=== PATIENT | female | born 1940 | race Caucasian/White ===

== ENCOUNTER 2019-03-29 16:51 | Inpatient (IN) | payer MEDICARE, OTHER ==
[~2019-03-29] VITALS: Ht 157.5 cm; Wt 61.2 kg
[2019-03-29] MEDS ORDERED: Z GUARD REMEDY PASTE 57 GM TUBE TOP PRN (17:45)
[2019-03-29] MEDS ORDERED: MAGNESIUM HYDROXIDE 30 ML LIQUID UDC PO PRN (17:45)
--- NOTE | 2019-03-29 17:45 | NUR ---
PATIENT ADMITTED FROM [facility] STATUS POST CERVICAL LAMINECTOMY, ALERT, ORIENTED X3, NO SOB,RESP EVEN NONLABORED, SKIN WARM AND DRY TO TOUCH, INCISION INTACT, ROB INTACT, TO THE BACK OF THE NECK, DRY AND CLEAN, WITH LEFT SIDED WEAKNESS, MD AWARE TO RECONCILE THE MEDS, NO DISTRESS NOTED, ENDORSED NEXT SHIFT ACCORDINGLY
[2019-03-29] MEDS ORDERED: DEXTROSE 50% 50 ML DISP.SYRIN IV PRN (18:30)
[2019-03-29 19:40] VITALS: BP 130/78
[2019-03-29 20:00] VITALS: BP 118/66
[2019-03-29] MEDS: BLOOD SUGAR DIAGNOSTIC 1 EACH STRIP VI SCH (20:42)
[2019-03-29] MEDS: INSULIN REGULAR, HUMAN 300 UNIT/3 ML VIAL SQ PRN (20:45)
[2019-03-29] MEDS ORDERED: DOCUSATE SODIUM 100 MG CAPSULE PO SCH (21:00)
[2019-03-29] MEDS: OXYCODONE HCL 5 MG TABLET PO PRN (21:15)
[2019-03-30] MEDS: OXYCODONE HCL 5 MG TABLET PO PRN ×3 (00:56→11:48)
--- NOTE | 2019-03-30 01:19 | NUR ---
Received patient in bed upon initial rounds. AAOx3-4. Patient been screaming on & off @beginning of the shift. Repositioned for comfort. HOB up @ 45degrees at all times. VSS. Needs attended. Medicated for pain as ordered. Kristin intact DANIA posterior neck. Bedrest maintained. Left side hemiparesis noted. LUE/LLE weak. Fall precautions maintained. Bed alarm on. Tolerated po meds well. Sykes catheter intact draining yellow urine.Patient has hx of urinary retention. Turned to sides. Accucheck @ 2100 175 with coverage given. Will monitor patient.
[2019-03-30 05:00] VITALS: BP 132/90
[2019-03-30] MEDS: BLOOD SUGAR DIAGNOSTIC 1 EACH STRIP VI SCH ×4 (06:30→20:48)
--- NOTE | 2019-03-30 06:54 | NUR ---
End of shift noted: Patient been up all night. Repositioned for comfort. Turned to sides. HOB up @ all times, 45 degrees. Patient medicated with Oxy 10mg po for pain. patient still keep on calling for pain and wants to be turned [id number]. Posterior neck with augusto [employer]. Fall precautions maintained. Siderails up for safety. Sykes catheter intact draining yellow urine. I & O monitor. Incontinent of BM x1 kept clean and dry. Needs attended. Will monitor patient. Left side weakness noted, with contractures to left lower extremity. LLE with brace intact.VSS.
[2019-03-30] MEDS ORDERED: PANTOPRAZOLE SODIUM 40 MG TABLET.DR PO SCH (07:00)
[2019-03-30 07:16] LABS: BASOPHILS # (AUTO) 0.1 K/uL (0.0-8.0); BASOPHILS % (AUTO) 0.7 % (0.0-2.0); EOSINOPHILS # (AUTO) 0.2 K/uL (0.0-0.7); EOSINOPHILS % (AUTO) 2.5 % (0.0-7.0); HEMATOCRIT 31.3 % (31.2-41.9); HEMOGLOBIN 10.7 g/dL (10.9-14.3); LYMPHOCYTES # (AUTO) 1.4 K/uL (20.0-40.0); LYMPHOCYTES % (AUTO) 16.3 % (20.5-51.5); MEAN CORPUSCULAR HEMOGLOBIN 32.8 uug (24.7-32.8); MEAN CORPUSCULAR HGB CONC 34 g/dL (32.3-35.6); MEAN CORPUSCULAR VOLUME 95.7 fL (75.5-95.3); MONOCYTES # (AUTO) 0.6 K/uL (2.0-10.0); MONOCYTES % (AUTO) 6.9 % (0.0-11.0); NEUTROPHILS # (AUTO) 6.5 K/uL (1.8-8.9); NEUTROPHILS % (AUTO) 73.6 % (38.5-71.5); PLATELET COUNT (AUTO) 319 K/uL (179-408); RED BLOOD CELL COUNT(AUTO) 3.27 MIL/uL (3.63-4.92); WHITE BLOOD COUNT (AUTO) 8.9 K/uL (3.8-11.8)
[2019-03-30 07:24] LABS: MAGNESIUM 1.5 mg/dL (1.8-2.4); POTASSIUM 4.2 mmol/L (3.5-5.1)
[2019-03-30 08:00] VITALS: BP 148/71
--- NOTE | 2019-03-30 10:42 | NUR ---
Received patient in room, awake. Pt. is AAO x 2-3. IN NO acute distress or SOB noted. Patient S/P Cervical Laminectomy. Surgical site on lower neck with augusto, dry and open to air. Vital signs taken and stable. Patient noted with severe upper and lower left sided weakness. F/C in place for retention; intact and patent. Pt. noted with nausea/vomiting, paged absence management consultant MD to reconcile meds and regarding pt.'s condition, waiting absence management consultant back. Needs attended, safety measures in place and will continue with care.
[2019-03-30] MEDS ORDERED: OXYCODONE HCL 5 MG TABLET PO PRN ×2 (11:45→12:00)
[2019-03-30] MEDS: ONDANSETRON ODT 4 MG TAB.RAPDIS SL PRN (11:50)
[2019-03-30] MEDS ORDERED: MAGNESIUM OXIDE 400 MG TABLET PO ONE (12:00)
--- NOTE | 2019-03-30 12:12 | NUR ---
Patient refused OXYIR 10mg pain pill after asking for pain medication and moaning while being repositioned. Returned medication after verifying with another RN.
[2019-03-30] MEDS: INSULIN REGULAR, HUMAN 300 UNIT/3 ML VIAL SQ PRN ×3 (12:22→20:53)
[2019-03-30] MEDS: HYDROCHLOROTHIAZIDE 12.5 MG CAPSULE PO SCH (13:26)
[2019-03-30] MEDS: LINAGLIPTIN 5 MG TABLET PO SCH (13:26)
[2019-03-30] MEDS: LOSARTAN POTASSIUM 50 MG TABLET PO SCH (14:06)
[2019-03-30] MEDS: HEPARIN SODIUM,PORCINE 5,000 UNITS/ML VIAL SQ SCH ×2 (14:07→20:54)
[2019-03-30 16:43] VITALS: BP 120/72
[2019-03-30] MEDS: DOCUSATE SODIUM 100 MG CAPSULE PO SCH (16:43)
[2019-03-30] MEDS ORDERED: Medication Not On Formulary EA (Lubiprostone (Amitiza) 24 MCG) PO SCH (17:00)
--- NOTE | 2019-03-30 17:56 | NUR ---
Patient sitting up in bed at this time, Vital signs stable. IN NO acute distress. Patient noted screaming when in need of care. Repositioned for comfort as needed, explained to patient to use call light when in need of help. Patient assisted with feeding. 2 person assist with care. Tolerated due medications well. Monitored closely, safety measures in place, call light left at bed side and will continue with care.
--- NOTE | 2019-03-30 18:28 | NUR ---
Patient seen by Dr. Cash and with an order for Psych eval. Paged Dr. Acosta and informed regarding patient's condition.
[2019-03-30 20:03] VITALS: BP 127/63
[2019-03-30] MEDS: GABAPENTIN 100 MG CAPSULE PO SCH (20:42)
[2019-03-30] MEDS: MONTELUKAST SODIUM 10 MG TABLET PO SCH (20:43)
[2019-03-30] MEDS: SIMVASTATIN 40 MG TABLET PO SCH (20:43)
[2019-03-30] MEDS ORDERED: Medication Not On Formulary EA (Heparin Sodium,Porcine (Heparin Sodium) 5,000 UNIT) SUBCUT SCH (21:00)
--- NOTE | 2019-03-31 00:08 | NUR ---
awake upon rounds. aaox2-3 no acute distress noted. VSS. kept comfortable. repositioned for comfort. turned q2hr. needs attended. Will monitor patient. Denies any pain nor any discomfort. Sykes catheter intact draining yellow urine. I & O monitor.
[2019-03-31 04:00] VITALS: BP 127/66
[2019-03-31] MEDS: PANTOPRAZOLE SODIUM 40 MG TABLET.DR PO SCH (06:33)
[2019-03-31] MEDS: BLOOD SUGAR DIAGNOSTIC 1 EACH STRIP VI SCH ×4 (06:37→20:48)
[2019-03-31 07:42] VITALS: BP 120/70
[2019-03-31] MEDS: LINAGLIPTIN 5 MG TABLET PO SCH (08:24)
[2019-03-31] MEDS: EZETIMIBE 10 MG TABLET PO SCH (08:25)
[2019-03-31] MEDS: DOCUSATE SODIUM 100 MG CAPSULE PO SCH ×2 (08:25→16:35)
[2019-03-31] MEDS: LOSARTAN POTASSIUM 50 MG TABLET PO SCH (08:25)
[2019-03-31] MEDS: HYDROCHLOROTHIAZIDE 12.5 MG CAPSULE PO SCH (08:25)
[2019-03-31] MEDS: HEPARIN SODIUM,PORCINE 5,000 UNITS/ML VIAL SQ SCH ×2 (08:37→20:52)
[2019-03-31] MEDS ORDERED: Medication Not On Formulary EA (Sitagliptin Phosphate (Januvia) 25 MG) PO SCH (09:00)
[2019-03-31] MEDS ORDERED: Medication Not On Formulary EA (Esomeprazole Mag Trihydrate (Nexium) 40 MG) PO SCH (09:00)
[2019-03-31] MEDS ORDERED: Medication Not On Formulary EA (Losartan/Hydrochlorothiazide (Losartan-Hctz 100-12.5 Mg PO SCH (09:00)
--- NOTE | 2019-03-31 10:31 | NUR ---
PATIENT ON AND OFF SCREAMING IF SHE NEEDS SOMETHING. PATIENT REORIENT TO CALL LIGHT IF NEED SOMETHING. PATIENT FOR PSYCH CONSULT FOR SUICIDAL THOUGHTS WITHOUT PLAN. ASSISTED WITH BREAKFAST. CONSUMED ABOUT 80% OF MEAL. NOT IN DISTRESS. WILL CONTINUE MONITOR
[2019-03-31] MEDS: INSULIN REGULAR, HUMAN 300 UNIT/3 ML VIAL SQ PRN ×2 (11:43→20:54)
[2019-03-31] MEDS: FLUTICASONE/VILANTEROL 1 EACH BLST.W.DEV INH SCH (12:36)
--- NOTE | 2019-03-31 13:51 | NUR ---
PATIENT SEEN AND EXAMINED BY MD TRONCOSO FOR PSYCH CONSULT FOR VERBALIZING WANTS TO YESTERDAY. MD ORDERED LEXAPRO 5MG FOR ANTI-DEPRESSION. PATIENT NO VERBALIZATION OF ANYTHING DURING ROUNDS. WILL CONTINUE MONITOR
[2019-03-31 15:36] VITALS: BP 102/59
--- NOTE | 2019-03-31 17:12 | NUR ---
PATIENT SEEN AND EXAMINED BY LINCOLN EDWARD WITH ORDER RESUME ASPIRIN ON APR 07. WILL CONTINUE MONITOR
[2019-03-31] MEDS: GABAPENTIN 100 MG CAPSULE PO SCH (20:42)
[2019-03-31] MEDS: MONTELUKAST SODIUM 10 MG TABLET PO SCH (20:42)
[2019-03-31] MEDS: SIMVASTATIN 40 MG TABLET PO SCH (20:42)
[2019-03-31 20:43] VITALS: BP 104/64
[2019-03-31] MEDS: INSULIN GLARGINE,HUM 300 UNITS/3 ML CARTRIDGE SQ SCH (20:53)
[2019-04-01] MEDS: OXYCODONE HCL 5 MG TABLET PO PRN ×2 (00:18→17:19)
--- NOTE | 2019-04-01 04:29 | NUR ---
pt extremely restless during night with constant screaming that she wants to . comfort measures put in place, patient medicated for pain in the neck and reposition every hour. pt unable to sleep at all during shift.
[2019-04-01 05:49] VITALS: BP 103/58
[2019-04-01] MEDS: PANTOPRAZOLE SODIUM 40 MG TABLET.DR PO SCH (06:11)
[2019-04-01] MEDS: BLOOD SUGAR DIAGNOSTIC 1 EACH STRIP VI SCH ×4 (06:54→20:10)
[2019-04-01] MEDS: LINAGLIPTIN 5 MG TABLET PO SCH (08:15)
[2019-04-01] MEDS: HYDROCHLOROTHIAZIDE 12.5 MG CAPSULE PO SCH (08:15)
[2019-04-01] MEDS: EZETIMIBE 10 MG TABLET PO SCH (08:15)
[2019-04-01] MEDS: DOCUSATE SODIUM 100 MG CAPSULE PO SCH ×2 (08:16→17:19)
[2019-04-01] MEDS: ESCITALOPRAM OXALATE 10 MG TABLET PO SCH (08:17)
[2019-04-01] MEDS: FLUTICASONE/VILANTEROL 1 EACH BLST.W.DEV INH SCH (08:18)
[2019-04-01] MEDS: HEPARIN SODIUM,PORCINE 5,000 UNITS/ML VIAL SQ SCH ×2 (08:18→20:04)
[2019-04-01] MEDS: INSULIN REGULAR, HUMAN 300 UNIT/3 ML VIAL SQ PRN ×4 (08:22→20:15)
[2019-04-01] MEDS: LOSARTAN POTASSIUM 50 MG TABLET PO SCH (08:29)
--- NOTE | 2019-04-01 14:05 | NUR ---
INTERDISCIPLINARY TEAM CONFERENCE
--- NOTE | 2019-04-01 14:58 | NUR ---
INDIVIDUALIZED PLAN OF CARE
[2019-04-01] MEDS: BISACODYL 5 MG TABLET.DR PO PRN (17:18)
[2019-04-01 18:10] VITALS: BP 138/63
--- NOTE | 2019-04-01 18:24 | NUR ---
RECEIVED PATIENT AWAKE IN BED. CONTINUE MONITORING BEHAVIORAL PROBLEM. ON PAIN MANAGEMENT IF NEEDED WITH GOOD EFFECT. PATIENT CONTINUE TURN POSITIONING. SKIN CARE PROVIDED. NOT IN DISTRESS. WILL CONTINUE MONITOR
--- NOTE | 2019-04-01 19:33 | NUR ---
PATIENT IS IN BED, ASLEEP, BUT EASILY AROUSED WITH CALLING OF NAME. ALERT AND VERBALLY RESPONSIVE. DENIES PAIN AT THIS TIME. NO RESPIRATORY OR ACUTE DISTRESS AT THIS TIME. PATIENT CONTINUES TO DRAIN CLEAR YELLOW URINE. FALL AND SAFETY PRECAUTIONS OBSERVED, WILL CONTINUE TO MONITOR PATIENT. ALL NEEDS ATTENDED.
[2019-04-01] MEDS: SIMVASTATIN 40 MG TABLET PO SCH (20:03)
[2019-04-01] MEDS: GABAPENTIN 100 MG CAPSULE PO SCH (20:03)
[2019-04-01] MEDS: MONTELUKAST SODIUM 10 MG TABLET PO SCH (20:03)
[2019-04-01] MEDS: INSULIN GLARGINE,HUM 300 UNITS/3 ML CARTRIDGE SQ SCH (20:12)
[2019-04-01 20:40] VITALS: BP 130/62
[2019-04-01 20:45] VITALS: BP 104/43
[2019-04-02] MEDS: OXYCODONE HCL 5 MG TABLET PO PRN (03:59)
[2019-04-02 04:48] VITALS: BP 124/63
--- NOTE | 2019-04-02 06:19 | NUR ---
PATIENT IS IN BED WITH HEAD OF BED ELEVATED, TURNED TO HER RIGHT SIDE. ALERT AND VERBALLY RESPONSIVE. CAN MAKE NEEDS KNOWN. DENIES PAIN AT THIS TIME. DENIES DIFFICULTY BREATHING. RESPIRATIONS EVEN AND UNLABORED. FALL AND SAFETY PRECAUTIONS OBSERVED. RECEIVED 1-PERSON ASSIST WITH ADLS. KEPT PATIENT WARM, DRY, AND COMFORTABLE. LEFT PATIENT IN BED WITH BED WHEELS LOCKED, CALL LIGHT AND PERSONAL BELONGINGS WITHIN REACH. BED AT LOW POSITION AND BED ALARM ON.
[2019-04-02] MEDS: PANTOPRAZOLE SODIUM 40 MG TABLET.DR PO SCH (06:21)
[2019-04-02] MEDS: BLOOD SUGAR DIAGNOSTIC 1 EACH STRIP VI SCH ×4 (06:38→20:37)
[2019-04-02 07:21] LABS: BASOPHILS % (AUTO) 0.5 % (0.0-2.0); EOSINOPHILS # (AUTO) 0.2 K/uL (0.0-0.7); EOSINOPHILS % (AUTO) 3.1 % (0.0-7.0); HEMATOCRIT 30.4 % (31.2-41.9); HEMOGLOBIN 10.4 g/dL (10.9-14.3); LYMPHOCYTES # (AUTO) 1.7 K/uL (20.0-40.0); LYMPHOCYTES % (AUTO) 22.9 % (20.5-51.5); MEAN CORPUSCULAR HEMOGLOBIN 32.6 uug (24.7-32.8); MEAN CORPUSCULAR HGB CONC 34 g/dL (32.3-35.6); MEAN CORPUSCULAR VOLUME 95.4 fL (75.5-95.3); MONOCYTES # (AUTO) 0.7 K/uL (2.0-10.0); MONOCYTES % (AUTO) 9.5 % (0.0-11.0); NEUTROPHILS # (AUTO) 4.8 K/uL (1.8-8.9); PLATELET COUNT (AUTO) 400 K/uL (179-408); RED BLOOD CELL COUNT(AUTO) 3.19 MIL/uL (3.63-4.92); WHITE BLOOD COUNT (AUTO) 7.5 K/uL (3.8-11.8)
[2019-04-02 07:33] LABS: MAGNESIUM 1.7 mg/dL (1.8-2.4); PHOSPHOROUS 4.5 mg/dL (2.5-4.9); POTASSIUM 4.1 mmol/L (3.5-5.1)
[2019-04-02 07:34] VITALS: BP 113/59
[2019-04-02] MEDS: ESCITALOPRAM OXALATE 10 MG TABLET PO SCH (08:53)
[2019-04-02] MEDS: DOCUSATE SODIUM 100 MG CAPSULE PO SCH ×2 (08:53→16:39)
[2019-04-02] MEDS: FLUTICASONE/VILANTEROL 1 EACH BLST.W.DEV INH SCH (08:53)
[2019-04-02] MEDS: LOSARTAN POTASSIUM 50 MG TABLET PO SCH (08:55)
[2019-04-02] MEDS: LINAGLIPTIN 5 MG TABLET PO SCH (08:55)
[2019-04-02] MEDS: EZETIMIBE 10 MG TABLET PO SCH (08:55)
[2019-04-02] MEDS: HEPARIN SODIUM,PORCINE 5,000 UNITS/ML VIAL SQ SCH ×2 (09:07→20:40)
[2019-04-02] MEDS: HYDROCHLOROTHIAZIDE 12.5 MG CAPSULE PO SCH (09:09)
[2019-04-02] MEDS: INSULIN REGULAR, HUMAN 300 UNIT/3 ML VIAL SQ PRN ×3 (12:15→20:40)
[2019-04-02 15:12] VITALS: BP 108/52
[2019-04-02] MEDS ORDERED: MAGNESIUM OXIDE 400 MG TABLET PO ONE (15:30)
--- NOTE | 2019-04-02 19:29 | NUR ---
Patient in stable condition, vital signs stable. IN NO acute distress or SOB noted. Pt. able to express needs. Due medications administered. Pt. denies pain at this time. Stated she does not want any pain pills. Repositioned for comfort as needed. Patient assisted with feeding. Monitored closely, safety measures in place, call light left at bed side, endorsed to next shift and will continue with care.
--- NOTE | 2019-04-02 19:40 | NUR ---
RECEIVED PATIENT IN BED, ASLEEP, BUT EASILY AROUSED. ALERT AND VERBALLY RESPONSIVE. DENIES PAIN AT THIS TIME. NO RESPIRATORY OR ACUTE DISTRESS AT THIS TIME. HAS BACA CATHETER, DRAINING CLEAR YELLOW URINE. FALL AND SAFETY PRECAUTIONS OBSERVED, WILL CONTINUE TO MONITOR PATIENT. ALL NEEDS ATTENDED.
[2019-04-02 20:14] VITALS: BP 112/66
[2019-04-02] MEDS: MONTELUKAST SODIUM 10 MG TABLET PO SCH (20:36)
[2019-04-02] MEDS: GABAPENTIN 100 MG CAPSULE PO SCH (20:36)
[2019-04-02] MEDS: SIMVASTATIN 40 MG TABLET PO SCH (20:36)
[2019-04-02] MEDS: INSULIN GLARGINE,HUM 300 UNITS/3 ML CARTRIDGE SQ SCH (20:39)
[2019-04-03] MEDS: OXYCODONE HCL 5 MG TABLET PO PRN (04:05)
--- NOTE | 2019-04-03 05:42 | NUR ---
PATIENT IS IN BED WITH HEAD OF BED ELEVATED, TURNED TO HER RIGHT SIDE. ALERT AND VERBALLY RESPONSIVE. CAN MAKE NEEDS KNOWN. DENIES PAIN AT THIS TIME. RECEIVED OXYCODONE ORDERED FOR PAIN, NOTED WITH RELIEF/ EFFECTIVE. RESPIRATIONS EVEN AND UNLABORED. FALL AND SAFETY PRECAUTIONS OBSERVED. RECEIVED 1-PERSON ASSIST WITH ADLS. KEPT PATIENT WARM, DRY, AND COMFORTABLE. BACA CATHETER DRAINING CLEAR YELLOW URINE. BACA CATHETER INTACT AND PATENT. LEFT PATIENT IN BED WITH BED WHEELS LOCKED, CALL LIGHT AND PERSONAL BELONGINGS WITHIN REACH. BED AT LOW POSITION AND BED ALARM ON.
[2019-04-03] MEDS: PANTOPRAZOLE SODIUM 40 MG TABLET.DR PO SCH (06:06)
[2019-04-03] MEDS: BLOOD SUGAR DIAGNOSTIC 1 EACH STRIP VI SCH ×4 (06:45→20:41)
[2019-04-03 08:00] VITALS: BP 105/54
[2019-04-03] MEDS: ESCITALOPRAM OXALATE 10 MG TABLET PO SCH (09:09)
[2019-04-03] MEDS: DOCUSATE SODIUM 100 MG CAPSULE PO SCH ×2 (09:09→16:51)
[2019-04-03] MEDS: HYDROCHLOROTHIAZIDE 12.5 MG CAPSULE PO SCH (09:11)
[2019-04-03] MEDS: LINAGLIPTIN 5 MG TABLET PO SCH (09:11)
[2019-04-03] MEDS: EZETIMIBE 10 MG TABLET PO SCH (09:11)
[2019-04-03] MEDS: FLUTICASONE/VILANTEROL 1 EACH BLST.W.DEV INH SCH (09:11)
[2019-04-03] MEDS: HEPARIN SODIUM,PORCINE 5,000 UNITS/ML VIAL SQ SCH ×2 (09:14→20:39)
[2019-04-03] MEDS: LOSARTAN POTASSIUM 50 MG TABLET PO SCH (12:49)
[2019-04-03 16:32] VITALS: BP 122/64
--- NOTE | 2019-04-03 19:17 | NUR ---
RECEIVED PATIENT IN BED. AWAKE AND ALERT AND VERBALLY RESPONSIVE. AT BEDSIDE. DENIES PAIN AT THIS TIME. NO RESPIRATORY OR ACUTE DISTRESS AT THIS TIME. HAS BACA CATHETER, DRAINING CLEAR YELLOW URINE. FALL AND SAFETY PRECAUTIONS OBSERVED, WILL CONTINUE TO MONITOR PATIENT. ALL NEEDS ATTENDED.
[2019-04-03] MEDS: SIMVASTATIN 40 MG TABLET PO SCH (20:35)
[2019-04-03] MEDS: MONTELUKAST SODIUM 10 MG TABLET PO SCH (20:36)
[2019-04-03] MEDS: GABAPENTIN 100 MG CAPSULE PO SCH (20:36)
[2019-04-03] MEDS: INSULIN GLARGINE,HUM 300 UNITS/3 ML CARTRIDGE SQ SCH (20:39)
[2019-04-03] MEDS: INSULIN REGULAR, HUMAN 300 UNIT/3 ML VIAL SQ PRN (20:40)
[2019-04-03 21:08] VITALS: BP 130/62
[2019-04-04 04:00] VITALS: BP 114/61
--- NOTE | 2019-04-04 05:31 | NUR ---
PATIENT IS IN BED, ASLEEP BUT EASILY AROUSED. NO RESPIRATORY OR ACUTE DISTRESS. NO FACIAL GRIMACING NOTED AT THIS TIME. FALL AND SAFETY PRECAUTIONS OBSERVED. RECEIVED 1-PERSON ASSIST WITH ADLS. BACA CATHETER DRAINING CLEAR YELLOW URINE. BACA CATHETER INTACT AND PATENT. KEPT PATIENT WARM, DRY, AND COMFORTABLE. ALL NEEDS ATTENDED.
[2019-04-04] MEDS: BISACODYL 5 MG TABLET.DR PO PRN (06:03)
[2019-04-04] MEDS: PANTOPRAZOLE SODIUM 40 MG TABLET.DR PO SCH (06:03)
[2019-04-04] MEDS: BLOOD SUGAR DIAGNOSTIC 1 EACH STRIP VI SCH ×4 (06:41→20:25)
[2019-04-04 08:00] VITALS: BP 112/49
[2019-04-04] MEDS: FLUTICASONE/VILANTEROL 1 EACH BLST.W.DEV INH SCH (10:19)
[2019-04-04] MEDS: DOCUSATE SODIUM 100 MG CAPSULE PO SCH ×2 (10:20→17:31)
[2019-04-04] MEDS: ESCITALOPRAM OXALATE 10 MG TABLET PO SCH (10:21)
[2019-04-04] MEDS: LOSARTAN POTASSIUM 50 MG TABLET PO SCH (10:21)
[2019-04-04] MEDS: HYDROCHLOROTHIAZIDE 12.5 MG CAPSULE PO SCH (10:22)
[2019-04-04] MEDS: LINAGLIPTIN 5 MG TABLET PO SCH (10:30)
[2019-04-04] MEDS: EZETIMIBE 10 MG TABLET PO SCH (10:31)
[2019-04-04] MEDS: HEPARIN SODIUM,PORCINE 5,000 UNITS/ML VIAL SQ SCH ×2 (10:31→20:20)
[2019-04-04 16:36] VITALS: BP 95/68
[2019-04-04] MEDS: INSULIN REGULAR, HUMAN 300 UNIT/3 ML VIAL SQ PRN ×2 (18:43→20:21)
[2019-04-04] MEDS: SIMVASTATIN 40 MG TABLET PO SCH (20:15)
[2019-04-04] MEDS: GABAPENTIN 100 MG CAPSULE PO SCH (20:15)
[2019-04-04] MEDS: MONTELUKAST SODIUM 10 MG TABLET PO SCH (20:16)
[2019-04-04] MEDS: INSULIN GLARGINE,HUM 300 UNITS/3 ML CARTRIDGE SQ SCH (20:21)
[2019-04-04 20:30] VITALS: BP 100/55
--- NOTE | 2019-04-04 20:47 | NUR ---
Received pt resting in bed. AAO x2-3. No acute distress noted. Denies pain. Turned and repositioned. Sykes catheter draining with clear yellow colored urine. Accucheck 182. Insulin coverage given as per sliding scale. Due meds given as ordered. Safety measures maintained. Call light and personal items within reach. Will continue to monitor.
[2019-04-05 04:00] VITALS: BP 98/53
[2019-04-05] MEDS: PANTOPRAZOLE SODIUM 40 MG TABLET.DR PO SCH (06:14)
[2019-04-05] MEDS: BLOOD SUGAR DIAGNOSTIC 1 EACH STRIP VI SCH ×4 (06:41→20:43)
[2019-04-05 07:32] VITALS: BP 105/60
[2019-04-05] MEDS: ESCITALOPRAM OXALATE 10 MG TABLET PO SCH (08:46)
[2019-04-05] MEDS: DOCUSATE SODIUM 100 MG CAPSULE PO SCH ×2 (08:46→17:11)
[2019-04-05] MEDS: EZETIMIBE 10 MG TABLET PO SCH (08:46)
[2019-04-05] MEDS: LINAGLIPTIN 5 MG TABLET PO SCH (08:46)
[2019-04-05] MEDS: HYDROCHLOROTHIAZIDE 12.5 MG CAPSULE PO SCH (08:46)
[2019-04-05] MEDS: HEPARIN SODIUM,PORCINE 5,000 UNITS/ML VIAL SQ SCH ×2 (08:48→20:41)
[2019-04-05] MEDS: FLUTICASONE/VILANTEROL 1 EACH BLST.W.DEV INH SCH (08:51)
[2019-04-05] MEDS: LOSARTAN POTASSIUM 50 MG TABLET PO SCH (08:56)
[2019-04-05] MEDS: INSULIN REGULAR, HUMAN 300 UNIT/3 ML VIAL SQ PRN ×2 (11:57→17:14)
[2019-04-05] MEDS: BISACODYL 5 MG TABLET.DR PO PRN (15:43)
[2019-04-05 15:44] VITALS: BP 98/49
[2019-04-05] MEDS: OXYCODONE HCL 5 MG TABLET PO PRN (15:44)
--- NOTE | 2019-04-05 17:15 | NUR ---
BS of 157mg/dl, Insulin 2 units administered per sliding scale.
--- NOTE | 2019-04-05 18:55 | NUR ---
Patient is AAO x 2; able to express needs. NO acute distress noted. Vital signs taken and stable for patient. Due meds administered and tolerated well. Repositioned for comfort throughout shift and as needed. OXYIR 10mg 2 tabs PRN administered for generalized pain and effective. Patient no C/O pain at this time. Patient assisted with feeding during shift. Monitored closely, safety measures in place, call light left at bed side, endorsed to next shift and will continue with care.
--- NOTE | 2019-04-05 19:37 | NUR ---
Endorsed to PM nurse.
--- NOTE | 2019-04-05 19:42 | NUR ---
RECEIVED PATIENT IN BED. ALERT AND VERBALLY RESPONSIVE. DENIES PAIN AT THIS TIME. NO RESPIRATORY OR ACUTE DISTRESS AT THIS TIME. HAS BACA CATHETER, DRAINING CLEAR YELLOW URINE. FALL AND SAFETY PRECAUTIONS OBSERVED, WILL CONTINUE TO MONITOR PATIENT. ALL NEEDS ATTENDED.
[2019-04-05 20:00] VITALS: BP 105/63
[2019-04-05] MEDS: SIMVASTATIN 40 MG TABLET PO SCH (20:35)
[2019-04-05] MEDS: GABAPENTIN 100 MG CAPSULE PO SCH (20:35)
[2019-04-05] MEDS: MONTELUKAST SODIUM 10 MG TABLET PO SCH (20:35)
[2019-04-05] MEDS: INSULIN GLARGINE,HUM 300 UNITS/3 ML CARTRIDGE SQ SCH (20:42)
[2019-04-06 05:00] VITALS: BP 123/75
--- NOTE | 2019-04-06 06:22 | NUR ---
PATIENT IS IN BED, ALERT AND VERBALLY RESPONSIVE. AFEBRILE. NO RESPIRATORY DISTRESS. NO COMPLAINTS OF PAIN THROUGHOUT THE SHIFT. PATIENT SLEPT THROUGH THE NIGHT WITHOUT DIFFICULTY. KEPT PATIENT WARM, DRY, AND COMFORTABLE. ALL NEEDS ATTENDED. FALL AND SAFETY PRECAUTIONS OBSERVED.
--- NOTE | 2019-04-06 06:24 | NUR ---
CONTINUATION OF NOTE. PATIENT CONTINUES TO DRAIN CLEAR YELLOW URINE. BACA CATHETER REMAINS INTACT AND PATENT.
[2019-04-06] MEDS: PANTOPRAZOLE SODIUM 40 MG TABLET.DR PO SCH (06:46)
[2019-04-06] MEDS: BLOOD SUGAR DIAGNOSTIC 1 EACH STRIP VI SCH ×3 (06:46→16:39)
[2019-04-06 08:00] VITALS: BP 107/59
[2019-04-06] MEDS: ESCITALOPRAM OXALATE 10 MG TABLET PO SCH (08:28)
[2019-04-06] MEDS: HYDROCHLOROTHIAZIDE 12.5 MG CAPSULE PO SCH (08:28)
[2019-04-06] MEDS: DOCUSATE SODIUM 100 MG CAPSULE PO SCH ×2 (08:28→16:41)
[2019-04-06] MEDS: EZETIMIBE 10 MG TABLET PO SCH (08:28)
[2019-04-06] MEDS: HEPARIN SODIUM,PORCINE 5,000 UNITS/ML VIAL SQ SCH ×2 (08:30→20:04)
[2019-04-06] MEDS: OXYCODONE HCL 5 MG TABLET PO PRN (08:30)
[2019-04-06] MEDS: FLUTICASONE/VILANTEROL 1 EACH BLST.W.DEV INH SCH (08:31)
[2019-04-06] MEDS: LOSARTAN POTASSIUM 50 MG TABLET PO SCH (09:00)
[2019-04-06] MEDS: LINAGLIPTIN 5 MG TABLET PO SCH (09:12)
[2019-04-06] MEDS: INSULIN REGULAR, HUMAN 300 UNIT/3 ML VIAL SQ PRN (11:46)
--- NOTE | 2019-04-06 13:43 | NUR ---
Patient is AAO x 2-3. NO acute distress noted. Vital signs stable for patient. Patient noted complaining of pain when moving and while care is being provided earlier during shift. OXYIR 10MG 2 tabs PO administered for pain and effective. Patient sleeping comfortably at this time. safety measures in place, call light left at bed side and will continue with care.
[2019-04-06] MEDS: METHOCARBAMOL 750 MG TABLET PO PRN (15:45)
--- NOTE | 2019-04-06 17:00 | NUR ---
Patient refused Insulin per sliding scale at dinner time.
[2019-04-06 17:02] VITALS: BP 103/60
--- NOTE | 2019-04-06 17:44 | NUR ---
Vital signs stable. Robaxin 750mg PO PRN 1 tab administered, Patient still noted screaming while being moved for care. Patient repositioned for comfort throughout shift. Denies any pain at this time. With continuos PT/OT therapy. With an order for left hand brace for 4-6hrs or as tolerated while sitting up. All other needs attended, monitored closely, safety measures in place, call light left at bed side and will continue with care.
--- NOTE | 2019-04-06 19:48 | NUR ---
RECEIVED PATIENT IN BED, ALERT AND VERBALLY RESPONSIVE, AFEBRILE. CAN MAKE NEEDS KNOWN. NO RESPIRATORY DISTRESS. REQUESTED TO BE REPOSITIONED UPON ROUNDS. REPOSITIONED REQUESTED. KEPT PATIENT COMFORTABLE. PATIENT WITH BACA CATHETER IN PLACE AND INTACT, DRAINING CLEAR YELLOW URINE. WILL CONTINUE TO MONITOR PATIENT. FALL AND SAFETY PRECAUTIONS OBSERVED. ALL NEEDS ATTENDED. CALL LIGHT WITHIN REACH, BED WHEELS LOCKED, BED AT LOW POSITION AND BED ALARM ON.
[2019-04-06 19:59] VITALS: BP 99/64
[2019-04-06] MEDS: GABAPENTIN 100 MG CAPSULE PO SCH (20:04)
[2019-04-06] MEDS: MONTELUKAST SODIUM 10 MG TABLET PO SCH (20:04)
[2019-04-06] MEDS: BISACODYL 5 MG TABLET.DR PO PRN (20:04)
[2019-04-06] MEDS: SIMVASTATIN 40 MG TABLET PO SCH (20:04)
[2019-04-06] MEDS: INSULIN GLARGINE,HUM 300 UNITS/3 ML CARTRIDGE SQ SCH (21:05)
[2019-04-06] MEDS: OXYCODONE HCL 10 MG TAB.SR.12H PO SCH (21:06)
--- NOTE | 2019-04-07 04:00 | NUR ---
PATIENT IS IN BED, ASLEEP. IN NO RESPIRATORY DISTRESS. EASILY AROUSED. KEPT WARM, DRY, AND COMFORTABLE. SLEPT WELL THROUGH THE NIGHT. FALL AND SAFETY PRECAUTIONS OBSERVED. PATIENT CONTINUES TO DRAIN CLEAR YELLOW URINE FROM BACA CATHETER. BACA CATHETER INTACT AND PATENT. WILL CONTINUE TO MONITOR PATIENT.
[2019-04-07 04:50] VITALS: BP 102/52
[2019-04-07] MEDS: PANTOPRAZOLE SODIUM 40 MG TABLET.DR PO SCH (06:04)
[2019-04-07] MEDS: OXYCODONE HCL 10 MG TAB.SR.12H PO SCH ×3 (06:05→22:46)
[2019-04-07 08:11] VITALS: BP 111/58
[2019-04-07] MEDS: ASPIRIN 81 MG TAB.CHEW GT SCH (08:36)
[2019-04-07] MEDS: HYDROCHLOROTHIAZIDE 12.5 MG CAPSULE PO SCH (08:37)
[2019-04-07] MEDS: HEPARIN SODIUM,PORCINE 5,000 UNITS/ML VIAL SQ SCH ×2 (08:37→20:49)
[2019-04-07] MEDS: FLUTICASONE/VILANTEROL 1 EACH BLST.W.DEV INH SCH (08:37)
[2019-04-07] MEDS: DOCUSATE SODIUM 100 MG CAPSULE PO SCH ×2 (08:37→17:26)
[2019-04-07] MEDS: ESCITALOPRAM OXALATE 10 MG TABLET PO SCH (08:39)
[2019-04-07] MEDS: EZETIMIBE 10 MG TABLET PO SCH (08:39)
[2019-04-07] MEDS: LOSARTAN POTASSIUM 50 MG TABLET PO SCH (08:39)
[2019-04-07] MEDS: LINAGLIPTIN 5 MG TABLET PO SCH (08:40)
[2019-04-07] MEDS: MIRALAX 17 GM POWD.PACK PO SCH (08:44)
--- NOTE | 2019-04-07 12:24 | NUR ---
RECEIVED PATIENT AWAKE IN BED IN STABLE CONDITION. REMOVE ROB IN NECK BACK AREA. HEALING GOOD. APPLIED BETADINE AFTER REMOVAL. WILL CONTINUE MONITOR
[2019-04-07] MEDS ORDERED: BISACODYL 10 MG SUPP.RECT RC PRN (13:30)
[2019-04-07] MEDS: METHOCARBAMOL 750 MG TABLET PO PRN (14:44)
--- NOTE | 2019-04-07 14:45 | NUR ---
PATIENT SCREAMS FOR PAIN. ROBAXIN 750MG PRN GIVEN. REMOVE THE LEG BRACE. OFF LOADING THE HEEL WITH GOOD EFFECT. APPLIED ICE PACK ON LEFT LEG PAIN. WILL CONTINUE MONITOR
[2019-04-07] MEDS: ONDANSETRON ODT 4 MG TAB.RAPDIS SL PRN (15:25)
--- NOTE | 2019-04-07 15:26 | NUR ---
PATIENT VOMITED FOOD. ZOFRAN GIVEN SL EVERY 6HOURS PRN GIVEN WITH GOOD EFFECT.
[2019-04-07] MEDS ORDERED: ONDANSETRON ODT 4 MG TAB.RAPDIS SL PRN (15:30)
[2019-04-07 16:00] VITALS: BP 122/57
--- NOTE | 2019-04-07 19:50 | NUR ---
Sleeping during initial rounds. No s/s of respiratory distress. No s/s of pain/discomforts. Safety measure and fall precaution maintained. Continue care as planned.
[2019-04-07 20:48] VITALS: BP 149/44
[2019-04-07] MEDS: GABAPENTIN 100 MG CAPSULE PO SCH (20:51)
[2019-04-07] MEDS: SIMVASTATIN 40 MG TABLET PO SCH (20:51)
[2019-04-07] MEDS: MONTELUKAST SODIUM 10 MG TABLET PO SCH (20:52)
[2019-04-07] MEDS: INSULIN GLARGINE,HUM 300 UNITS/3 ML CARTRIDGE SQ SCH (20:54)
[2019-04-08 05:36] VITALS: BP 120/60
--- NOTE | 2019-04-08 05:47 | NUR ---
Shift End Report: Vs stable. Slept good. Screamer, complaint of pain when touched/turned. made comfortable at all times. Dulcolax supp per rectal given as needed and ordered for no Bm x3 days. All needs attended and met. No significant event reported. Continue current rehab plan of care.
[2019-04-08] MEDS: OXYCODONE HCL 10 MG TAB.SR.12H PO SCH ×2 (06:05→14:12)
[2019-04-08] MEDS: PANTOPRAZOLE SODIUM 40 MG TABLET.DR PO SCH (06:05)
[2019-04-08] MEDS: ASPIRIN 81 MG TAB.CHEW GT SCH (08:35)
[2019-04-08] MEDS: LINAGLIPTIN 5 MG TABLET PO SCH (08:35)
[2019-04-08] MEDS: DOCUSATE SODIUM 100 MG CAPSULE PO SCH ×2 (08:35→16:26)
[2019-04-08] MEDS: ESCITALOPRAM OXALATE 10 MG TABLET PO SCH (08:35)
[2019-04-08] MEDS: HYDROCHLOROTHIAZIDE 12.5 MG CAPSULE PO SCH (08:35)
[2019-04-08] MEDS: LOSARTAN POTASSIUM 50 MG TABLET PO SCH (08:36)
[2019-04-08] MEDS: FLUTICASONE/VILANTEROL 1 EACH BLST.W.DEV INH SCH (08:36)
[2019-04-08] MEDS: EZETIMIBE 10 MG TABLET PO SCH (08:36)
[2019-04-08] MEDS: HEPARIN SODIUM,PORCINE 5,000 UNITS/ML VIAL SQ SCH ×2 (08:45→20:16)
[2019-04-08] MEDS: LOSARTAN POTASSIUM 25 MG TABLET PO SCH ×2 (09:00→20:17)
[2019-04-08 09:37] VITALS: BP 91/51
[2019-04-08] MEDS: GLIMEPIRIDE 2 MG TABLET PO SCH ×2 (09:54→18:02)
[2019-04-08] MEDS: METHOCARBAMOL 750 MG TABLET PO PRN (09:54)
--- NOTE | 2019-04-08 09:56 | NUR ---
Received patient sleeping in bed. not in distress. BP-85/48 at 8am, encourage fluid intake and given. MD Gusman notified. At 9am BP- 91/51. asymptomatic. no complaint of pain/discomfort. ordered UA/CS-collected. awaiting result. Patient continue pain management routine and muscle relaxant if needed. will continue monitor
[2019-04-08 10:30] LABS: *BILIRUBIN,URIN NEGATIVE (NEGATIVE); *BLOOD, URINE 3+ (NEGATIVE); *CLARITY,URINE CLOUDY (CLEAR); *COLOR,URINE YELLOW (YELLOW); *KETONES,URINE NEGATIVE (NEGATIVE); LEUKOCYTE ESTERASE ,URINE 2+ (NEGATIVE); NITRITE, URINE NEGATIVE (NEGATIVE); UGLUCOSE NEGATIVE (NEGATIVE)
[2019-04-08 10:37] LABS: RBC,URINE TNTC /HPF (0-3)
[2019-04-08 10:39] LABS: BACTERIA,URINE MANY /HPF (NONE SEEN); WBC,URINE 50-80 /HPF (0-3)
[2019-04-08 10:40] LABS: SQUAMOUS EPITHELIAL CELL,UR FEW /HPF (NONE SEEN)
[2019-04-08 10:41] LABS: YEAST,URINE MODERATE /HPF (NONE SEEN)
[2019-04-08] MEDS: ONDANSETRON ODT 4 MG TAB.RAPDIS SL PRN (11:03)
--- NOTE | 2019-04-08 16:07 | NUR ---
INTERDISCIPLINARY TEAM CONFERENCE
[2019-04-08 16:08] VITALS: BP 121/85
[2019-04-08] MEDS: BISACODYL 5 MG TABLET.DR PO PRN (16:26)
--- NOTE | 2019-04-08 17:52 | NUR ---
MD OGDEN CHANGE ROBAXIN 750MG TO ZANAFLEX 2MG EVERY 8 HOURS FOR MUSCLE SPASM PRN.
--- NOTE | 2019-04-08 18:18 | NUR ---
PATIENT LEFT HAND SWELLING, APPLIED ICE PACK. MD AWARE. WILL CONTINUE MONITOR
--- NOTE | 2019-04-08 19:40 | NUR ---
Sleeping during initial rounds. Not in distress. Safety measure and fall precaution maintained.Continue care as planned.
[2019-04-08] MEDS: GABAPENTIN 100 MG CAPSULE PO SCH (20:15)
[2019-04-08] MEDS: MONTELUKAST SODIUM 10 MG TABLET PO SCH (20:15)
[2019-04-08 20:33] VITALS: BP 103/50
[2019-04-08] MEDS: TIZANIDINE HCL 4 MG TABLET PO SCH (21:19)
[2019-04-08] MEDS: HYDROCODONE/APAP 5-325MG TABLET PO PRN (22:28)
--- NOTE | 2019-04-08 22:30 | NUR ---
Screaming, complaining of right foot pain, medicated as needed and ordered. Repositioned for comfort. Will monitor.
[2019-04-09 04:57] VITALS: BP 105/42
--- NOTE | 2019-04-09 05:30 | NUR ---
Shift End Report: VS stable. Medicated once for pain with relief. No further complaint presented but scream when touched and repositioned. Made comfortable at all times. No significant event reported all night. Continue current rehab plan of care.
[2019-04-09] MEDS: PANTOPRAZOLE SODIUM 40 MG TABLET.DR PO SCH (06:33)
[2019-04-09] MEDS: TIZANIDINE HCL 4 MG TABLET PO SCH ×3 (06:33→21:29)
[2019-04-09 06:35] LABS: BASOPHILS % (AUTO) 0.6 % (0.0-2.0); EOSINOPHILS # (AUTO) 0.2 K/uL (0.0-0.7); EOSINOPHILS % (AUTO) 2.3 % (0.0-7.0); HEMATOCRIT 29.1 % (31.2-41.9); HEMOGLOBIN 9.9 g/dL (10.9-14.3); LYMPHOCYTES % (AUTO) 24.6 % (20.5-51.5); MEAN CORPUSCULAR HEMOGLOBIN 32.6 uug (24.7-32.8); MEAN CORPUSCULAR HGB CONC 34 g/dL (32.3-35.6); MEAN CORPUSCULAR VOLUME 95.7 fL (75.5-95.3); MONOCYTES % (AUTO) 11.8 % (0.0-11.0); NEUTROPHILS % (AUTO) 60.7 % (38.5-71.5); PLATELET COUNT (AUTO) 422 K/uL (179-408); RED BLOOD CELL COUNT(AUTO) 3.04 MIL/uL (3.63-4.92); WHITE BLOOD COUNT (AUTO) 8.2 K/uL (3.8-11.8)
[2019-04-09 06:51] LABS: THYROID STIMULATING HORMONE 4.239 mIU/mL (0.358-3.740)
[2019-04-09 06:53] LABS: IRON, SERUM 50 ug/dL (50-175)
[2019-04-09 07:13] LABS: ALANINE AMINOTRANSFERASE 28 U/L (14-59); ALKALINE PHOSPHATASE 79 U/L (50-136); ASPARTATE AMINOTRANSFERASE 20 U/L (15-37); BILIRUBIN,TOTAL 0.4 mg/dL (0.2-1.0); CARBON DIOXIDE 31 mmol/L (21-32); CHLORIDE 96 mmol/L (98-107); CHOLESTEROL 117 mg/dL (<200); CREATININE 1.5 mg/dL (0.6-1.3); GLUCOSE 56 mg/dL (74-106); HDL CHOLESTEROL 50 mg/dL (40-60); MAGNESIUM 1.7 mg/dL (1.8-2.4); PHOSPHOROUS 4.7 mg/dL (2.5-4.9); POTASSIUM 4.3 mmol/L (3.5-5.1); TOTAL PROTEIN, SERUM 6.5 g/dL (6.4-8.2); TRIGLYCERIDES 88 MG/DL (30-150); UREA NITROGEN, BLOOD 39 mg/dL (7-18)
--- NOTE | 2019-04-09 07:39 | NUR ---
Patient noted resting in bed with eyes closed, no complaints of pain at this time, no signs of distress noted, call light in reach, bed locked and in lowest position, all needs met at this time
[2019-04-09 08:00] VITALS: BP 83/41
[2019-04-09] MEDS ORDERED: MEGESTROL ACETATE 400 MG/10 ML LIQUID UDC PO SCH (09:00)
[2019-04-09] MEDS: LOSARTAN POTASSIUM 25 MG TABLET PO SCH ×2 (09:00→20:14)
[2019-04-09] MEDS: HYDROCHLOROTHIAZIDE 12.5 MG CAPSULE PO SCH (09:00)
[2019-04-09] MEDS: HEPARIN SODIUM,PORCINE 5,000 UNITS/ML VIAL SQ SCH ×2 (09:03→20:16)
[2019-04-09] MEDS: ESCITALOPRAM OXALATE 10 MG TABLET PO SCH (09:12)
[2019-04-09] MEDS: LINAGLIPTIN 5 MG TABLET PO SCH (09:12)
[2019-04-09] MEDS: EZETIMIBE 10 MG TABLET PO SCH (09:12)
[2019-04-09] MEDS: GLIMEPIRIDE 2 MG TABLET PO SCH ×2 (09:13→17:37)
[2019-04-09] MEDS: DOCUSATE SODIUM 100 MG CAPSULE PO SCH ×2 (09:13→17:37)
[2019-04-09] MEDS: FLUTICASONE/VILANTEROL 1 EACH BLST.W.DEV INH SCH (09:14)
[2019-04-09] MEDS: ASPIRIN 81 MG TAB.CHEW GT SCH (09:15)
[2019-04-09] MEDS: HYDROCODONE/APAP 5-325MG TABLET PO PRN (09:16)
[2019-04-09] MEDS ORDERED: MAGNESIUM OXIDE 400 MG TABLET PO ONE (15:00)
[2019-04-09 15:59] VITALS: BP 138/54
--- NOTE | 2019-04-09 19:41 | NUR ---
Sleeping during initial rounds. No s/s of respiratory distress. No s/s of pain/discomforts noted. F/C intact and patent draining clear jane urine. Safety measure and fall precaution maintained. Continue care as planned.
[2019-04-09 19:53] VITALS: BP 98/41
[2019-04-09] MEDS: MONTELUKAST SODIUM 10 MG TABLET PO SCH (20:13)
[2019-04-09] MEDS: GABAPENTIN 100 MG CAPSULE PO SCH (20:13)
[2019-04-09] MEDS ORDERED: CEphaleXIN 500 MG CAPSULE ONE (22:08)
[2019-04-09] MEDS: CEphaleXIN 500 MG CAPSULE PO SCH (22:12)
--- NOTE | 2019-04-09 22:21 | NUR ---
Started on Keflex antibiotic as ordered for UTI. Will monitor possible adverse reaction.
[2019-04-10] MEDS: CEphaleXIN 500 MG CAPSULE PO SCH (05:34)
[2019-04-10] MEDS: PANTOPRAZOLE SODIUM 40 MG TABLET.DR PO SCH (05:34)
[2019-04-10] MEDS: TIZANIDINE HCL 4 MG TABLET PO SCH ×3 (05:34→21:32)
--- NOTE | 2019-04-10 06:59 | NUR ---
Shift End Report: Slept good. VS stable. Complaint of pain/discomfort every time turned and repositioned. No episode of screaming/cursing. All needs attended and met. No s/s of adverse reaction noted from Keflex antibiotics. Continue current rehab plan of care.
--- NOTE | 2019-04-10 07:52 | NUR ---
Patient noted noted resting in bed with eyes closed, no facial cues of pain of pain, no signs of distress noted, call light in reach, bed locked and in lowest position, all needs met
[2019-04-10 08:00] VITALS: BP 98/44
[2019-04-10] MEDS: HEPARIN SODIUM,PORCINE 5,000 UNITS/ML VIAL SQ SCH ×2 (08:51→20:17)
[2019-04-10] MEDS: ESCITALOPRAM OXALATE 10 MG TABLET PO SCH (08:54)
[2019-04-10] MEDS: LINAGLIPTIN 5 MG TABLET PO SCH (08:54)
[2019-04-10] MEDS: LOSARTAN POTASSIUM 25 MG TABLET PO SCH ×2 (09:00→20:16)
[2019-04-10] MEDS: HYDROCHLOROTHIAZIDE 12.5 MG CAPSULE PO SCH (09:00)
[2019-04-10] MEDS: DOCUSATE SODIUM 100 MG CAPSULE PO SCH ×2 (09:00→17:32)
[2019-04-10] MEDS: GLIMEPIRIDE 2 MG TABLET PO SCH ×2 (09:00→17:32)
[2019-04-10] MEDS: ASPIRIN 81 MG TAB.CHEW PO SCH (09:01)
[2019-04-10] MEDS: FLUTICASONE/VILANTEROL 1 EACH BLST.W.DEV INH SCH (09:01)
[2019-04-10] MEDS: HYDROCODONE/APAP 5-325MG TABLET PO PRN ×2 (11:12→18:48)
[2019-04-10] MEDS: CEphaleXIN 250 MG CAPSULE PO SCH ×2 (13:09→21:32)
[2019-04-10 16:56] VITALS: BP 86/38
--- NOTE | 2019-04-10 18:53 | NUR ---
patient noted banging call light on bed side table and bed rails, patient encouraged not bang call light against bed rails and bedside table
[2019-04-10 19:23] VITALS: BP 121/66
--- NOTE | 2019-04-10 19:35 | NUR ---
Awake in bed, brother at bedside. Patient requesting to be repositioned and fix head at this time. Denies pain but screamed when touched and repositioned. Instructed patient not to scream but she claimed she can not help it. Safety measure and fall precaution maintained. Continue care as planned.
--- NOTE | 2019-04-10 20:09 | NUR ---
Patient been calling constantly. From the start of shift, this is the 4th time she called to fix her head and reposition her. When asked if she is have something for us to do, she'll answer and said "no Im Ok".
[2019-04-10] MEDS: GABAPENTIN 100 MG CAPSULE PO SCH (20:16)
[2019-04-10] MEDS: MONTELUKAST SODIUM 10 MG TABLET PO SCH (20:16)
[2019-04-10] MEDS: BISACODYL 5 MG TABLET.DR PO PRN (23:09)
[2019-04-11] MEDS: HYDROCODONE/APAP 5-325MG TABLET PO PRN ×3 (00:35→21:05)
[2019-04-11 05:05] VITALS: BP 121/69
[2019-04-11] MEDS: CEphaleXIN 250 MG CAPSULE PO SCH ×3 (05:55→21:07)
[2019-04-11] MEDS: TIZANIDINE HCL 4 MG TABLET PO SCH ×3 (05:55→21:04)
[2019-04-11] MEDS: PANTOPRAZOLE SODIUM 40 MG TABLET.DR PO SCH (05:55)
--- NOTE | 2019-04-11 06:26 | NUR ---
Shift End Report: VS stable. Patient very needy, constantly calling for repositioning almost every 10-30 minutes. Very inpatient and demanding. F/c intact and patent with adequate amount of cloudy yellow urine output. Continue on antibiotics for UTI as ordered without s/s of adverse reaction noted. Encouraged increase oral fluid intake as tolerated. All needs attended and met. No significant event reported all night. Continue care as planned.
[2019-04-11 08:00] VITALS: BP 102/57
[2019-04-11] MEDS: DOCUSATE SODIUM 100 MG CAPSULE PO SCH ×2 (08:29→17:08)
[2019-04-11] MEDS: ASPIRIN 81 MG TAB.CHEW PO SCH (08:30)
[2019-04-11] MEDS: ESCITALOPRAM OXALATE 10 MG TABLET PO SCH (08:30)
[2019-04-11] MEDS: GLIMEPIRIDE 2 MG TABLET PO SCH (08:30)
[2019-04-11] MEDS: FLUTICASONE/VILANTEROL 1 EACH BLST.W.DEV INH SCH (08:31)
[2019-04-11] MEDS: LINAGLIPTIN 5 MG TABLET PO SCH (08:32)
[2019-04-11] MEDS: LOSARTAN POTASSIUM 25 MG TABLET PO SCH ×2 (08:36→21:06)
[2019-04-11] MEDS: HYDROCHLOROTHIAZIDE 12.5 MG CAPSULE PO SCH (08:36)
[2019-04-11] MEDS: HEPARIN SODIUM,PORCINE 5,000 UNITS/ML VIAL SQ SCH ×2 (08:38→21:09)
--- NOTE | 2019-04-11 08:40 | NUR ---
Patient awake, alert, not in any form of distress, on room air, sitting up on bed, done eating breakfast, able to make needs known. Patient denies any pain or discomfort at this time. Due medications administered and tolerated well. Assisted with her needs promptly. Call light and frequently used items placed within reach. With olivo catheter intact and patent, draining clear yellow urine. Surgical incision site on posterior neck noted to be well coaptated, dry with no signs of infection.
[2019-04-11 16:55] VITALS: BP 119/67
[2019-04-11 20:00] VITALS: BP 115/58
[2019-04-11] MEDS: MONTELUKAST SODIUM 10 MG TABLET PO SCH (21:05)
[2019-04-11] MEDS: GABAPENTIN 100 MG CAPSULE PO SCH (21:07)
[2019-04-12 04:00] VITALS: BP 106/49
[2019-04-12] MEDS: HYDROCODONE/APAP 5-325MG TABLET PO PRN ×2 (04:07→17:10)
[2019-04-12] MEDS: PANTOPRAZOLE SODIUM 40 MG TABLET.DR PO SCH (06:31)
[2019-04-12] MEDS: TIZANIDINE HCL 4 MG TABLET PO SCH ×3 (06:31→21:08)
[2019-04-12] MEDS: CEphaleXIN 250 MG CAPSULE PO SCH (06:31)
--- NOTE | 2019-04-12 06:59 | NUR ---
No acute events overnight, pt able to sleep intermittently during shift. Pt ready for MD's appointment. will get early breakfast
[2019-04-12 07:37] LABS: BILIRUBIN,TOTAL 0.2 mg/dL (0.2-1.0); CREATININE 1.1 mg/dL (0.6-1.3); MAGNESIUM 1.7 mg/dL (1.8-2.4); PHOSPHOROUS 4.5 mg/dL (2.5-4.9); POTASSIUM 4.3 mmol/L (3.5-5.1); TOTAL PROTEIN, SERUM 6.7 g/dL (6.4-8.2)
[2019-04-12 07:40] LABS: BASOPHILS % (AUTO) 0.6 % (0.0-2.0); EOSINOPHILS # (AUTO) 0.2 K/uL (0.0-0.7); EOSINOPHILS % (AUTO) 2.4 % (0.0-7.0); HEMATOCRIT 29.6 % (31.2-41.9); HEMOGLOBIN 10.1 g/dL (10.9-14.3); LYMPHOCYTES # (AUTO) 1.3 K/uL (20.0-40.0); LYMPHOCYTES % (AUTO) 19.5 % (20.5-51.5); MEAN CORPUSCULAR HEMOGLOBIN 32.8 uug (24.7-32.8); MEAN CORPUSCULAR HGB CONC 34 g/dL (32.3-35.6); MEAN CORPUSCULAR VOLUME 95.8 fL (75.5-95.3); MONOCYTES # (AUTO) 0.7 K/uL (2.0-10.0); NEUTROPHILS # (AUTO) 4.6 K/uL (1.8-8.9); NEUTROPHILS % (AUTO) 67.5 % (38.5-71.5); PLATELET COUNT (AUTO) 346 K/uL (179-408); RED BLOOD CELL COUNT(AUTO) 3.09 MIL/uL (3.63-4.92); WHITE BLOOD COUNT (AUTO) 6.9 K/uL (3.8-11.8)
[2019-04-12] MEDS: DOCUSATE SODIUM 100 MG CAPSULE PO SCH ×2 (08:05→17:08)
[2019-04-12] MEDS: FLUTICASONE/VILANTEROL 1 EACH BLST.W.DEV INH SCH (08:05)
[2019-04-12] MEDS: ASPIRIN 81 MG TAB.CHEW PO SCH (08:05)
[2019-04-12] MEDS: ESCITALOPRAM OXALATE 10 MG TABLET PO SCH (08:05)
[2019-04-12] MEDS: GLIMEPIRIDE 2 MG TABLET PO SCH (08:05)
[2019-04-12] MEDS: LINAGLIPTIN 5 MG TABLET PO SCH (08:05)
[2019-04-12] MEDS: HYDROCHLOROTHIAZIDE 12.5 MG CAPSULE PO SCH (08:06)
[2019-04-12] MEDS: LOSARTAN POTASSIUM 25 MG TABLET PO SCH ×2 (08:06→20:43)
[2019-04-12] MEDS: HEPARIN SODIUM,PORCINE 5,000 UNITS/ML VIAL SQ SCH ×3 (08:07→20:50)
--- NOTE | 2019-04-12 08:38 | NUR ---
PATIENT WENT OUT TO HER APT WITH SURGEON, VIA AMBULANCE, STABEL CONDITION BLOOD PRESSURE 91/45, SYMPTOMATIC, ALERT, ORIENTED X3, VERBALLY RESPONSIVE, NO SOB, RESP EVEN NONLABORED,SKIN WARM AND DRY TO TOUCH, BACA CATHETER INTACT, DRAINING GOOD AMOUNT OF CLOUDY URINE, INCREASED PO FLUIDS. NO DISTRESS NOTED AT THIS TIME, MD DR OGDEN MADE AWARE.
[2019-04-12 09:15] VITALS: BP 80/41
[2019-04-12] MEDS ORDERED: CEphaleXIN 250 MG CAPSULE PO ONE (09:30)
[2019-04-12] MEDS ORDERED: MAGNESIUM OXIDE 400 MG TABLET PO ONE (12:00)
--- NOTE | 2019-04-12 13:25 | NUR ---
PATIENT CAME BACK FROM APT, NO DISTRESS NOTED, CONTINUE WITH HEPARIN ORDERED
[2019-04-12 16:05] VITALS: BP 117/62
[2019-04-12] MEDS: MIRALAX 17 GM POWD.PACK PO SCH (17:04)
--- NOTE | 2019-04-12 17:07 | NUR ---
BACA CATHETER DCD, ORDER GIVEN BY DR COOK, CONTINUE TO MONITOR FOR VOIDING
[2019-04-12 20:26] VITALS: BP 117/53
[2019-04-12] MEDS: GABAPENTIN 100 MG CAPSULE PO SCH (20:41)
[2019-04-12] MEDS: CEphaleXIN 500 MG CAPSULE PO SCH (20:41)
[2019-04-12] MEDS: MONTELUKAST SODIUM 10 MG TABLET PO SCH (20:41)
--- NOTE | 2019-04-12 21:23 | NUR ---
awake alert and oriented x2-3. Patient very needy. Screams most of the times. Due meds given as ordered. Repositioned q2 hrs and as needed. Left side flaccid. Incontinent of bowel and bladder. BM noted this shift. Sykes d'jacinda today. Will monitor for voiding. Encouraged fluids. Kept comfortable. VSS. No acute distress.
[2019-04-13 04:00] VITALS: BP 121/66
[2019-04-13] MEDS: PANTOPRAZOLE SODIUM 40 MG TABLET.DR PO SCH (06:13)
[2019-04-13] MEDS: TIZANIDINE HCL 4 MG TABLET PO SCH ×3 (06:13→21:43)
[2019-04-13 07:46] VITALS: BP 113/46
[2019-04-13] MEDS: LOSARTAN POTASSIUM 25 MG TABLET PO SCH ×2 (09:02→20:56)
[2019-04-13] MEDS: ESCITALOPRAM OXALATE 10 MG TABLET PO SCH (09:03)
[2019-04-13] MEDS: ASPIRIN 81 MG TAB.CHEW PO SCH (09:04)
[2019-04-13] MEDS: HYDROCHLOROTHIAZIDE 12.5 MG CAPSULE PO SCH (09:04)
[2019-04-13] MEDS: CEphaleXIN 500 MG CAPSULE PO SCH ×2 (09:04→20:58)
[2019-04-13] MEDS: DOCUSATE SODIUM 100 MG CAPSULE PO SCH ×2 (09:04→16:35)
[2019-04-13] MEDS: LINAGLIPTIN 5 MG TABLET PO SCH (09:04)
[2019-04-13] MEDS: GLIMEPIRIDE 2 MG TABLET PO SCH (09:04)
[2019-04-13] MEDS: HEPARIN SODIUM,PORCINE 5,000 UNITS/ML VIAL SQ SCH ×2 (09:06→21:04)
[2019-04-13] MEDS: FLUTICASONE/VILANTEROL 1 EACH BLST.W.DEV INH SCH (10:00)
[2019-04-13] MEDS: HYDROCODONE/APAP 5-325MG TABLET PO PRN ×2 (10:17→17:38)
[2019-04-13 15:11] VITALS: BP 94/50
--- NOTE | 2019-04-13 15:30 | NUR ---
Pt received, assessed, no acute distress, pain reported during therapy, PRN pain medication administered as ordered, proven effective. Pt compliant with medications and therapies as offered. Posterior neck surgical site well approximated, healing well slightly pink from recent staple removal. Pt left side flaccid, repositioned for comfort Q2hr if not more frequently. All needs attended to promptly this shift. Pt seen by Md, no new orders. Bed alarm on, locked in lowest position and side rails up. VSS. Call light and personal items placed within reach. Will continue to monitor.
--- NOTE | 2019-04-13 18:25 | NUR ---
Pt AOx1, to self only. Pt continues to yell out, while simultaneously using call light. Pt has been repositioned frequently at times with 5 min in between due to requests, PRN Hamilton 5 administered per MD orders, ice pack applied to back of neck. Will continue to monitor for effectiveness. Dr. Cash aware. No new orders at this time will continue to monitor and follow up.
[2019-04-13] MEDS ORDERED: OXYCODONE HCL 5 MG TABLET PO ONE (19:00)
[2019-04-13] MEDS: GABAPENTIN 100 MG CAPSULE PO SCH (20:58)
[2019-04-13] MEDS: MONTELUKAST SODIUM 10 MG TABLET PO SCH (20:58)
[2019-04-13] MEDS ORDERED: LORAZEPAM 0.5 MG TABLET PO STA (21:13)
[2019-04-13] MEDS ORDERED: LORAZEPAM 0.5 MG TABLET ONE (22:35)
--- NOTE | 2019-04-14 00:24 | NUR ---
awake alert and oriented x1-2 patient been repositioned q1hrs. patient been yelling, medicated for pain as ordered. Tolerated po meds well. Dr Cash aware of patient's behavior. Ativan 0.5 mg given. Will monitor patient. Incontinent of bowel and bladder. Kept clean and dry. VSS.
[2019-04-14 05:04] VITALS: BP 100/56
--- NOTE | 2019-04-14 05:26 | NUR ---
End of shift report: Slept well most of the shift. No acute distress noted. Repositioned for comfort. Turned q2hrs. HOB up @ all times. Incontinent of bowel and bladder. Kept clean and dry. Needs attended. VSS. Will monitor patient. Siderails up for safety.
[2019-04-14] MEDS: PANTOPRAZOLE SODIUM 40 MG TABLET.DR PO SCH (06:17)
[2019-04-14] MEDS: TIZANIDINE HCL 4 MG TABLET PO SCH ×3 (06:17→21:01)
[2019-04-14 07:49] VITALS: BP 110/47
[2019-04-14] MEDS: LINAGLIPTIN 5 MG TABLET PO SCH (08:48)
[2019-04-14] MEDS: CEphaleXIN 500 MG CAPSULE PO SCH ×2 (08:48→20:34)
[2019-04-14] MEDS: DOCUSATE SODIUM 100 MG CAPSULE PO SCH ×2 (08:49→17:43)
[2019-04-14] MEDS: ESCITALOPRAM OXALATE 10 MG TABLET PO SCH (08:49)
[2019-04-14] MEDS: ASPIRIN 81 MG TAB.CHEW PO SCH (08:49)
[2019-04-14] MEDS: LOSARTAN POTASSIUM 25 MG TABLET PO SCH ×2 (08:49→20:33)
[2019-04-14] MEDS: HYDROCHLOROTHIAZIDE 12.5 MG CAPSULE PO SCH (08:49)
[2019-04-14] MEDS: GLIMEPIRIDE 2 MG TABLET PO SCH (08:49)
[2019-04-14] MEDS: FLUTICASONE/VILANTEROL 1 EACH BLST.W.DEV INH SCH (08:50)
[2019-04-14] MEDS: HEPARIN SODIUM,PORCINE 5,000 UNITS/ML VIAL SQ SCH ×2 (08:53→20:36)
[2019-04-14 14:41] VITALS: BP 101/43
[2019-04-14] MEDS: LORAZEPAM 0.5 MG TABLET PO PRN (18:45)
--- NOTE | 2019-04-14 18:52 | NUR ---
Patient noted screaming and very anxious Ativan 0.25mg PO QDPRN administered and tolerated.
--- NOTE | 2019-04-14 18:54 | NUR ---
Patient is AAO x 2-3; able to express needs. NO acute distress or SOB noted. Vital signs taken and stable for patient. Due meds administered and tolerated well. Pt. on PT/OT therapy. Repositioned for comfort throughout shift and as needed. Patient noted screaming at times during shift, when asked if in pain, patient denies any pain. Skin kept clean and dry. Patient with one person max assist and BRP for care. Needs attended and met, monitored closely, safety measures in place, call light left at bed side and will continue with care.
[2019-04-14 20:27] VITALS: BP 118/67
[2019-04-14] MEDS: MONTELUKAST SODIUM 10 MG TABLET PO SCH (20:33)
[2019-04-14] MEDS: GABAPENTIN 100 MG CAPSULE PO SCH (20:34)
[2019-04-14] MEDS: HYDROCODONE/APAP 5-325MG TABLET PO PRN (22:27)
--- NOTE | 2019-04-15 04:00 | NUR ---
Received patient in bed. AAO x2, Only by name and place, very confused. Not in acute distress or SOB. On room air. Farsi speaking, but can communicate in Maldivian. Able to make needs known. Complained of pain, Narco 5-325 mg administered and effective. Patient noted screaming at the first few hours of starting shift. Physical assessment done. All due medication given and well tolerated. All needs attended promptly. Repositioned and turned to make her comfortable and as needed. Fall prevention observed. Safety measures maintained. Bed in low and lock position, side rails up x2 for safety. Call light and frequently used items within reach. Continue to monitor and will endorse to oncoming nurse accordingly.
[2019-04-15] MEDS: PANTOPRAZOLE SODIUM 40 MG TABLET.DR PO SCH (06:12)
[2019-04-15] MEDS: TIZANIDINE HCL 4 MG TABLET PO SCH ×3 (06:12→21:09)
[2019-04-15] MEDS: DOCUSATE SODIUM 100 MG CAPSULE PO SCH ×2 (08:40→17:37)
[2019-04-15] MEDS: ESCITALOPRAM OXALATE 10 MG TABLET PO SCH (08:40)
[2019-04-15] MEDS: HYDROCODONE/APAP 5-325MG TABLET PO PRN (08:41)
[2019-04-15] MEDS: GLIMEPIRIDE 2 MG TABLET PO SCH (08:42)
[2019-04-15] MEDS: ASPIRIN 81 MG TAB.CHEW PO SCH (08:42)
[2019-04-15] MEDS: FLUTICASONE/VILANTEROL 1 EACH BLST.W.DEV INH SCH (08:43)
[2019-04-15] MEDS: LOSARTAN POTASSIUM 25 MG TABLET PO SCH ×2 (08:45→21:00)
[2019-04-15] MEDS: CEphaleXIN 500 MG CAPSULE PO SCH ×2 (08:45→21:08)
[2019-04-15] MEDS: HYDROCHLOROTHIAZIDE 12.5 MG CAPSULE PO SCH (08:45)
[2019-04-15] MEDS: LINAGLIPTIN 5 MG TABLET PO SCH (08:46)
[2019-04-15] MEDS: HEPARIN SODIUM,PORCINE 5,000 UNITS/ML VIAL SQ SCH ×2 (08:47→21:09)
--- NOTE | 2019-04-15 11:05 | NUR ---
INTERDISCIPLINARY TEAM CONFERENCE
[2019-04-15] MEDS: QUETIAPINE FUMARATE 25 MG TABLET PO SCH ×2 (15:29→21:09)
[2019-04-15] MEDS: MIRALAX 17 GM POWD.PACK PO SCH (15:30)
--- NOTE | 2019-04-15 15:35 | NUR ---
PATIENT CONTINUE TO YELL, SCREAM CONSTANTLY, BANGING ON TABLE, EVEN PATIENT NEED MET FREQUENTLY, TURNED AND REPOSITIONED EVERY 2 HOURS, KEPT CLEAN AND DRY, ORDER GIVEN BY DR OGDEN FOR SEROQUEL 12.5MG BID, AND PSYCH EVAL, CONTINUE TO MONITOR
--- NOTE | 2019-04-15 15:57 | NUR ---
PATIENT TURNED AND REPOSITIONED AT EVERY 2 HOURS, SKIN INTACT, NO SKIN ISSUES NOTED AT THIS TIME, BOTH HEELS ARE FLOATED ALL THE TIME, KEPT SKIN HYDRATED WITH LOTION, AND ENCOURAGED TO DRINK WATER.CONTINUE TO MONITOR
--- NOTE | 2019-04-15 16:10 | NUR ---
DR TRONCOSO IS AWARE ABOUT PSYCH EVAL ORDER.
--- NOTE | 2019-04-15 17:51 | NUR ---
PATIENT LAYING IN BED, REPOSITIONED FREQENTLY, SKIN INTACT, HEELS ARE FLOATING, SKIN INSPECTED AT COCCYX, SACRAL, AND HEELS, NO SIGNS AND SYMPTOMS OF SKIN ISSUES NOTED, CONTINUE WITH NURSING INTERVENTIONS TO PREVENT SKIN BREAKDOWN, SUCH REPOSITIONING, ENCOURAGE FLUIDS INTAKE, INSPECT SKIN EVERY SHIFT.
[2019-04-15 17:55] VITALS: BP 108/52
--- NOTE | 2019-04-15 17:56 | NUR ---
PATIENT VOIDED X5, NO DISTENDED BLADDER NOTED
--- NOTE | 2019-04-15 20:12 | NUR ---
RECEIVED PATIENT IN BED, ASLEEP BUT EASILY AROUSED. NO COMPLAINTS OF PAIN AT THIS TIME. PATIENT VERBALIZED SHE IS COMFORTABLE AT THIS TIME. NO EPISODES OF SCREAMING AT THIS TIME. WILL CONTINUE TO MONITOR PATIENT AND BEHAVIOR. WILL CONTINUE TO OBSERVE FALL AND SAFETY PRECAUTIONS. LEFT PATIENT WARM, DRY, AND COMFORTABLE. ALL NEEDS ATTENDED.
[2019-04-15 20:30] VITALS: BP 104/65
[2019-04-15] MEDS: GABAPENTIN 100 MG CAPSULE PO SCH (21:08)
[2019-04-15] MEDS: MONTELUKAST SODIUM 10 MG TABLET PO SCH (21:08)
--- NOTE | 2019-04-16 05:05 | NUR ---
PATIENT IS IN BED, ALERT AND VERBALLY RESPONSIVE. AFEBRILE. NO RESPIRATORY DISTRESS AT THIS TIME. PATIENT SLEPT WELL THROUGH THE NIGHT. WOKE UP AT 0430 BUT ABLE TO FALL BACK ASLEEP UPON REPOSITIONING. KEPT PATIENT WARM, DRY, AND COMFORTABLE. PATIENT TURNED AND REPOSITIONED EVERY 2 HOURS AND REQUESTED. PATIENT'S BILATERAL HEELS OFFLOADED THROUGH THE NIGHT. NO NEW SKIN BREAKDOWN OBSERVED. FALL AND SAFETY PRECAUTIONS OBSERVED. ALL NEEDS ATTENDED.
[2019-04-16 05:30] VITALS: BP 128/52
[2019-04-16] MEDS: TIZANIDINE HCL 4 MG TABLET PO SCH ×3 (06:09→21:26)
[2019-04-16] MEDS: PANTOPRAZOLE SODIUM 40 MG TABLET.DR PO SCH (06:09)
[2019-04-16] MEDS: GLIMEPIRIDE 2 MG TABLET PO SCH (08:02)
[2019-04-16] MEDS: ASPIRIN 81 MG TAB.CHEW PO SCH (08:03)
[2019-04-16] MEDS: ESCITALOPRAM OXALATE 10 MG TABLET PO SCH (08:03)
[2019-04-16] MEDS: DOCUSATE SODIUM 100 MG CAPSULE PO SCH ×2 (08:03→17:31)
[2019-04-16] MEDS: QUETIAPINE FUMARATE 25 MG TABLET PO SCH ×2 (08:04→20:12)
[2019-04-16] MEDS: HEPARIN SODIUM,PORCINE 5,000 UNITS/ML VIAL SQ SCH ×2 (08:05→20:10)
[2019-04-16 08:08] VITALS: BP 113/64
[2019-04-16] MEDS: CEphaleXIN 500 MG CAPSULE PO SCH ×2 (08:09→20:13)
[2019-04-16] MEDS: LINAGLIPTIN 5 MG TABLET PO SCH (08:09)
[2019-04-16] MEDS: FLUTICASONE/VILANTEROL 1 EACH BLST.W.DEV INH SCH (08:10)
[2019-04-16] MEDS: LOSARTAN POTASSIUM 25 MG TABLET PO SCH ×2 (09:00→20:12)
[2019-04-16] MEDS: HYDROCHLOROTHIAZIDE 12.5 MG CAPSULE PO SCH (09:00)
--- NOTE | 2019-04-16 09:00 | NUR ---
Patient awake, alert, not in any form of distress, on room air. She denies any pain or discomfort at this time. Patient had breakfast with INSURANCE CLAIMS CLERK assistance and tolerated well. Due medications administered and tolerated well. Patient turned and reposition, kept clean and dry. Call light and frequently used items placed within reach. Safety measures maintained.
--- NOTE | 2019-04-16 13:13 | NUR ---
Patient sitting up on the wheelchair in the rehab gym doing therapeutic exercises with physical therapist. No complain of any discomfort at this time. Patient seen by Dr. Cole with no new order.
[2019-04-16 14:24] VITALS: BP 131/68
--- NOTE | 2019-04-16 19:15 | NUR ---
RECEIVED PATIENT IN BED, ASLEEP BUT EASILY AROUSED. NO COMPLAINTS OF PAIN AT THIS TIME. NO FACIAL GRIMACING OBSERVED. ON ROOM AIR, NO RESPIRATORY OR ACUTE DISTRESS. ON AIR MATTRESS FOR SKIN MANAGEMENT. NO EPISODES OF SCREAMING AT THIS TIME. WILL CONTINUE TO MONITOR PATIENT AND BEHAVIOR. WILL CONTINUE TO OBSERVE FALL AND SAFETY PRECAUTIONS. LEFT PATIENT WARM, DRY, AND COMFORTABLE. ALL NEEDS ATTENDED.
[2019-04-16 20:00] VITALS: BP 130/67
[2019-04-16] MEDS: GABAPENTIN 100 MG CAPSULE PO SCH (20:12)
[2019-04-16] MEDS: MONTELUKAST SODIUM 10 MG TABLET PO SCH (20:12)
--- NOTE | 2019-04-16 21:30 | NUR ---
PATIENT NOTED WITH EPISODES OF REPEATEDLY SCREAMING/ YELLING. REPOSITIONED PATIENT REQUESTED AND PROVIDED DIM AND QUIET ENVIRONMENT. AFTER REPOSITIONING PATIENT, PATIENT SLEPT. WILL CONTINUE TO MONITOR PATIENT.
[2019-04-17] MEDS: HYDROCODONE/APAP 5-325MG TABLET PO PRN (05:12)
[2019-04-17 05:57] VITALS: BP 120/72
--- NOTE | 2019-04-17 05:58 | NUR ---
PATIENT IS IN BED, INTERMITTENTLY AWAKE AND ASLEEP. PATIENT GOES BACK TO SLEEP AFTER REPOSITIONING. AFEBRILE. NO RESPIRATORY DISTRESS AT THIS TIME. KEPT PATIENT WARM, DRY, AND COMFORTABLE. PATIENT TURNED AND REPOSITIONED EVERY 2 HOURS AND REQUESTED. NO NEW SKIN BREAKDOWN OBSERVED. FALL AND SAFETY PRECAUTIONS OBSERVED. CONTINUES TO BE ON AIR MATTRESS. ALL NEEDS ATTENDED AND ANTICIPATED.
[2019-04-17] MEDS: TIZANIDINE HCL 4 MG TABLET PO SCH ×3 (06:03→22:08)
[2019-04-17] MEDS: PANTOPRAZOLE SODIUM 40 MG TABLET.DR PO SCH (06:03)
[2019-04-17 08:00] VITALS: BP 138/71
[2019-04-17] MEDS: DOCUSATE SODIUM 100 MG CAPSULE PO SCH ×2 (08:46→17:51)
[2019-04-17] MEDS: QUETIAPINE FUMARATE 25 MG TABLET PO SCH ×2 (08:46→20:40)
[2019-04-17] MEDS: ESCITALOPRAM OXALATE 10 MG TABLET PO SCH (08:47)
[2019-04-17] MEDS: LOSARTAN POTASSIUM 25 MG TABLET PO SCH ×2 (08:47→20:40)
[2019-04-17] MEDS: FLUTICASONE/VILANTEROL 1 EACH BLST.W.DEV INH SCH (08:48)
[2019-04-17] MEDS: GLIMEPIRIDE 2 MG TABLET PO SCH (08:48)
[2019-04-17] MEDS: ASPIRIN 81 MG TAB.CHEW PO SCH (08:48)
[2019-04-17] MEDS: LINAGLIPTIN 5 MG TABLET PO SCH (08:49)
[2019-04-17] MEDS: HYDROCHLOROTHIAZIDE 12.5 MG CAPSULE PO SCH (09:25)
[2019-04-17] MEDS: HEPARIN SODIUM,PORCINE 5,000 UNITS/ML VIAL SQ SCH ×2 (09:26→20:41)
[2019-04-17 16:00] VITALS: BP 109/62
--- NOTE | 2019-04-17 19:30 | NUR ---
RECEIVED PATIENT IN BED, AWAKE AND VERBALLY RESPONSIVE. NO COMPLAINTS OF PAIN AT THIS TIME. NO FACIAL GRIMACING OBSERVED. ON ROOM AIR, NO RESPIRATORY OR ACUTE DISTRESS. ON AIR MATTRESS FOR SKIN MANAGEMENT. WITH SOME EPISODES OF SCREAMING. PROVIDED DISTRACTION AND REPOSITIONING. WILL CONTINUE TO OBSERVE FALL AND SAFETY PRECAUTIONS. LEFT PATIENT WARM, DRY, AND COMFORTABLE. ALL NEEDS ATTENDED.
[2019-04-17 20:00] VITALS: BP 128/80
[2019-04-17] MEDS: GABAPENTIN 100 MG CAPSULE PO SCH (20:39)
[2019-04-17] MEDS: MONTELUKAST SODIUM 10 MG TABLET PO SCH (20:40)
[2019-04-18] MEDS: HYDROCODONE/APAP 5-325MG TABLET PO PRN ×2 (00:25→17:08)
[2019-04-18] MEDS: LORAZEPAM 0.5 MG TABLET PO PRN (01:31)
--- NOTE | 2019-04-18 05:00 | NUR ---
PATIENT IN BED, ASLEEP AT THIS TIME. HAD INTERMITTENT SLEEP THROUGHOUT THE NIGHT. PATIENT RECEIVED NORCO PRN FOR PATIENT'S COMPLAINT OF PAIN AT NECK AREA. PATIENT IS ON ROOM AIR, NO RESPIRATORY OR ACUTE DISTRESS. ON AIR MATTRESS FOR SKIN MANAGEMENT. WITH EPISODES OF SCREAMING. PROVIDED DISTRACTION AND REPOSITIONING. WILL CONTINUE TO OBSERVE FALL AND SAFETY PRECAUTIONS. LEFT PATIENT WARM, DRY, AND COMFORTABLE.
[2019-04-18 05:30] VITALS: BP 94/52
[2019-04-18] MEDS: TIZANIDINE HCL 4 MG TABLET PO SCH ×3 (06:12→22:07)
[2019-04-18] MEDS: PANTOPRAZOLE SODIUM 40 MG TABLET.DR PO SCH (06:12)
[2019-04-18 08:00] VITALS: BP 117/54
--- NOTE | 2019-04-18 08:09 | NUR ---
Received pt. in bed sleeping, easy to arouse. NO acute distress noted and NO c/o pain at this time. Vital signs stable for patient, call light left at bed side, safety measures in place and will continue with care.
[2019-04-18] MEDS: HYDROCHLOROTHIAZIDE 12.5 MG CAPSULE PO SCH (09:00)
[2019-04-18] MEDS: LOSARTAN POTASSIUM 25 MG TABLET PO SCH ×2 (09:00→20:40)
[2019-04-18] MEDS: HEPARIN SODIUM,PORCINE 5,000 UNITS/ML VIAL SQ SCH (09:10)
[2019-04-18] MEDS: DOCUSATE SODIUM 100 MG CAPSULE PO SCH ×2 (09:10→17:08)
[2019-04-18] MEDS: GLIMEPIRIDE 2 MG TABLET PO SCH (09:10)
[2019-04-18] MEDS: QUETIAPINE FUMARATE 25 MG TABLET PO SCH ×2 (09:10→20:41)
[2019-04-18] MEDS: ESCITALOPRAM OXALATE 10 MG TABLET PO SCH (09:10)
[2019-04-18] MEDS: LINAGLIPTIN 5 MG TABLET PO SCH (09:13)
[2019-04-18] MEDS: FLUTICASONE/VILANTEROL 1 EACH BLST.W.DEV INH SCH (09:13)
[2019-04-18] MEDS: ASPIRIN 81 MG TAB.CHEW PO SCH (09:15)
[2019-04-18 10:10] VITALS: BP 118/57
[2019-04-18 17:02] VITALS: BP 126/60
[2019-04-18] MEDS: BISACODYL 5 MG TABLET.DR PO PRN (17:09)
--- NOTE | 2019-04-18 17:12 | NUR ---
Patient noted screaming and complaining of pain. Repositioned q 2hrs and as needed for comfort. Braddock 5/325mg 1 tab PRN administered for pain.
--- NOTE | 2019-04-18 19:25 | NUR ---
Patient is AAO 2-3, NO acute distress noted, NO SOB noted. vital signs stable for patient. Due medications administered. Patient still noted screaming during shift, repositioned frequently throughout shift as needed and for comfort. Patient with one person assist and care. Needs attended and met. Safety measures in place, call light left at bed side and will continue with care.
[2019-04-18 19:57] VITALS: BP 117/57
[2019-04-18] MEDS: MONTELUKAST SODIUM 10 MG TABLET PO SCH (20:39)
[2019-04-18] MEDS: GABAPENTIN 100 MG CAPSULE PO SCH (20:39)
[2019-04-19] MEDS: HYDROCODONE/APAP 5-325MG TABLET PO PRN ×3 (03:18→22:29)
[2019-04-19 04:57] VITALS: BP 100/56
--- NOTE | 2019-04-19 05:55 | NUR ---
Received patient in bed. AAO x2, Only by name and place, very confused. Not in acute distress or SOB. On room air. Farsi speaking, but can communicate in Slovak. Able to make needs known. Complained of pain, Narco 5-325 mg administered and effective. Patient noted screaming throughout the shift. Changed the chux multiple times and kept her clean and dry. Physical assessment done. All due medication given and well tolerated. All needs attended promptly. Repositioned and turned to make her comfortable every 2 hours and as needed. Fall prevention observed. Safety measures maintained. Bed in low and lock position, side rails up x2 for safety. Call light and frequently used items within reach. Continue to monitor and will endorse to oncoming nurse accordingly.
[2019-04-19] MEDS: TIZANIDINE HCL 4 MG TABLET PO SCH ×3 (06:51→21:18)
[2019-04-19] MEDS: PANTOPRAZOLE SODIUM 40 MG TABLET.DR PO SCH (06:51)
[2019-04-19] MEDS: ASPIRIN 81 MG TAB.CHEW PO SCH (08:30)
[2019-04-19] MEDS: DOCUSATE SODIUM 100 MG CAPSULE PO SCH ×2 (08:30→16:34)
[2019-04-19] MEDS: QUETIAPINE FUMARATE 25 MG TABLET PO SCH ×2 (08:30→20:43)
[2019-04-19] MEDS: LINAGLIPTIN 5 MG TABLET PO SCH (08:30)
[2019-04-19] MEDS: GLIMEPIRIDE 2 MG TABLET PO SCH (08:31)
[2019-04-19] MEDS: FLUTICASONE/VILANTEROL 1 EACH BLST.W.DEV INH SCH (08:32)
[2019-04-19] MEDS: LOSARTAN POTASSIUM 25 MG TABLET PO SCH ×2 (08:40→20:48)
[2019-04-19] MEDS: HYDROCHLOROTHIAZIDE 12.5 MG CAPSULE PO SCH (08:41)
[2019-04-19] MEDS: ESCITALOPRAM OXALATE 10 MG TABLET PO SCH (09:11)
[2019-04-19 11:31] VITALS: BP 98/44
--- NOTE | 2019-04-19 12:55 | NUR ---
Received patient in bed. AAO x2-3, confused. No signs of acute distress or shortness of breath. Patient is on room air with O2 saturation in high 90s. Patient is Farsi speaking, but can also communicate in North Korean. Patient noted screaming throughout the shift to be repositioned almost every 15 minutes. Patient kept clean and dry. Physical assessment done. Scheduled medications due were given and well tolerated. All needs attended promptly and effectively. Call light within reach and bed locked in lowest position with 3x side rails up and bed alarm on. Frequently used items within patient's reach. Will continue to monitor patient.
[2019-04-19 15:56] VITALS: BP 116/57
--- NOTE | 2019-04-19 18:36 | NUR ---
Received patient awake in bed in stable condition. Patient noted screaming when wants something. Continue reorient the patient to call light but still screaming at times.tolerated therapy well. Continue fall risk precaution and aspiration precaution maintained. Continue behavioral monitoring. not in distress. will continue monitor
[2019-04-19 20:00] VITALS: BP 92/62
[2019-04-19] MEDS: LORAZEPAM 0.5 MG TABLET PO PRN (20:44)
[2019-04-19] MEDS: MONTELUKAST SODIUM 10 MG TABLET PO SCH (20:45)
[2019-04-19] MEDS: GABAPENTIN 100 MG CAPSULE PO SCH (20:48)
--- NOTE | 2019-04-20 00:02 | NUR ---
awake alert and oriented x2-3 Patient been screaming at start of the shift. VSS. Shari johnson, BP 92/62. Patient moved to room 109 since the room mate 104 been complaining that patient been screaming and her couldn't sleep. Repositioned for comfort. Turned to sides. Ativan 0.5 mg given for agitation. Tolerated po meds well. Compliant with meds. Incontinent of bowel and bladder. No BM noted this shift. Will monitor patient. Needs attended. Fall precautions maintained. Siderails up for safety. No acute distress noted.
[2019-04-20] MEDS: TIZANIDINE HCL 4 MG TABLET PO SCH ×3 (05:37→21:02)
[2019-04-20 06:08] VITALS: BP 132/66
[2019-04-20] MEDS: PANTOPRAZOLE SODIUM 40 MG TABLET.DR PO SCH (06:39)
--- NOTE | 2019-04-20 07:02 | NUR ---
End of shift notes: Sleeping on and off. Screaming on and off. Repositioned for comfort. Turned q 2hrs. Pain meds given as needed. Compliant with meds. Needs attended. Fall precautions maintained. Incontinent of urine x3. Kept clean and dry. No BM this shift. Will monitor patient.
[2019-04-20 08:31] VITALS: BP 103/40
[2019-04-20] MEDS: LINAGLIPTIN 5 MG TABLET PO SCH (09:00)
[2019-04-20] MEDS: ESCITALOPRAM OXALATE 10 MG TABLET PO SCH (09:00)
[2019-04-20] MEDS: HYDROCHLOROTHIAZIDE 12.5 MG CAPSULE PO SCH (09:00)
[2019-04-20] MEDS: DOCUSATE SODIUM 100 MG CAPSULE PO SCH ×2 (09:00→16:16)
[2019-04-20] MEDS: GLIMEPIRIDE 2 MG TABLET PO SCH (09:01)
[2019-04-20] MEDS: QUETIAPINE FUMARATE 25 MG TABLET PO SCH ×2 (09:01→17:11)
[2019-04-20] MEDS: ASPIRIN 81 MG TAB.CHEW PO SCH (09:01)
[2019-04-20] MEDS: FLUTICASONE/VILANTEROL 1 EACH BLST.W.DEV INH SCH (09:02)
--- NOTE | 2019-04-20 11:00 | NUR ---
RECOMMEND LIMB PROTECTION AND MONITORING OF LEFT UPPER EXTREMITY DUE TO FREQUENT C/O PAIN THROUGHOUT THE DAY. PATIENT WITH NOTED MIN ACTIVE MOTION WITH LEFT UPPER EXTREMITY AND ENCOURAGED TO USE LIMB TOLERATED IN ORDER TO DECREASE SENSITIVITY TO TOUCH. NURSING INFORMED.
--- NOTE | 2019-04-20 15:20 | NUR ---
Receive patient awake in bed with periods of confusion. Patient noted uses call light when need something. Less screaming noted. Complaint of left arm pain noted. MD Gusman notified. ordered left hand x-ray. Less participation for therapy despite of encouragement and education. Kept comfortable in bed. Fall risk and aspiration precaution maintained. will continue monitor
[2019-04-20] MEDS: HYDROCODONE/APAP 5-325MG TABLET PO PRN (15:43)
[2019-04-20] MEDS: LORAZEPAM 0.5 MG TABLET PO PRN (17:01)
--- NOTE | 2019-04-20 17:13 | NUR ---
Around 4pm, Patient started to scream and bug the siderails while using the call light all the time. keeps asking same question. [place] PRN given, then ativan 025mg given. MD Dolan psychiatrist notified and increase dose to seroquel 12.5mg TID from BID and given. not in distress. Redirect with food, repositioning, and medication. will continue monitor
[2019-04-20 17:29] VITALS: BP 112/57
[2019-04-20 19:58] VITALS: BP 104/53
--- NOTE | 2019-04-20 20:04 | NUR ---
RECEIVED PATIENT AWAKE, ALERT, SCREAMING IN BED. CAN MAKE NEEDS KNOWN. NO COMPLAINTS OF PAIN AT THIS TIME. ATTENDED TO PATIENT AND REPOSITIONED PER PATIENT'S REQUEST. TOLERATED ACTIVITY WELL. PATIENT SATISFIED WITH REPOSITIONING AT THIS TIME AND GRATEFUL FOR CARE PROVIDED. IN NO RESPIRATORY OR ACUTE DISTRESS. LEFT PATIENT IN BED, WARM,DRY, AND COMFORTABLE. CONTINUES TO BE ON AIR MATTRESS FOR SKIN MANAGEMENT. WILL CONTINUE TO TURN AND REPOSITION PATIENT EVERY TWO HOURS OR NEEDED.
[2019-04-20] MEDS: MONTELUKAST SODIUM 10 MG TABLET PO SCH (20:34)
[2019-04-20] MEDS: GABAPENTIN 100 MG CAPSULE PO SCH (20:34)
[2019-04-21] MEDS: HYDROCODONE/APAP 5-325MG TABLET PO PRN (05:24)
[2019-04-21 05:31] VITALS: BP 113/52
--- NOTE | 2019-04-21 05:53 | NUR ---
PATIENT IN BED, ASLEEP AT THIS TIME. SLEPT INTERMITTENTLY DURING THE NIGHT. TURNED AND REPOSITIONED EVERY TWO HOURS AND WHEN PATIENT REQUESTED. KEPT PATIENT COMFORTABLE, WARM, DRY, AND CLEAN. FALL AND SAFETY PRECAUTIONS OBSERVED. ALL NEEDS ATTENDED AND ANTICIPATED.
[2019-04-21] MEDS: TIZANIDINE HCL 4 MG TABLET PO SCH ×3 (06:05→21:05)
[2019-04-21] MEDS: PANTOPRAZOLE SODIUM 40 MG TABLET.DR PO SCH (06:05)
[2019-04-21] MEDS: ASPIRIN 81 MG TAB.CHEW PO SCH (08:37)
[2019-04-21] MEDS: DOCUSATE SODIUM 100 MG CAPSULE PO SCH ×2 (08:38→16:18)
[2019-04-21] MEDS: ESCITALOPRAM OXALATE 10 MG TABLET PO SCH (08:38)
[2019-04-21] MEDS: GLIMEPIRIDE 2 MG TABLET PO SCH (08:38)
[2019-04-21] MEDS: QUETIAPINE FUMARATE 25 MG TABLET PO SCH ×3 (08:39→16:19)
[2019-04-21] MEDS: LINAGLIPTIN 5 MG TABLET PO SCH (08:39)
--- NOTE | 2019-04-21 08:40 | NUR ---
Patient awake, alert, not in any form of acute distress. Assisted patient with breakfast and tolerated well. Due medications administered and tolerated well. Call light and frequently used items placed within reach. Safety measures maintained.
[2019-04-21 08:45] VITALS: BP 97/64
[2019-04-21] MEDS: HYDROCHLOROTHIAZIDE 12.5 MG CAPSULE PO SCH (08:45)
[2019-04-21] MEDS: FLUTICASONE/VILANTEROL 1 EACH BLST.W.DEV INH SCH (08:45)
[2019-04-21 16:16] VITALS: BP 138/74
--- NOTE | 2019-04-21 18:30 | NUR ---
No acute events noted during the shift. Patient remains alert, in no distress. No complain of pain or discomfort at this time. Turned and reposition every 2 hours and as needed. Kept patient clean and dry. Needs attended to promptly. Call light and frequently used items placed within reach. Will endorse accordingly to casino shift manager nurse.
--- NOTE | 2019-04-21 19:58 | NUR ---
RECEIVED PATIENT AWAKE, ALERT AND VERBALLY RESPONSIVE. AFEBRILE. NO COMPLAINTS OF PAIN AT THIS TIME. TURNED AND REPOSITIONED PATIENT. PATIENT WITH X1 BM, BROWN SOFT STOOL. PROVIDED GOOD PERICARE. LEFT PATIENT IN BED, WARM,DRY, CLEAN, AND COMFORTABLE. CONTINUES TO BE ON AIR MATTRESS FOR SKIN MANAGEMENT. WILL CONTINUE TO TURN AND REPOSITION PATIENT EVERY TWO HOURS OR NEEDED. WILL CONTINUE TO ATTEND AND ANTICIPATE PATIENT'S NEEDS.
[2019-04-21 20:20] VITALS: BP 110/68
[2019-04-21] MEDS: MONTELUKAST SODIUM 10 MG TABLET PO SCH (20:24)
[2019-04-21] MEDS: GABAPENTIN 100 MG CAPSULE PO SCH (20:24)
[2019-04-21] MEDS: LORAZEPAM 0.5 MG TABLET PO PRN (23:48)
[2019-04-22] MEDS: HYDROCODONE/APAP 5-325MG TABLET PO PRN (01:03)
--- NOTE | 2019-04-22 04:00 | NUR ---
PATIENT IS IN BED, ASLEEP AT THIS TIME. PATIENT HAD INTERMITTENT SLEEP. PATIENT WOKE UP ALMOST EVERY HOUR DURING THE NIGHT. PATIENT REPOSITIONED, TURNED, PROVIDED QUIET AND DIM ENVIRONMENT. ALSO PROVIDED PATIENT ATIVAN AND NORCO PER MD ORDER. WILL CONTINUE TO MONITOR PATIENT AND CONTINUE FALL AND SAFETY PRECAUTIONS. ALL NEEDS ATTENDED. KEPT PATIENT WARM, DRY, CLEAN, AND COMFORTABLE AT ALL TIMES.
[2019-04-22 05:16] VITALS: BP 103/50
[2019-04-22] MEDS: TIZANIDINE HCL 4 MG TABLET PO SCH (06:03)
[2019-04-22] MEDS: PANTOPRAZOLE SODIUM 40 MG TABLET.DR PO SCH (06:04)
[2019-04-22] MEDS: GLIMEPIRIDE 2 MG TABLET PO SCH ×2 (09:12→10:00)
[2019-04-22] MEDS: ESCITALOPRAM OXALATE 10 MG TABLET PO SCH (10:00)
[2019-04-22] MEDS: DOCUSATE SODIUM 100 MG CAPSULE PO SCH (10:00)
[2019-04-22] MEDS: LINAGLIPTIN 5 MG TABLET PO SCH (10:01)
[2019-04-22] MEDS: QUETIAPINE FUMARATE 25 MG TABLET PO SCH (10:01)
[2019-04-22] MEDS: ASPIRIN 81 MG TAB.CHEW PO SCH (10:01)
[2019-04-22] MEDS: HYDROCHLOROTHIAZIDE 12.5 MG CAPSULE PO SCH (10:01)
[2019-04-22] MEDS: FLUTICASONE/VILANTEROL 1 EACH BLST.W.DEV INH SCH (10:02)
== END 2019-04-22 12:42 | DRG 949 ==
PROVIDERS: ADMIT Physical Medicine & Rehabilitation Pain Medicine; ATTEND Physical Medicine & Rehabilitation Pain Medicine
DX: S14.15 Other incomplete lesions of cervical spinal cord (principal); N17.0 Acute kidney failure with tubular necrosis; G81.94 Hemiplegia, unspecified affecting left nondominant side; G95.89 Other specified diseases of spinal cord; N39.0 Urinary tract infection, site not specified; D68.59 Other primary thrombophilia; E87.1 Hypo-osmolality and hyponatremia; W18.30XD Fall on same level, unspecified, subsequent encounter; E11.22 Type 2 diabetes mellitus with diabetic chronic kidney disease; E78.5 Hyperlipidemia, unspecified; F32.9 Major depressive disorder, single episode, unspecified; N18.3 Chronic kidney disease, stage 3 (moderate); I12.9 Hypertensive chronic kidney disease with stage 1 through stage 4 chronic kidney disease, or unspecified chronic kidney disease; M48.02 Spinal stenosis, cervical region; J45.909 Unspecified asthma, uncomplicated; R53.1 Weakness; B96.1 Klebsiella pneumoniae [K. pneumoniae] as the cause of diseases classified elsewhere; D50.9 Iron deficiency anemia, unspecified; E83.42 Hypomagnesemia; K59.00 Constipation, unspecified; R11.0 Nausea; R45.87 Impulsiveness; R45.1 Restlessness and agitation
CPT/HCPCS: 36415; 73130; 82652; 83550; 83735; 84100; 84443; 85025; 85610; 85730; 87077; 87086; 93005; A4663; J1644; J1815; J8999; Q0162

== ENCOUNTER 2019-11-10 11:48 | Inpatient (IN) | payer MEDICARE, OTHER ==
[~2019-11-10] VITALS: Ht 162.6 cm; Wt 54.0 kg
[~2019-11-10 11:48] MED LIST: BISA-57 PO; BUDE10.2 IH; DOCU-141 PO; ESOM40CA PO; EZET10TA15 PO; GABA-532 PO; HEPA500034 SUBCUT; INSU100V7 SQ; LOSA1TAB42 PO; LUBI24CA5 PO; METH-406 PO; MONT10TA27 PO; OXYC10TA49 PO; OXYC5TAB3 PO; POLY17PO4 PO; SIMV-49 PO; SITA50TA PO
--- NOTE | 2019-11-10 12:00 | NUR ---
Dr Cabrera at the bedside for MSE.
--- NOTE | 2019-11-10 12:00 | NUR ---
PT BLE and LUE contracted.
[2019-11-10] MEDS ORDERED: ONDANSETRON 4 MG/2 ML VIAL IV ONE (12:15)
[2019-11-10] MEDS ORDERED: LANS15CA13 GT (12:28)
[2019-11-10] MEDS ORDERED: CHOL10002 GT (12:28)
[2019-11-10] MEDS ORDERED: INSU100C SQ (12:28)
[2019-11-10] MEDS ORDERED: FLUT1BLS IH (12:28)
[2019-11-10] MEDS ORDERED: ESCI5TAB GT (12:28)
[2019-11-10] MEDS ORDERED: NYST15CR2 TP (12:28)
[2019-11-10] MEDS ORDERED: BISA10SU61 RC (12:28)
[2019-11-10] MEDS ORDERED: ACET-2154 PO (12:28)
[2019-11-10] MEDS ORDERED: ASCO500C16 GT (12:28)
[2019-11-10] MEDS ORDERED: QUET25TA GT (12:28)
[2019-11-10] MEDS ORDERED: LEVO500T90 GT (12:28)
[2019-11-10] MEDS ORDERED: METO25TA6 GT (12:28)
[2019-11-10] MEDS ORDERED: MIRT15TA7 GT (12:28)
[2019-11-10] MEDS ORDERED: POLY17PO4 GT (12:28)
[2019-11-10] MEDS ORDERED: MULT-213 GT (12:28)
[2019-11-10] MEDS ORDERED: DOCUSATE-SENNA GT (12:28)
[2019-11-10] MEDS ORDERED: APIX5TAB GT (12:28)
[2019-11-10] MEDS ORDERED: FERR325T28 GT (12:28)
[2019-11-10] MEDS ORDERED: ONDANSETRON 4 MG/2 ML VIAL ONE (12:30)
[2019-11-10 12:31] LABS: *BILIRUBIN,URIN NEGATIVE (NEGATIVE); *BLOOD, URINE 1+ (NEGATIVE); *CLARITY,URINE CLOUDY (CLEAR); *COLOR,URINE LIGHT YELLOW (YELLOW); *KETONES,URINE NEGATIVE (NEGATIVE); LEUKOCYTE ESTERASE ,URINE 3+ (NEGATIVE); NITRITE, URINE NEGATIVE (NEGATIVE); PH,URINE 8.5 (5.0-8.0); UGLUCOSE NEGATIVE (NEGATIVE)
[2019-11-10 12:52] LABS: BASOPHILS # (AUTO) 0.1 K/uL (0.0-8.0); BASOPHILS % (AUTO) 0.7 % (0.0-2.0); BILIRUBIN,DIRECT 0.2 mg/dL (0.0-0.2); BILIRUBIN,TOTAL 0.4 mg/dL (0.2-1.0); CREATININE 0.9 mg/dL (0.6-1.3); EOSINOPHILS # (AUTO) 0.1 K/uL (0.0-0.7); EOSINOPHILS % (AUTO) 1.1 % (0.0-7.0); HEMATOCRIT 32.2 % (31.2-41.9); HEMOGLOBIN 10.8 g/dL (10.9-14.3); LYMPHOCYTES # (AUTO) 2.3 K/uL (20.0-40.0); MEAN CORPUSCULAR HEMOGLOBIN 31.3 uug (24.7-32.8); MEAN CORPUSCULAR HGB CONC 34 g/dL (32.3-35.6); MEAN CORPUSCULAR VOLUME 92.9 fL (75.5-95.3); NEUTROPHILS # (AUTO) 8.6 K/uL (1.8-8.9); NEUTROPHILS % (AUTO) 71.2 % (38.5-71.5); PLATELET COUNT (AUTO) 468 K/uL (179-408); POTASSIUM 3.8 mmol/L (3.5-5.1); RED BLOOD CELL COUNT(AUTO) 3.46 MIL/uL (3.63-4.92); TOTAL PROTEIN, SERUM 6.8 g/dL (6.4-8.2); WHITE BLOOD COUNT (AUTO) 12.1 K/uL (3.8-11.8)
[2019-11-10] MEDS ORDERED: IOHEXOL 300MG/ML 100 ML INFUS..BTL ONE (12:53)
[2019-11-10] MEDS ORDERED: IV NORMAL SALINE 250 ML IV ONE (12:53)
[2019-11-10] MEDS ORDERED: SWABABLE VALVE TRANSFER SET EA MC ONE (12:53)
[2019-11-10 13:04] LABS: MAGNESIUM 1.6 mg/dL (1.8-2.4); PHOSPHOROUS 2.9 mg/dL (2.5-4.9)
[2019-11-10 13:06] LABS: THYROID STIMULATING HORMONE 35.3 mIU/mL (0.358-3.740)
--- NOTE | 2019-11-10 13:11 | NUR ---
Pt's Rt hip wound cleaned and dressed as well GLENN heels.
--- NOTE | 2019-11-10 13:12 | NUR ---
Called for round trip transfer to [facility] for CT. trip #[id number], ETA [address] Cabrera signed consent for IV contrasted CT, Place in the chart.
[2019-11-10] MEDS ORDERED: CEFEPIME HCL 1 G in IV DEXTROSE 5% 50 ML IV ONE (13:15)
[2019-11-10] MEDS ORDERED: IV NORMAL SALINE 1000 ML BAG IV ONE (13:15)
[2019-11-10] MEDS ORDERED: MAGNESIUM SULFATE/D5W 100 ML ONE ×2 (13:26→13:33)
[2019-11-10] MEDS ORDERED: CEFEPIME HCL 1 G VIAL ONE (13:26)
[2019-11-10] MEDS: MAGNESIUM SULFATE/D5W 100 ML IV SCH ×2 (13:28→14:15)
--- NOTE | 2019-11-10 14:06 | NUR ---
Report given to code and test clerk, Pt to be transfered to [facility] for [facility].
--- NOTE | 2019-11-10 14:09 | NUR ---
Pt left ER via [facility] ambulance.
--- NOTE | 2019-11-10 15:10 | NUR ---
Pt back from CT. Resting in bed w/ both eyes closed, NAD noted.
[2019-11-10 16:45] LABS: BACTERIA,URINE MODERATE /HPF (NONE SEEN); SQUAMOUS EPITHELIAL CELL,UR FEW /HPF (NONE SEEN); WBC,URINE 20-50 /HPF (0-3)
--- NOTE | 2019-11-10 18:01 | NUR ---
Paged [facility] for admit, awaiting call back from Dr Andres.
--- NOTE | 2019-11-10 18:14 | NUR ---
Dr Andres spoke w/ Dr Cabrera for M/S admit.
--- NOTE | 2019-11-10 18:19 | NUR ---
Bed 323 assigned for night shift manager by discharge specialist.
[2019-11-10] MEDS ORDERED: ACETAMINOPHEN 325 MG TABLET PO PRN (19:00)
[2019-11-10] MEDS ORDERED: CEFTRIAXONE 1 G in IV DEXTROSE 5% 50 ML IV SCH (19:00)
[2019-11-10] MEDS ORDERED: MAGNESIUM HYDROXIDE 30 ML LIQUID UDC PO PRN (19:00)
[2019-11-10] MEDS ORDERED: HYDROCODONE/APAP 5-325MG TABLET PO PRN (19:00)
[2019-11-10] MEDS ORDERED: ONDANSETRON 4 MG/2 ML VIAL IV PRN (19:00)
--- NOTE | 2019-11-10 19:44 | NUR ---
Report given to KYLE Sadler.
--- NOTE | 2019-11-10 19:50 | NUR ---
Patient transported to [facility] in stable condition.
[2019-11-10] MEDS ORDERED: ENOXAPARIN SODIUM 40 MG/0.4 ML DISP.SYRIN SQ SCH (21:00)
--- NOTE | 2019-11-10 21:00 | NUR ---
RECEIVED PATIENT VIA GURNEY FROM ER. PATIENT IS ALERT TO SELF, CONFUSED AND EASILY AGITATED WHEN APPROACHED. FARSI SPEAKING. VSS UPON ADMISSION, AFEBRILE. PLACED ON TELE ORDERED, SR. H/L INTACT AND PATENT, NOTED TO RIGHT HAND #20 GAUGE. PATIENT HAS MULTIPLE WOUNDS AND SKIN ISSUES NOTED. SKIN/WOUND CARE PROVIDED AND PICTURES TAKEN AND PLACED IN CHART. F/C INTACT AND PATENT, NOTED TO DRAINAGE. PATIENT KEPT NPO ORDERED, HOB ELEVATED. PATIENT HAD A SMALL EPISODE OF EMESIS, SUCTION SET-UP AT BEDSIDE. ON ASPIRATION PRECAUTIONS. ALL NEEDS ATTENDED. BED ALARM ON. WILL CONTINUE TO MONITOR AND ASSESS.
[2019-11-10 21:21] VITALS: BP 102/57
[2019-11-11 00:30] VITALS: BP 104/54
[2019-11-11 04:42] VITALS: BP 120/74
--- NOTE | 2019-11-11 06:30 | NUR ---
PATIENT ASLEEP IN BED. SLEPT AT INTERVALS. KEPT NPO ORDERED. NO EMESIS NOTED. ON TELE SR. BED ALARM ON. CALL LIGHT IN REACH. ALL NEEDS ATTENDED, WILL CONTINUE TO MONITOR.
[2019-11-11 06:48] LABS: BASOPHILS # (AUTO) 0.1 K/uL (0.0-8.0); EOSINOPHILS # (AUTO) 0.2 K/uL (0.0-0.7); EOSINOPHILS % (AUTO) 1.9 % (0.0-7.0); HEMATOCRIT 31.1 % (31.2-41.9); HEMOGLOBIN 10.7 g/dL (10.9-14.3); LYMPHOCYTES # (AUTO) 2.1 K/uL (20.0-40.0); LYMPHOCYTES % (AUTO) 23.1 % (20.5-51.5); MEAN CORPUSCULAR HEMOGLOBIN 32.3 uug (24.7-32.8); MEAN CORPUSCULAR HGB CONC 34 g/dL (32.3-35.6); MEAN CORPUSCULAR VOLUME 94.1 fL (75.5-95.3); MONOCYTES # (AUTO) 0.9 K/uL (2.0-10.0); MONOCYTES % (AUTO) 9.5 % (0.0-11.0); NEUTROPHILS % (AUTO) 64.5 % (38.5-71.5); PLATELET COUNT (AUTO) 409 K/uL (179-408); RED BLOOD CELL COUNT(AUTO) 3.31 MIL/uL (3.63-4.92); WHITE BLOOD COUNT (AUTO) 9.3 K/uL (3.8-11.8)
[2019-11-11] MEDS ORDERED: PANTOPRAZOLE SODIUM 40 MG TABLET.DR PO SCH (07:00)
[2019-11-11 07:01] LABS: CREATININE 0.9 mg/dL (0.6-1.3); MAGNESIUM 2.1 mg/dL (1.8-2.4); PHOSPHOROUS 3.2 mg/dL (2.5-4.9); POTASSIUM 4.2 mmol/L (3.5-5.1)
--- NOTE | 2019-11-11 07:30 | NUR ---
Awake, confused, laying on her left side, on moderate high back rest. GT intact, clamped. Sykes catheter to drainage bag with yellow urine. Tele SR 82. Bed alarm on
[2019-11-11 08:00] VITALS: BP 121/65
[2019-11-11] MEDS ORDERED: FLEET ENEMA 133 ML BOTTLE RC ONE (08:45)
[2019-11-11] MEDS ORDERED: MIRALAX 17 GM POWD.PACK GT PRN (11:00)
--- NOTE | 2019-11-11 11:10 | NUR ---
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 RECOMMENDATIONS MADE FOR SKIN PROTECTION. RECOMMEND SURGICAL AND DPM CONSULTS. DR TENA AND DR HART NOTIFIED OF CONSULT REQUESTS. FIRST STEP LOW AIRLOSS MATTRESS IS ON ORDER. MD IN AGREEMENT WITH PLAN OF CARE. Addendum: 11/11/19 at 1113 by ZI MARTINEZ RN Amended: Links added.
--- NOTE | 2019-11-11 12:14 | NUR ---
Solid Surface Fabricator Consultation: 11:25am: SW attempted to complete social insurance adviser consultation. SW met with the patient with the assistance of nurse nathalia Mccarty, who speaks Farsi. Patient is a 79 year old Farsi-speaking female. Patient was lying down in her assigned hospital bed. SW attempted to ask patient questions, however patient is not oriented and is a poor historian. Patient kept on repeating in a loud voice "my neck hurts" in Farsi, but did not answer any questions this SW attempted to ask. Nurse nathalia Mccarty to notify patient's nurse regarding patient's complaint of neck pain. Per patient's medical records, patient came to the ED yesterday due to vomiting and not having a bowel movement for 5 days. Patient's nurse Airam was on the phone with patient's brother Albert, who provided Ottonielserafin with the following information. Patient was at [facility] in March 2019, after which she was placed at [facility]. Two months ago, patient was discharged home from [facility], where she has been living with her brother Albert. Per Albert, patient has a caregiver and a home health nurse, Rosa Alex, . Patient requires assistance with all ADL's. Patient has diagnosis of Dementia, HTN, TBI, DM, CKD, cervical laminectomy, hx of fall. Per nursing report, patient had multiple wounds all over her body, including heels, sacral area, buttocks, and hip. Per wound care nurse report, some of these wounds are stage 3-4. At this time, RYDER Alegria to follow-up with nurse Lee. This SW to make APS report due to suspicion of inadequate care at home as evidenced by multiple wounds.
--- NOTE | 2019-11-11 12:41 | NUR ---
ALISHA submitted an APS report for this patient due to suspicion of inadequate care being provided at home as evidenced by multiple wounds. APS report # [id number]. Confirmation of APS report filed in patient's chart.
[2019-11-11] MEDS ORDERED: QUETIAPINE FUMARATE 25 MG TABLET GT SCH (13:00)
[2019-11-11] MEDS ORDERED: HYDROCODONE/APAP 5-325MG TABLET GT PRN (13:24)
[2019-11-11] MEDS ORDERED: MAGNESIUM HYDROXIDE 30 ML LIQUID UDC GT PRN (13:25)
--- NOTE | 2019-11-11 14:00 | NUR ---
Blood CS and Urine CS result relayed to Mceknna
[2019-11-11 14:58] VITALS: BP 122/69
--- NOTE | 2019-11-11 16:00 | NUR ---
Tap water enema done with soft to watery stool after. Bed bath given. Wound care done as ordered to both heels. Followed up call to family and caregiver but unable to give the right name of tube feeding. Winder Tender consult, spoke to Leia to assess and recommend/order, to see patient.
[2019-11-11] MEDS ORDERED: SILVER NITRATE APPLICATOR STICK EACH TP ONE (16:45)
[2019-11-11] MEDS ORDERED: LIDOCAINE 1%-EPI 1:100,000 20 ML VIAL TP ONE (16:45)
[2019-11-11] MEDS ORDERED: APIXABAN 5 MG TABLET GT SCH (17:00)
[2019-11-11] MEDS ORDERED: DEXTROSE 50% 50 ML DISP.SYRIN IV PRN (18:00)
[2019-11-11] MEDS: METOPROLOL TARTRATE 25 MG TABLET GT SCH (18:05)
[2019-11-11] MEDS: APIXABAN 5 MG TABLET GT SCH (18:09)
[2019-11-11] MEDS: DOCUSATE SODIUM 100 MG/10 ML LIQUID UDC GT SCH (18:09)
[2019-11-11] MEDS: FLUCONAZOLE 200 MG/NS 100ML IV 100 MG in PREMIXED 1 EACH IV SCH (18:10)
[2019-11-11] MEDS: BLOOD SUGAR DIAGNOSTIC 1 EACH STRIP VI SCH ×2 (18:28→23:31)
[2019-11-11] MEDS: CLOTRIMAZOLE/BETAMET DIPROP CREAM 15 GM TUBE TOP SCH ×2 (18:29→20:37)
--- NOTE | 2019-11-11 18:30 | NUR ---
Tube Feeding not started, pending Tin Flipper consult. Latest BG 85. Dr. Andres informed
[2019-11-11] MEDS: SENNOSIDES 1 TABLET GT SCH (18:56)
[2019-11-11] MEDS: Z GUARD REMEDY PASTE 57 GM TUBE TOP PRN (18:56)
[2019-11-11] MEDS ORDERED: MIRALAX 17 GM POWD.PACK GT SCH (19:15)
--- NOTE | 2019-11-11 19:32 | NUR ---
Consent still to be signed
[2019-11-11 20:00] VITALS: BP 104/64
[2019-11-11] MEDS ORDERED: VANCOMYCIN IV 750 MG in IV DEXTROSE 5% 250 ML IV SCH (20:00)
--- NOTE | 2019-11-11 20:00 | NUR ---
RECEIVED PATIENT AWAKE IN BED. ALERT TO SELF ONLY. CONFUSED. VSS. NO S/S OF ANY PAIN OR DISCOMFORT. NO FACIAL GRIMACE NOTED. NO RESP. DISTRESS NOTED. VS WNL. ON TELE SR. PATIENT KEPT NPO ORDERED. HOB ELEVATED. ON ASPIRATION PRECAUTIONS. F/C INTACT AND DRAINING TO GRAVITY. ON AIR MATTRESS. WOUND CARE/SKIN CARE PROVIDED, BUT UNABLE TO USE [facility] TONIGHT, PHARMACY GONE FOR THE NIGHT. VISION REHABILITATION THERAPIST NOTIFIED. BED ALARM ON. ALL NEED ATTENDED. WILL CONTINUE TO MONITOR AND ASSESS.
[2019-11-11] MEDS: SODIUM HYPOCHLORITE 0.125% (QUARTER STRENGTH) 473 ML BOTTLE TP SCH (20:36)
[2019-11-11] MEDS: NYSTATIN/TRIAMCINOLONE CREAM 15 GM TUBE TP SCH (20:37)
[2019-11-11] MEDS: MIRTAZAPINE 15 MG TABLET GT SCH (20:38)
[2019-11-11] MEDS: ACETAMINOPHEN 325 MG TABLET GT PRN (20:39)
[2019-11-11] MEDS: MONTELUKAST SODIUM 10 MG TABLET GT SCH (20:39)
[2019-11-11] MEDS ORDERED: GABAPENTIN 100 MG CAPSULE PO SCH (21:00)
[2019-11-11] MEDS ORDERED: DOCUSATE SODIUM 100 MG CAPSULE PO SCH (21:00)
[2019-11-11] MEDS: CEFEPIME HCL 1 G in IV DEXTROSE 5% 50 ML IV SCH (21:45)
[2019-11-11] MEDS: INSULIN REGULAR, HUMAN 300 UNIT/3 ML VIAL SQ PRN (23:31)
[2019-11-12] VITALS: BP 108/53
[2019-11-12 04:00] VITALS: BP 132/60
[2019-11-12] MEDS: BLOOD SUGAR DIAGNOSTIC 1 EACH STRIP VI SCH ×3 (05:51→18:01)
--- NOTE | 2019-11-12 05:56 | NUR ---
PATIENT ASLEEP IN BED. SLEPT WELL THROUGHOUT THE NIGHT. ON TELE SR. VS WNL. REPOSITIONED. BED ALARM ON. ALL NEEDS ATTENDED. WILL CONTINUE TO MONITOR AND ASSESS.
[2019-11-12] MEDS ORDERED: PANTOPRAZOLE ORAL SUSPENSION 40 MG SUSPDR.PKT GT SCH (07:00)
--- NOTE | 2019-11-12 08:00 | NUR ---
In bed and confused and disoriented X 4. Agitated and physically combative with care. No signs of distress. SR on monitor.
[2019-11-12] MEDS: FERROUS SULFATE 300 MG/5 ML LIQUID UDC GT SCH (08:43)
[2019-11-12] MEDS: SENNOSIDES 1 TABLET GT SCH ×2 (08:44→16:05)
[2019-11-12] MEDS: MULTIVITAMINS,THERAPEUTIC TABLET GT SCH (08:44)
[2019-11-12] MEDS: CHOLECALCIFEROL 1,000 UNIT TABLET GT SCH (08:44)
[2019-11-12] MEDS: ASCORBIC ACID 500 MG TABLET GT SCH (08:44)
[2019-11-12] MEDS: DOCUSATE SODIUM 100 MG/10 ML LIQUID UDC GT SCH ×2 (08:44→16:05)
[2019-11-12] MEDS: METOPROLOL TARTRATE 25 MG TABLET GT SCH ×2 (08:45→16:05)
[2019-11-12] MEDS: APIXABAN 5 MG TABLET GT SCH (08:48)
[2019-11-12] MEDS: FLUTICASONE/VILANTEROL 1 EACH BLST.W.DEV IH SCH (08:49)
[2019-11-12] MEDS: CLOTRIMAZOLE/BETAMET DIPROP CREAM 15 GM TUBE TOP SCH ×2 (08:50→22:31)
[2019-11-12] MEDS: Z GUARD REMEDY PASTE 57 GM TUBE TOP PRN (08:50)
[2019-11-12] MEDS: SODIUM HYPOCHLORITE 0.125% (QUARTER STRENGTH) 473 ML BOTTLE TP SCH (08:51)
[2019-11-12] MEDS ORDERED: ESCITALOPRAM OXALATE 10 MG TABLET GT SCH (09:00)
[2019-11-12 09:55] LABS: BASOPHILS # (AUTO) 0.1 K/uL (0.0-8.0); BASOPHILS % (AUTO) 0.6 % (0.0-2.0); EOSINOPHILS # (AUTO) 0.3 K/uL (0.0-0.7); EOSINOPHILS % (AUTO) 2.8 % (0.0-7.0); HEMATOCRIT 33.5 % (31.2-41.9); HEMOGLOBIN 11.1 g/dL (10.9-14.3); LYMPHOCYTES # (AUTO) 2.3 K/uL (20.0-40.0); MEAN CORPUSCULAR HEMOGLOBIN 31.5 uug (24.7-32.8); MEAN CORPUSCULAR HGB CONC 33 g/dL (32.3-35.6); MEAN CORPUSCULAR VOLUME 95.1 fL (75.5-95.3); MONOCYTES # (AUTO) 0.7 K/uL (2.0-10.0); MONOCYTES % (AUTO) 6.9 % (0.0-11.0); NEUTROPHILS # (AUTO) 6.8 K/uL (1.8-8.9); NEUTROPHILS % (AUTO) 66.7 % (38.5-71.5); PLATELET COUNT (AUTO) 406 K/uL (179-408); RED BLOOD CELL COUNT(AUTO) 3.52 MIL/uL (3.63-4.92); WHITE BLOOD COUNT (AUTO) 10.2 K/uL (3.8-11.8)
[2019-11-12] MEDS: CEFEPIME HCL 1 G in IV DEXTROSE 5% 50 ML IV SCH (09:56)
[2019-11-12 09:58] LABS: MAGNESIUM 1.8 mg/dL (1.8-2.4); PHOSPHOROUS 3.2 mg/dL (2.5-4.9); POTASSIUM 4.1 mmol/L (3.5-5.1)
[2019-11-12 12:19] VITALS: BP 135/67
[2019-11-12] MEDS: IV D5 1/2 NS 1000 ML 1,000 ML IV PRN (13:09)
--- NOTE | 2019-11-12 13:35 | NUR ---
Seen by Dr. Andres, made aware of KUB results and pt emesis of clear moderate amount of blood. Pt still NPO. Dr. Andres started D5 1/2 NS. Also tap water enema was administered.
[2019-11-12 15:20] VITALS: BP 147/86
[2019-11-12] MEDS: FLUCONAZOLE 200 MG/NS 100ML IV 100 MG in PREMIXED 1 EACH IV SCH (15:28)
[2019-11-12 16:19] LABS: HEMATOCRIT 33.3 % (31.2-41.9); HEMOGLOBIN 11.4 g/dL (10.9-14.3)
[2019-11-12] MEDS: NYSTATIN/TRIAMCINOLONE CREAM 15 GM TUBE TP SCH (18:00)
[2019-11-12 20:37] VITALS: BP_SYST 150; BP_SYST 172; BP_DIAS 82
[2019-11-12] MEDS ORDERED: VANCOMYCIN HCL 500 MG VIAL ONE (21:20)
[2019-11-12] MEDS: VANCOMYCIN IV 500 MG in IV DEXTROSE 5% 100 ML IV SCH (22:27)
[2019-11-12] MEDS: MONTELUKAST SODIUM 10 MG TABLET GT SCH (22:31)
[2019-11-12] MEDS: MIRTAZAPINE 15 MG TABLET GT SCH (22:31)
[2019-11-12] MEDS: PANTOPRAZOLE SODIUM 40 MG VIAL IV SCH (22:31)
[2019-11-13 01:02] VITALS: BP 148/73
[2019-11-13] MEDS: CEFEPIME HCL 1 G in IV DEXTROSE 5% 50 ML IV SCH ×3 (01:04→21:22)
[2019-11-13] MEDS: BLOOD SUGAR DIAGNOSTIC 1 EACH STRIP VI SCH ×5 (01:15→23:11)
--- NOTE | 2019-11-13 02:32 | NUR ---
IN APPARENTLY FAIR CONDITION, NEEDS ATTENDED TO, DUE MEDS GIVEN,ORAL CARE RENDERED. SAFETY PRECAUTIONS IMPLEMENTED AND OBSERVED.
[2019-11-13 05:16] VITALS: BP 158/65
[2019-11-13] MEDS: IV D5 1/2 NS 1000 ML 1,000 ML IV PRN (05:30)
[2019-11-13] MEDS: INSULIN REGULAR, HUMAN 300 UNIT/3 ML VIAL SQ PRN ×2 (05:30→17:40)
--- NOTE | 2019-11-13 05:49 | NUR ---
slept at short intervals, ivf infusing fairly well w/o any problems, iv site patent.
--- NOTE | 2019-11-13 07:00 | NUR ---
RECEIVED PATIENT AWAKE IN BED. ALERT TO SELF ONLY. CONFUSED. VSS. NO S/S OF ANY PAIN OR DISCOMFORT. NO FACIAL GRIMACE NOTED. NO RESP. DISTRESS NOTED. VS WNL. ON TELE SR.. HOB ELEVATED. ON ASPIRATION PRECAUTIONS. F/C INTACT AND DRAINING TO GRAVITY. ON AIR MATTRESS.. BED ALARM ON. ALL NEED ATTENDED. WILL CONTINUE TO MONITOR AND ASSESS.
[2019-11-13] MEDS: FERROUS SULFATE 300 MG/5 ML LIQUID UDC GT SCH (08:06)
[2019-11-13] MEDS: DOCUSATE SODIUM 100 MG/10 ML LIQUID UDC GT SCH ×2 (08:06→16:06)
[2019-11-13] MEDS: CLOTRIMAZOLE/BETAMET DIPROP CREAM 15 GM TUBE TOP SCH ×2 (08:07→20:03)
[2019-11-13] MEDS: CHOLECALCIFEROL 1,000 UNIT TABLET GT SCH (08:07)
[2019-11-13] MEDS: METOPROLOL TARTRATE 25 MG TABLET GT SCH ×3 (08:07→16:14)
[2019-11-13] MEDS: MULTIVITAMINS,THERAPEUTIC TABLET GT SCH (08:07)
[2019-11-13] MEDS: ASCORBIC ACID 500 MG TABLET GT SCH (08:07)
[2019-11-13] MEDS: SENNOSIDES 1 TABLET GT SCH ×2 (08:07→16:06)
[2019-11-13] MEDS: FLUTICASONE/VILANTEROL 1 EACH BLST.W.DEV IH SCH (08:07)
[2019-11-13] MEDS: SODIUM HYPOCHLORITE 0.125% (QUARTER STRENGTH) 473 ML BOTTLE TP SCH (08:08)
[2019-11-13] MEDS: PANTOPRAZOLE SODIUM 40 MG VIAL IV SCH ×2 (08:25→20:07)
[2019-11-13 09:26] LABS: BASOPHILS # (AUTO) 0.1 K/uL (0.0-8.0); BASOPHILS % (AUTO) 1.1 % (0.0-2.0); EOSINOPHILS # (AUTO) 0.2 K/uL (0.0-0.7); EOSINOPHILS % (AUTO) 1.4 % (0.0-7.0); HEMATOCRIT 33.1 % (31.2-41.9); LYMPHOCYTES # (AUTO) 2.6 K/uL (20.0-40.0); MEAN CORPUSCULAR HEMOGLOBIN 31.5 uug (24.7-32.8); MEAN CORPUSCULAR HGB CONC 33 g/dL (32.3-35.6); MEAN CORPUSCULAR VOLUME 94.8 fL (75.5-95.3); MONOCYTES # (AUTO) 0.8 K/uL (2.0-10.0); MONOCYTES % (AUTO) 7.1 % (0.0-11.0); NEUTROPHILS % (AUTO) 68.4 % (38.5-71.5); PLATELET COUNT (AUTO) 415 K/uL (179-408); RED BLOOD CELL COUNT(AUTO) 3.49 MIL/uL (3.63-4.92); WHITE BLOOD COUNT (AUTO) 11.7 K/uL (3.8-11.8)
[2019-11-13 09:39] LABS: CREATININE 0.9 mg/dL (0.6-1.3); MAGNESIUM 1.4 mg/dL (1.8-2.4); PHOSPHOROUS 2.3 mg/dL (2.5-4.9); POTASSIUM 2.9 mmol/L (3.5-5.1)
[2019-11-13] MEDS ORDERED: NEUTRA PHOS PACKET GT ONE (10:45)
[2019-11-13] MEDS ORDERED: POTASSIUM CHLORIDE 20 MEQ POWDER PACKET GT ONE ×2 (10:45→12:30)
[2019-11-13] MEDS: MAGNESIUM SULFATE/D5W 100 ML IV SCH ×4 (10:53→13:52)
[2019-11-13 12:48] VITALS: BP 115/55
[2019-11-13] MEDS: FLUCONAZOLE 200 MG/NS 100ML IV 100 MG in PREMIXED 1 EACH IV SCH (15:06)
[2019-11-13 15:59] VITALS: BP 115/87
[2019-11-13 16:39] LABS: HEMATOCRIT 32.1 % (31.2-41.9); HEMOGLOBIN 10.9 g/dL (10.9-14.3)
[2019-11-13] MEDS: NYSTATIN/TRIAMCINOLONE CREAM 15 GM TUBE TP SCH (17:19)
[2019-11-13] MEDS: ACETAMINOPHEN 325 MG TABLET GT PRN (19:54)
[2019-11-13] MEDS: MIRTAZAPINE 15 MG TABLET GT SCH (20:02)
[2019-11-13] MEDS: MONTELUKAST SODIUM 10 MG TABLET GT SCH (20:02)
[2019-11-13 20:09] VITALS: BP 131/78
[2019-11-13] MEDS: VANCOMYCIN IV 500 MG in IV DEXTROSE 5% 100 ML IV SCH (21:22)
--- NOTE | 2019-11-13 21:43 | NUR ---
PATIENT ASLEEP IN BED. ON TELE SR. VS WNL. REPOSITIONED. BED ALARM ON. ALL NEEDS ATTENDED. WILL CONTINUE TO MONITOR AND ASSESS.
--- NOTE | 2019-11-13 21:44 | NUR ---
dressing changes per md orders
[2019-11-14] MEDS: IV D5 1/2 NS 1000 ML 1,000 ML IV PRN ×2 (00:20→14:33)
[2019-11-14 00:21] VITALS: BP 146/74
[2019-11-14 04:46] VITALS: BP 147/77
[2019-11-14] MEDS: BLOOD SUGAR DIAGNOSTIC 1 EACH STRIP VI SCH ×3 (05:06→17:39)
--- NOTE | 2019-11-14 06:14 | NUR ---
slept at short intervals, ivf infusing fairly well w/o any problems, iv site patent.
[2019-11-14 06:21] LABS: BASOPHILS # (AUTO) 0.1 K/uL (0.0-8.0); BASOPHILS % (AUTO) 0.9 % (0.0-2.0); EOSINOPHILS # (AUTO) 0.4 K/uL (0.0-0.7); EOSINOPHILS % (AUTO) 4.2 % (0.0-7.0); HEMATOCRIT 31.9 % (31.2-41.9); HEMOGLOBIN 10.6 g/dL (10.9-14.3); LYMPHOCYTES # (AUTO) 2.4 K/uL (20.0-40.0); LYMPHOCYTES % (AUTO) 25.2 % (20.5-51.5); MEAN CORPUSCULAR HEMOGLOBIN 31.6 uug (24.7-32.8); MEAN CORPUSCULAR HGB CONC 33 g/dL (32.3-35.6); MEAN CORPUSCULAR VOLUME 95.1 fL (75.5-95.3); MONOCYTES # (AUTO) 0.9 K/uL (2.0-10.0); MONOCYTES % (AUTO) 9.1 % (0.0-11.0); NEUTROPHILS # (AUTO) 5.7 K/uL (1.8-8.9); NEUTROPHILS % (AUTO) 60.6 % (38.5-71.5); PLATELET COUNT (AUTO) 335 K/uL (179-408); RED BLOOD CELL COUNT(AUTO) 3.35 MIL/uL (3.63-4.92); WHITE BLOOD COUNT (AUTO) 9.4 K/uL (3.8-11.8)
[2019-11-14 06:41] LABS: MAGNESIUM 2.4 mg/dL (1.8-2.4); PHOSPHOROUS 2.5 mg/dL (2.5-4.9); POTASSIUM 4.5 mmol/L (3.5-5.1)
--- NOTE | 2019-11-14 08:00 | NUR ---
PATIENT AWAKE ALERT AND TALKING INCOHERENTLY, PHYSICALLY COMBATIVE DURING AM CARE. NEED ATTENDED
[2019-11-14] MEDS: CEFEPIME HCL 1 G in IV DEXTROSE 5% 50 ML IV SCH (09:10)
[2019-11-14] MEDS: FERROUS SULFATE 300 MG/5 ML LIQUID UDC GT SCH (09:11)
[2019-11-14] MEDS: PANTOPRAZOLE SODIUM 40 MG VIAL IV SCH ×2 (09:11→20:54)
[2019-11-14] MEDS: DOCUSATE SODIUM 100 MG/10 ML LIQUID UDC GT SCH ×2 (09:11→16:23)
[2019-11-14] MEDS: CHOLECALCIFEROL 1,000 UNIT TABLET GT SCH (09:12)
[2019-11-14] MEDS: MULTIVITAMINS,THERAPEUTIC TABLET GT SCH (09:12)
[2019-11-14] MEDS: ASCORBIC ACID 500 MG TABLET GT SCH (09:12)
[2019-11-14] MEDS: SENNOSIDES 1 TABLET GT SCH ×2 (09:12→16:28)
[2019-11-14] MEDS: METOPROLOL TARTRATE 25 MG TABLET GT SCH ×2 (09:13→16:24)
[2019-11-14] MEDS: FLUTICASONE/VILANTEROL 1 EACH BLST.W.DEV IH SCH (09:13)
[2019-11-14] MEDS: SODIUM HYPOCHLORITE 0.125% (QUARTER STRENGTH) 473 ML BOTTLE TP SCH (09:14)
[2019-11-14] MEDS: CLOTRIMAZOLE/BETAMET DIPROP CREAM 15 GM TUBE TOP SCH ×2 (09:14→20:54)
[2019-11-14] MEDS: Z GUARD REMEDY PASTE 57 GM TUBE TOP PRN (09:15)
--- NOTE | 2019-11-14 11:00 | NUR ---
XRAY ABDOMEN DONE WILL FOLLOW-UP RESULTS
[2019-11-14 12:00] VITALS: BP 147/68
[2019-11-14] MEDS: INSULIN REGULAR, HUMAN 300 UNIT/3 ML VIAL SQ PRN (12:45)
--- NOTE | 2019-11-14 13:00 | NUR ---
SEEN BY LAYNE FOR WOUND DEBRIDEMENT SAID WILL DEBRID PATIENT IN AM. SPOKE WITH BROTHER AND LAYNE EXPLAINED THE PROCEDURE. EULA MONTEZ GAVE TELEPHONE CONSENT AFTER
[2019-11-14] MEDS: LORAZEPAM 2 MG/1 ML VIAL IV PRN (13:11)
[2019-11-14] MEDS ORDERED: IOHEXOL 350 100 ML INFUS..BTL ONE (13:12)
[2019-11-14] MEDS ORDERED: SWABABLE VALVE TRANSFER SET EA MC ONE (13:12)
[2019-11-14 16:00] VITALS: BP 137/77
[2019-11-14] MEDS: FLUCONAZOLE 200 MG/NS 100ML IV 100 MG in PREMIXED 1 EACH IV SCH (16:01)
[2019-11-14] MEDS: NYSTATIN/TRIAMCINOLONE CREAM 15 GM TUBE TP SCH (16:29)
--- NOTE | 2019-11-14 17:00 | NUR ---
SEEN BY ID LOBSTER MAN WITH ORDER FOR TWE TILL CLEAR
[2019-11-14] MEDS: BISACODYL 10 MG SUPP.RECT RC PRN ×2 (17:38→20:54)
--- NOTE | 2019-11-14 18:39 | NUR ---
TAP WATER ENEMA ADMINISTERED AND OBTAINED LARGE AMOUNT OF PASTY BROWN STOOL
--- NOTE | 2019-11-14 19:30 | NUR ---
RECEIVED PT IN NO ACUTE DISTRESS. IV INTACT. PT ON FIRST STEP MATTRESS. SAFETY AND COMFORT PROVIDED. WILL CONTINUE TO MONITOR.
[2019-11-14 20:00] VITALS: BP 152/85
[2019-11-14] MEDS: MONTELUKAST SODIUM 10 MG TABLET GT SCH (20:53)
[2019-11-14] MEDS: AMOXICILLIN-CLAVUL 875-125MG TABLET PO SCH (20:53)
[2019-11-14] MEDS: MIRTAZAPINE 15 MG TABLET GT SCH (20:54)
[2019-11-14] MEDS: VANCOMYCIN IV 500 MG in IV DEXTROSE 5% 100 ML IV SCH (21:03)
[2019-11-14 21:27] LABS: HEMATOCRIT 33.5 % (31.2-41.9); HEMOGLOBIN 11.1 g/dL (10.9-14.3)
[2019-11-15] VITALS: BP 133/54
[2019-11-15] MEDS: BLOOD SUGAR DIAGNOSTIC 1 EACH STRIP VI SCH ×3 (00:11→12:24)
[2019-11-15 04:00] VITALS: BP 151/71
[2019-11-15] MEDS: IV D5 1/2 NS 1000 ML 1,000 ML IV PRN (05:27)
[2019-11-15] MEDS: INSULIN REGULAR, HUMAN 300 UNIT/3 ML VIAL SQ PRN ×2 (05:39→12:26)
--- NOTE | 2019-11-15 06:07 | NUR ---
PT SLEPT INTERMITTENTLY. PT IN NO ACUTE DISTRESS. PT CONFUSED. PT CONTRACTED. PT BACA CATHETER INTACT AND DRAINING WELL. TAP WATER ENEMA DONE.GOT A LARGE WATERY AND PASTY COLORED GREENISH BLACK STOOL. PT STABLE. PRESCRIBED MEDICATION GIVEN AND PT TOLERATED IT WELL. SAFETY AND COMFORT PROVIDED.PT TURNED AND REPOSITIONED Q2H. WOUND DRESSING CHANGED. ALL NEEDS ARE MET. WILL ENDORSE TO INCOMING NURSE FOR CONTINUITY OF CARE.
[2019-11-15 06:40] LABS: BASOPHILS # (AUTO) 0.1 K/uL (0.0-8.0); BASOPHILS % (AUTO) 0.4 % (0.0-2.0); EOSINOPHILS # (AUTO) 0.1 K/uL (0.0-0.7); EOSINOPHILS % (AUTO) 0.6 % (0.0-7.0); HEMATOCRIT 33.3 % (31.2-41.9); HEMOGLOBIN 11.1 g/dL (10.9-14.3); LYMPHOCYTES # (AUTO) 1.7 K/uL (20.0-40.0); LYMPHOCYTES % (AUTO) 10.1 % (20.5-51.5); MEAN CORPUSCULAR HEMOGLOBIN 31.7 uug (24.7-32.8); MEAN CORPUSCULAR HGB CONC 33 g/dL (32.3-35.6); MONOCYTES # (AUTO) 1.2 K/uL (2.0-10.0); NEUTROPHILS # (AUTO) 13.6 K/uL (1.8-8.9); NEUTROPHILS % (AUTO) 81.9 % (38.5-71.5); PLATELET COUNT (AUTO) 378 K/uL (179-408); WHITE BLOOD COUNT (AUTO) 16.6 K/uL (3.8-11.8)
[2019-11-15 06:46] LABS: MAGNESIUM 1.8 mg/dL (1.8-2.4); PHOSPHOROUS 2.7 mg/dL (2.5-4.9); POTASSIUM 3.9 mmol/L (3.5-5.1)
--- NOTE | 2019-11-15 08:00 | NUR ---
ON FIRST STEP STEPHEN FOR DECUB MANAGEMENT AWAKE ALERT TO SELF NON VERBAL AT THIS TIME NEEDS ANTICIPATED AND SATIS FIED IVF IN PROGRESS NO EPISODES OF VOMITING AT THIS TIME MADE COMFORTABLE AND WILL CONTINUE TO OBSERVE
[2019-11-15] MEDS: AMOXICILLIN-CLAVUL 875-125MG TABLET PO SCH ×2 (09:00→20:56)
[2019-11-15] MEDS: MULTIVITAMINS,THERAPEUTIC TABLET GT SCH (09:00)
[2019-11-15] MEDS: CHOLECALCIFEROL 1,000 UNIT TABLET GT SCH (09:00)
[2019-11-15] MEDS: SENNOSIDES 1 TABLET GT SCH ×2 (09:00→16:48)
[2019-11-15] MEDS: FLUTICASONE/VILANTEROL 1 EACH BLST.W.DEV IH SCH (09:00)
[2019-11-15] MEDS: DOCUSATE SODIUM 100 MG/10 ML LIQUID UDC GT SCH ×2 (09:00→16:48)
[2019-11-15] MEDS: ASCORBIC ACID 500 MG TABLET GT SCH (09:00)
[2019-11-15] MEDS: FERROUS SULFATE 300 MG/5 ML LIQUID UDC GT SCH (09:00)
[2019-11-15] MEDS: METOPROLOL TARTRATE 25 MG TABLET GT SCH ×2 (09:00→16:48)
--- NOTE | 2019-11-15 09:00 | NUR ---
SPOKE WITH ALINE THE INFECTION CONTROL PRACTITIONER RE PATIENT HAS MRSA WOUND AND HE STATED THAT THE PROTOCOL IS TO PUT PATIENT ON CONTACT ISOLATION DR GRIFFIN AWARE.
--- NOTE | 2019-11-15 09:34 | NUR ---
SPOKE WITH DR SELBY RE CLARIFICATION OF MEDICATION ADMINISTRATION THROUGH HER GT EVEN THOUGH PATIENT IS NPO MD STATED WILL CHECK AND WILL DECIDE IF MEDS COULD BE GIVEN VIA THE GT.
[2019-11-15] MEDS: PANTOPRAZOLE SODIUM 40 MG VIAL IV SCH ×2 (10:35→20:56)
[2019-11-15] MEDS: CLOTRIMAZOLE/BETAMET DIPROP CREAM 15 GM TUBE TOP SCH ×2 (10:36→20:58)
[2019-11-15] MEDS: SODIUM HYPOCHLORITE 0.125% (QUARTER STRENGTH) 473 ML BOTTLE TP SCH (10:37)
[2019-11-15 11:30] VITALS: BP 142/67
[2019-11-15] MEDS: LORAZEPAM 2 MG/1 ML VIAL IV PRN ×2 (11:56→21:03)
--- NOTE | 2019-11-15 11:56 | NUR ---
DR TILLMAN CALLED AND STATED THAT SHE WAS ON HER WAY TO DO THE DEBRIDEMENT AND WANTED PATIENT TO BE PREMEDICATED WITH ATIVAN SO ATIVAN GIVEN ORDERED
[2019-11-15] MEDS ORDERED: LIDOCAINE 1.5%-EPI 1:200,000 30 ML VIAL INJ ONE (12:00)
[2019-11-15] MEDS ORDERED: LIDOCAINE 1%-EPI 1:200,000 MPF 30 ML VIAL IJ ONE (12:15)
[2019-11-15] MEDS ORDERED: LIDOCAINE 1%-EPI 1:100,000 20 ML VIAL IJ ONE (12:15)
--- NOTE | 2019-11-15 12:30 | NUR ---
SERIAL RIGHT HIP WOUND DEBRIDEMENT DONE AT THE BEDSIDE BY DR TILLMAN AND PATIENT TOLERATED WELL
[2019-11-15] MEDS ORDERED: IV D5/ 0.9% NACL 1,000 ML IV PRN (15:15)
[2019-11-15 15:35] VITALS: BP 151/77
--- NOTE | 2019-11-15 15:36 | NUR ---
DR TONY HERE TO SEE PATIENT WITH ORDERS AND NOTED
[2019-11-15] MEDS: FLUCONAZOLE 200 MG/NS 100ML IV 100 MG in PREMIXED 1 EACH IV SCH (15:44)
--- NOTE | 2019-11-15 16:49 | NUR ---
STILL AWAITING FOR DR SELBY RE ADMINISTERING MEDICATIONS THROUGH THE GT BASED ON HER NPO ORDER.
[2019-11-15] MEDS: NYSTATIN/TRIAMCINOLONE CREAM 15 GM TUBE TP SCH (17:35)
--- NOTE | 2019-11-15 17:36 | NUR ---
UNABLE TO FIND [facility] CALLED THE PHARMACY SPOKE WITH WILLIAN STATED MED NOT AVAILABLE AT THIS TIME.
--- NOTE | 2019-11-15 19:02 | NUR ---
DR SELBY HERE AND STATED TO START PATIENT ON TUBE FEEDING AND HE DISCONTINUED THE ORDERS FOR CDIFF ACCUCHECK AND IVF AND NOTED
--- NOTE | 2019-11-15 19:30 | NUR ---
Received patient in bed. No s/s of acute distress. Gtube patent and intact with 0 residual, and clamped. Sykes in place draining via gravity. Pt is on on specialty mattress for protection. environmental monitoring technician on. Right upper arm IV patent and intact. Bed low and locked. Safety measures in place will continue to monitor.
[2019-11-15] MEDS: MIRTAZAPINE 15 MG TABLET GT SCH (20:56)
[2019-11-15] MEDS: MONTELUKAST SODIUM 10 MG TABLET GT SCH (20:56)
[2019-11-15 22:00] VITALS: BP 135/64
[2019-11-15] MEDS: VANCOMYCIN IV 500 MG in IV DEXTROSE 5% 100 ML IV SCH (22:23)
[2019-11-16] VITALS: BP 152/40
--- NOTE | 2019-11-16 01:25 | NUR ---
Gtube patent and intact. 0 residual. Began tube feeding Jevity 1.2 at 20 cc/hr per Dr. Avendano orders.
[2019-11-16] MEDS: BISACODYL 10 MG SUPP.RECT RC PRN (01:33)
[2019-11-16 04:00] VITALS: BP 110/60
--- NOTE | 2019-11-16 06:40 | NUR ---
Pt slept well. No s/s of acute distress noted. Pt is confused and contracted bilaterally upper and lower extremities. Updated wound photos taken and placed in chart. Pt had one semi formed BM at the beginning of the shift. Tap water enema administered this morning, large green semi formed BM expelled. Gtube patent and in place, running tube feeding at 20cc/h, pt seems to be handling feeding well. Comfort provided, pt turned q2h, safety measures in place and will endorse to oncoming shift.
[2019-11-16 07:47] LABS: BILIRUBIN,TOTAL 0.8 mg/dL (0.2-1.0); CREATININE 1.1 mg/dL (0.6-1.3); MAGNESIUM 1.5 mg/dL (1.8-2.4); PHOSPHOROUS 2.8 mg/dL (2.5-4.9); POTASSIUM 3.1 mmol/L (3.5-5.1); TOTAL PROTEIN, SERUM 5.3 g/dL (6.4-8.2)
[2019-11-16 07:48] LABS: BASOPHILS % (AUTO) 0.2 % (0.0-2.0); EOSINOPHILS % (AUTO) 0.1 % (0.0-7.0); HEMATOCRIT 27.6 % (31.2-41.9); HEMOGLOBIN 9.2 g/dL (10.9-14.3); LYMPHOCYTES # (AUTO) 1.9 K/uL (20.0-40.0); LYMPHOCYTES % (AUTO) 8.2 % (20.5-51.5); MEAN CORPUSCULAR HEMOGLOBIN 31.3 uug (24.7-32.8); MEAN CORPUSCULAR HGB CONC 33 g/dL (32.3-35.6); MEAN CORPUSCULAR VOLUME 94.5 fL (75.5-95.3); MONOCYTES # (AUTO) 1.2 K/uL (2.0-10.0); NEUTROPHILS # (AUTO) 20.4 K/uL (1.8-8.9); NEUTROPHILS % (AUTO) 86.5 % (38.5-71.5); PLATELET COUNT (AUTO) 280 K/uL (179-408); RED BLOOD CELL COUNT(AUTO) 2.93 MIL/uL (3.63-4.92); WHITE BLOOD COUNT (AUTO) 23.6 K/uL (3.8-11.8)
[2019-11-16 08:00] VITALS: BP 126/66
[2019-11-16] MEDS: FERROUS SULFATE 300 MG/5 ML LIQUID UDC GT SCH (09:28)
[2019-11-16] MEDS: DOCUSATE SODIUM 100 MG/10 ML LIQUID UDC GT SCH ×2 (09:28→17:37)
[2019-11-16] MEDS: SENNOSIDES 1 TABLET GT SCH ×2 (09:29→17:37)
[2019-11-16] MEDS: ASCORBIC ACID 500 MG TABLET GT SCH (09:29)
[2019-11-16] MEDS: AMOXICILLIN-CLAVUL 875-125MG TABLET PO SCH ×2 (09:29→21:43)
[2019-11-16] MEDS: FLUTICASONE/VILANTEROL 1 EACH BLST.W.DEV IH SCH (09:29)
[2019-11-16] MEDS: MULTIVITAMINS,THERAPEUTIC TABLET GT SCH (09:29)
[2019-11-16] MEDS: CHOLECALCIFEROL 1,000 UNIT TABLET GT SCH (09:29)
[2019-11-16] MEDS ORDERED: MAGNESIUM SULFATE/D5W 100 ML IV ONE (09:30)
[2019-11-16] MEDS: SODIUM HYPOCHLORITE 0.125% (QUARTER STRENGTH) 473 ML BOTTLE TP SCH (09:30)
[2019-11-16] MEDS ORDERED: POTASSIUM CHLORIDE 20 MEQ POWDER PACKET GT ONE (09:30)
[2019-11-16] MEDS: PANTOPRAZOLE SODIUM 40 MG VIAL IV SCH ×2 (09:31→21:43)
[2019-11-16] MEDS: CLOTRIMAZOLE/BETAMET DIPROP CREAM 15 GM TUBE TOP SCH ×2 (09:31→21:59)
[2019-11-16] MEDS: METOPROLOL TARTRATE 25 MG TABLET GT SCH ×2 (09:36→17:37)
[2019-11-16 11:56] VITALS: BP 156/75
--- NOTE | 2019-11-16 12:25 | NUR ---
Increased tube feeding to 30cc/hr. No residual, tolerating feeding well.
[2019-11-16] MEDS: FLUCONAZOLE 200 MG/NS 100ML IV 100 MG in PREMIXED 1 EACH IV SCH (15:36)
[2019-11-16 16:00] VITALS: BP 120/55
--- NOTE | 2019-11-16 18:00 | NUR ---
Patient had a bowel movement earlier. No acute distress. Patient stable throughout shift
--- NOTE | 2019-11-16 18:00 | NUR ---
Increase tube feeding to 40cc/hr, no residual
[2019-11-16] MEDS: NYSTATIN/TRIAMCINOLONE CREAM 15 GM TUBE TP SCH (18:27)
--- NOTE | 2019-11-16 20:00 | NUR ---
Received patient in bed .Awake no s/s of distress noted.On RA .HOB elevated with gtube in place.Gtube feeding running well at 40cc/hr.Tolerated well.Aspiration precaution observed at all times.Sykes catheter intact,draining well with clear urine output.Large BM x 1.Noted with multiple skin issues.Tx provided.Due meds given and IV ATB as ordered .No a/r noted.Will continue to monitor.
[2019-11-16 20:02] VITALS: BP 122/70
[2019-11-16] MEDS: METRONIDAZOLE 500 MG TABLET PO SCH (21:42)
[2019-11-16] MEDS: MIRTAZAPINE 15 MG TABLET GT SCH (21:42)
[2019-11-16] MEDS: MONTELUKAST SODIUM 10 MG TABLET GT SCH (21:42)
[2019-11-16] MEDS: VANCOMYCIN IV 500 MG in IV DEXTROSE 5% 100 ML IV SCH (21:44)
[2019-11-17] MEDS: LORAZEPAM 2 MG/1 ML VIAL IV PRN (02:38)
[2019-11-17 04:35] VITALS: BP 119/69
[2019-11-17] MEDS: METRONIDAZOLE 500 MG TABLET PO SCH ×3 (05:10→21:02)
[2019-11-17] MEDS: JEVITY 1.2 1000 ML LIQUID GT PRN (07:29)
[2019-11-17 07:32] LABS: BASOPHILS % (AUTO) 0.2 % (0.0-2.0); EOSINOPHILS % (AUTO) 0.1 % (0.0-7.0); HEMATOCRIT 28.1 % (31.2-41.9); HEMOGLOBIN 9.5 g/dL (10.9-14.3); LYMPHOCYTES # (AUTO) 1.9 K/uL (20.0-40.0); LYMPHOCYTES % (AUTO) 8.8 % (20.5-51.5); MEAN CORPUSCULAR HEMOGLOBIN 31.7 uug (24.7-32.8); MEAN CORPUSCULAR HGB CONC 34 g/dL (32.3-35.6); MONOCYTES # (AUTO) 1.1 K/uL (2.0-10.0); MONOCYTES % (AUTO) 5.2 % (0.0-11.0); NEUTROPHILS # (AUTO) 18.5 K/uL (1.8-8.9); NEUTROPHILS % (AUTO) 85.7 % (38.5-71.5); PLATELET COUNT (AUTO) 294 K/uL (179-408); RED BLOOD CELL COUNT(AUTO) 2.99 MIL/uL (3.63-4.92); WHITE BLOOD COUNT (AUTO) 21.5 K/uL (3.8-11.8)
[2019-11-17 07:40] LABS: MAGNESIUM 1.8 mg/dL (1.8-2.4); PHOSPHOROUS 1.3 mg/dL (2.5-4.9); POTASSIUM 3.6 mmol/L (3.5-5.1)
--- NOTE | 2019-11-17 08:00 | NUR ---
Resting comfortably in bed with eyse closed. No signs of respiratory distress and no fever. Labs today WBC 21.5. Will f/u with Dr. Avendano
[2019-11-17] MEDS: PANTOPRAZOLE SODIUM 40 MG VIAL IV SCH ×2 (08:54→20:57)
[2019-11-17] MEDS: DOCUSATE SODIUM 100 MG/10 ML LIQUID UDC GT SCH ×2 (08:54→16:13)
[2019-11-17] MEDS: SENNOSIDES 1 TABLET GT SCH ×2 (08:55→16:12)
[2019-11-17] MEDS: CHOLECALCIFEROL 1,000 UNIT TABLET GT SCH (08:55)
[2019-11-17] MEDS: MULTIVITAMINS,THERAPEUTIC TABLET GT SCH (08:56)
[2019-11-17] MEDS: ASCORBIC ACID 500 MG TABLET GT SCH (08:56)
[2019-11-17] MEDS: FLUTICASONE/VILANTEROL 1 EACH BLST.W.DEV IH SCH (09:00)
[2019-11-17] MEDS ORDERED: NEUTRA PHOS PACKET GT ONE ×2 (09:00→10:15)
[2019-11-17] MEDS: METOPROLOL TARTRATE 25 MG TABLET GT SCH ×2 (09:05→16:26)
[2019-11-17] MEDS: FERROUS SULFATE 300 MG/5 ML LIQUID UDC GT SCH (09:06)
[2019-11-17] MEDS ORDERED: POTASSIUM PHOSPHATE MM 7.5 MMOL in IV NORMAL SALINE 97.5 ML IV ONE (09:15)
[2019-11-17] MEDS: PROTEIN SUPPLEMENT (PROSTAT) 30 ML LIQUID GT SCH (09:20)
[2019-11-17] MEDS: CLOTRIMAZOLE/BETAMET DIPROP CREAM 15 GM TUBE TOP SCH ×2 (09:20→20:57)
[2019-11-17] MEDS: SODIUM HYPOCHLORITE 0.125% (QUARTER STRENGTH) 473 ML BOTTLE TP SCH (09:22)
[2019-11-17] MEDS: AMOXICILLIN-CLAVUL 875-125MG TABLET PO SCH (09:23)
--- NOTE | 2019-11-17 10:00 | NUR ---
Dr. Avendano in, noted abnormal labs with orders to give KPhos and nutro phos. Will f/u KUB and to get CDiff sample related to elevated WBCs.
--- NOTE | 2019-11-17 11:17 | NUR ---
LENY done. Will f/u with results.
--- NOTE | 2019-11-17 11:38 | NUR ---
Patient has temp of 100.[address] Avendano and stat blood cultures were ordered.
[2019-11-17 12:00] VITALS: BP 132/60
--- NOTE | 2019-11-17 12:16 | NUR ---
ALISHA received a voicemail message earlier today from [facility] psychiatric social worker Eloisa, in response to the APS report this SW had filed on 11/10. This ALISHA called Kolton back [phone] and was not able to connect with her. This SW left Eloisa a voicemail message asking Eloisa to call this ALISHA back.
[2019-11-17] MEDS: ACETAMINOPHEN 325 MG TABLET GT PRN (12:22)
[2019-11-17 16:00] VITALS: BP 93/52
[2019-11-17] MEDS: FLUCONAZOLE 200 MG/NS 100ML IV 100 MG in PREMIXED 1 EACH IV SCH (16:13)
[2019-11-17] MEDS: NYSTATIN/TRIAMCINOLONE CREAM 15 GM TUBE TP SCH (16:27)
--- NOTE | 2019-11-17 17:55 | NUR ---
Patient latest temp is 98.3. Continue cooling measures, wound care and IV antibiotics. Pt tolerating tube feeding at 50cc/hr, no residual.
[2019-11-17] MEDS ORDERED: COLISTIMETHATE SODIUM 150 MG in IV DEXTROSE 5% 100 ML IV ONE (18:40)
--- NOTE | 2019-11-17 19:20 | NUR ---
Pt in bed, sleeping, easy to arouse. No s/s of acute distress or pain at this time. V/S stable on room air. Afebrile. Gtube patent and no s/s of infection noted with Jevity 1.2 running at 50cc. Sykes intact and draining clear yellow urine. Safety measures in place. Call light within reach. Will continue with the plan of care.
[2019-11-17 20:10] VITALS: BP 128/72
[2019-11-17] MEDS: MIRTAZAPINE 15 MG TABLET GT SCH (20:57)
[2019-11-17] MEDS: MONTELUKAST SODIUM 10 MG TABLET GT SCH (20:57)
[2019-11-17] MEDS: VANCOMYCIN IV 500 MG in IV DEXTROSE 5% 100 ML IV SCH (21:02)
[2019-11-18] MEDS: METRONIDAZOLE 500 MG TABLET PO SCH ×2 (05:06→14:05)
[2019-11-18] MEDS: JEVITY 1.2 1000 ML LIQUID GT PRN (06:16)
--- NOTE | 2019-11-18 06:37 | NUR ---
Pt slept through the night. No s/s of acute distress or pain. V/S stable. Jevity 1.2 running at 50cc. Pt tolerating feeding very well. Sykes draining well. Comfort care and needs attended. Wound care provided. On Specialty air mattress, turned and repositioned for comfort, heels offloading on pillows. Aspiration precaution maintained. Safety measures in place. Call light within reach. Will endorse to the oncoming nurse accordingly.
[2019-11-18 06:40] LABS: BASOPHILS % (AUTO) 0.2 % (0.0-2.0); EOSINOPHILS # (AUTO) 0.2 K/uL (0.0-0.7); HEMATOCRIT 28.9 % (31.2-41.9); HEMOGLOBIN 9.7 g/dL (10.9-14.3); LYMPHOCYTES % (AUTO) 11.7 % (20.5-51.5); MEAN CORPUSCULAR HEMOGLOBIN 31.9 uug (24.7-32.8); MEAN CORPUSCULAR HGB CONC 34 g/dL (32.3-35.6); MEAN CORPUSCULAR VOLUME 94.7 fL (75.5-95.3); MONOCYTES % (AUTO) 5.5 % (0.0-11.0); NEUTROPHILS # (AUTO) 14.2 K/uL (1.8-8.9); NEUTROPHILS % (AUTO) 81.6 % (38.5-71.5); PLATELET COUNT (AUTO) 312 K/uL (179-408); RED BLOOD CELL COUNT(AUTO) 3.06 MIL/uL (3.63-4.92); WHITE BLOOD COUNT (AUTO) 17.4 K/uL (3.8-11.8)
[2019-11-18 07:09] LABS: BILIRUBIN,TOTAL 0.5 mg/dL (0.2-1.0); CREATININE 0.8 mg/dL (0.6-1.3); MAGNESIUM 1.6 mg/dL (1.8-2.4); PHOSPHOROUS 1.8 mg/dL (2.5-4.9); POTASSIUM 4.2 mmol/L (3.5-5.1)
[2019-11-18] MEDS: PROTEIN SUPPLEMENT (PROSTAT) 30 ML LIQUID GT SCH (08:13)
[2019-11-18] MEDS: DOCUSATE SODIUM 100 MG/10 ML LIQUID UDC GT SCH ×2 (08:14→16:52)
[2019-11-18] MEDS: PANTOPRAZOLE SODIUM 40 MG VIAL IV SCH ×2 (08:14→20:03)
[2019-11-18] MEDS: CHOLECALCIFEROL 1,000 UNIT TABLET GT SCH (08:14)
[2019-11-18] MEDS: SENNOSIDES 1 TABLET GT SCH ×2 (08:14→16:52)
[2019-11-18] MEDS: METOPROLOL TARTRATE 25 MG TABLET GT SCH ×2 (08:15→16:52)
[2019-11-18] MEDS: FERROUS SULFATE 300 MG/5 ML LIQUID UDC GT SCH (08:15)
[2019-11-18] MEDS: MULTIVITAMINS,THERAPEUTIC TABLET GT SCH (08:15)
[2019-11-18] MEDS: ASCORBIC ACID 500 MG TABLET GT SCH (08:15)
[2019-11-18] MEDS: FLUTICASONE/VILANTEROL 1 EACH BLST.W.DEV IH SCH (08:35)
[2019-11-18] MEDS ORDERED: COLISTIMETHATE SODIUM IV ONE (09:00)
[2019-11-18] MEDS ORDERED: DEXTROSE 5% IV ONE (09:00)
[2019-11-18] MEDS ORDERED: NEUTRA PHOS PACKET GT ONE (09:15)
[2019-11-18] MEDS: SODIUM HYPOCHLORITE 0.125% (QUARTER STRENGTH) 473 ML BOTTLE TP SCH (09:39)
[2019-11-18] MEDS: CLOTRIMAZOLE/BETAMET DIPROP CREAM 15 GM TUBE TOP SCH ×2 (09:57→21:09)
[2019-11-18] MEDS: MAGNESIUM SULFATE/D5W 100 ML IV SCH ×2 (10:14→11:36)
--- NOTE | 2019-11-18 11:13 | NUR ---
Pt received in bed, sleeping comfortably. No signs of pain or distress. Not restless. G-tube intact, IV in right arm patent. Wound care done for sacral/heels/hips. Pts position changed. Call light within reach, Will continue to monitor.
--- NOTE | 2019-11-18 11:16 | NUR ---
PTs Sykes is draining yellow, urine. Pt is tolerating feedings very well, jevity running at 50cc/hr. Will continue to monitor.
[2019-11-18] MEDS: ACETAMINOPHEN 325 MG TABLET GT PRN ×2 (11:23→20:04)
[2019-11-18 11:30] VITALS: BP 126/54
[2019-11-18] MEDS: IV NS 1000 ML 1,000 ML IV PRN (14:06)
[2019-11-18 14:37] VITALS: BP 124/55
[2019-11-18 15:09] LABS: *BILIRUBIN,URIN NEGATIVE (NEGATIVE); *CLARITY,URINE CLEAR (CLEAR); *COLOR,URINE YELLOW (YELLOW); *KETONES,URINE NEGATIVE (NEGATIVE); *UROBILINOGEN,URINE 0.2 E.U./dl (NORMAL); LEUKOCYTE ESTERASE ,URINE TRACE (NEGATIVE); NITRITE, URINE NEGATIVE (NEGATIVE)
[2019-11-18 15:29] LABS: UGLUCOSE 1+ (NEGATIVE)
[2019-11-18 15:30] LABS: *BLOOD, URINE TRACE (NEGATIVE)
[2019-11-18] MEDS: FLUCONAZOLE 200 MG/NS 100ML IV 100 MG in PREMIXED 1 EACH IV SCH (15:39)
[2019-11-18] MEDS: NYSTATIN/TRIAMCINOLONE CREAM 15 GM TUBE TP SCH (17:51)
--- NOTE | 2019-11-18 18:50 | NUR ---
Patient in bed, No signs of distress noted. No SOB. No signs of pain or discomfort. GTF intact and patent. Wound treatment done. turned and repositioned Q2H. kept clean and comfortable. Will endorse to oncoming Nurse.
[2019-11-18] MEDS: MONTELUKAST SODIUM 10 MG TABLET GT SCH (20:04)
[2019-11-18 20:12] VITALS: BP 153/93
[2019-11-18] MEDS ORDERED: DEXTROSE 5% IV SCH (21:00)
[2019-11-18] MEDS ORDERED: COLISTIMETHATE SODIUM IV SCH (21:00)
[2019-11-18] MEDS: LINEZOLID 600 MG TABLET PO SCH (21:08)
[2019-11-18 21:17] LABS: BACTERIA,URINE FEW /HPF (NONE SEEN); SQUAMOUS EPITHELIAL CELL,UR FEW /HPF (NONE SEEN); YEAST,URINE BUDDING YEAST /HPF (NONE SEEN)
--- NOTE | 2019-11-19 00:18 | NUR ---
awake but non verbal. Patient unresponsive to painful stimuli. Bedrest maintained. On continous tubefeeds of Glucerna @ 50cc/hr HOB up @ all times. Peg tube intact, flushed with water q6hrs as ordered. All meds goes thru the tube. Repositioned for comfort. Turned to sides q2hrs. Sykes catheter intact draining yellow urine. I & O mobnitor. Rt FA #20 heplock intact, IVF's infusing well @ 75 cc/hr. On 3L O2 via nasal cannula. Will monitor patient. Kept comfortable. Siderails up for safety. No acute distress noted. VSS.
[2019-11-19 04:02] VITALS: BP 104/55
[2019-11-19] MEDS: IV NS 1000 ML 1,000 ML IV PRN ×2 (04:24→21:37)
--- NOTE | 2019-11-19 05:32 | NUR ---
addendum: Jevity @ 50cc/hr continous via PEG tube not Glucerna(typo error). Tolerated well. Will monitor patient. VSS. Kept comfortable.IVF's infusing as well.
[2019-11-19 06:14] LABS: BASOPHILS # (AUTO) 0.1 K/uL (0.0-8.0); BASOPHILS % (AUTO) 0.4 % (0.0-2.0); EOSINOPHILS # (AUTO) 0.2 K/uL (0.0-0.7); EOSINOPHILS % (AUTO) 1.2 % (0.0-7.0); HEMATOCRIT 24.1 % (31.2-41.9); HEMOGLOBIN 8.2 g/dL (10.9-14.3); LYMPHOCYTES # (AUTO) 2.2 K/uL (20.0-40.0); LYMPHOCYTES % (AUTO) 11.2 % (20.5-51.5); MEAN CORPUSCULAR HEMOGLOBIN 32.4 uug (24.7-32.8); MEAN CORPUSCULAR HGB CONC 34 g/dL (32.3-35.6); MEAN CORPUSCULAR VOLUME 95.1 fL (75.5-95.3); MONOCYTES # (AUTO) 1.4 K/uL (2.0-10.0); MONOCYTES % (AUTO) 7.4 % (0.0-11.0); NEUTROPHILS # (AUTO) 15.3 K/uL (1.8-8.9); NEUTROPHILS % (AUTO) 79.8 % (38.5-71.5); PLATELET COUNT (AUTO) 244 K/uL (179-408); RED BLOOD CELL COUNT(AUTO) 2.53 MIL/uL (3.63-4.92); WHITE BLOOD COUNT (AUTO) 19.2 K/uL (3.8-11.8)
--- NOTE | 2019-11-19 06:26 | NUR ---
End of shift notes: Bedrest maintained. Patient non-verbal. Repositioned. Kept comfortable. VSS. Sykes catheter draining well. Will monitor patient.No acute distress noted.
[2019-11-19 06:29] LABS: MAGNESIUM 1.7 mg/dL (1.8-2.4); PHOSPHOROUS 1.5 mg/dL (2.5-4.9); POTASSIUM 3.7 mmol/L (3.5-5.1)
--- NOTE | 2019-11-19 07:30 | NUR ---
Received patient resting in bed dozing intermittently. Upper and lower extremities are severely contracted. Patient has IV in right forearm 20 gauge running NS 75 mls/hr. Patient also has a PEG tube running Jevity 50 cc and needs to be flushed 150 cc Q6H. and is NPO. Safety precautions are in place with call lights and belongings within reach. Will continue to monitor.
[2019-11-19] MEDS: PROTEIN SUPPLEMENT (PROSTAT) 30 ML LIQUID GT SCH (08:00)
[2019-11-19] MEDS: SENNOSIDES 1 TABLET GT SCH ×2 (09:17→16:53)
[2019-11-19] MEDS: MULTIVITAMINS,THERAPEUTIC TABLET GT SCH (09:17)
[2019-11-19] MEDS: CHOLECALCIFEROL 1,000 UNIT TABLET GT SCH (09:17)
[2019-11-19] MEDS: ASCORBIC ACID 500 MG TABLET GT SCH (09:17)
[2019-11-19] MEDS: FERROUS SULFATE 300 MG/5 ML LIQUID UDC GT SCH (09:18)
[2019-11-19] MEDS: FLUTICASONE/VILANTEROL 1 EACH BLST.W.DEV IH SCH (09:19)
[2019-11-19] MEDS: LINEZOLID 600 MG TABLET PO SCH ×2 (09:19→21:02)
[2019-11-19] MEDS: PANTOPRAZOLE SODIUM 40 MG VIAL IV SCH ×2 (09:19→21:32)
[2019-11-19] MEDS: DOCUSATE SODIUM 100 MG/10 ML LIQUID UDC GT SCH ×2 (09:19→16:53)
[2019-11-19] MEDS: CLOTRIMAZOLE/BETAMET DIPROP CREAM 15 GM TUBE TOP SCH ×2 (09:20→21:13)
[2019-11-19] MEDS: SODIUM HYPOCHLORITE 0.125% (QUARTER STRENGTH) 473 ML BOTTLE TP SCH (09:20)
[2019-11-19] MEDS: METOPROLOL TARTRATE 25 MG TABLET GT SCH ×2 (09:27→17:15)
[2019-11-19] MEDS: MAGNESIUM SULFATE/D5W 100 ML IV SCH ×2 (09:30→11:05)
[2019-11-19] MEDS ORDERED: NEUTRA PHOS PACKET PO ONE (10:00)
--- NOTE | 2019-11-19 10:30 | NUR ---
Cleaned and dressed patients pressure injury. Cleaned with saline, packed with Dakins soaked gauze and covered with Mepilex. reinforced with paper tape. 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 Bilateral heal covered with Mepilex and wrapped with Kerlix. Will continue to monitor.
[2019-11-19 11:30] VITALS: BP 103/43
[2019-11-19] MEDS: COLISTIMETHATE SODIUM IV SCH ×3 (13:31→21:32)
[2019-11-19] MEDS: DEXTROSE 5% IV SCH ×3 (13:31→21:32)
--- NOTE | 2019-11-19 15:26 | NUR ---
Patient was picked up by paramedics in [facility] ambulance. Report given and paperwork sent with them including discharge instructions and medications list. Report already given to RN at [facility]. Addendum: 11/19/19 at 1530 by NEW AKINS RN Charted on wrong patient. Please disregard
[2019-11-19 16:00] VITALS: BP 100/42
[2019-11-19] MEDS: FLUCONAZOLE 100 MG TABLET PO SCH (16:53)
[2019-11-19] MEDS: NYSTATIN/TRIAMCINOLONE CREAM 15 GM TUBE TP SCH (18:00)
[2019-11-19 20:50] VITALS: BP 149/65
[2019-11-19] MEDS: MONTELUKAST SODIUM 10 MG TABLET GT SCH ×2 (21:10→21:16)
[2019-11-19] MEDS: JEVITY 1.2 1000 ML LIQUID GT PRN (21:49)
--- NOTE | 2019-11-19 22:24 | NUR ---
patient received with no IV line. protonix and antibiotic not able to administer. returned to [facility]. nursing equipment maintenance supervisor came and inserted new PIV. antibiotic and protonix administered. IV intact and patent. v/s stable. no acute distress noted. on RA. will continue to monitor and assess until care is rendered to PM nurse at 2300.
[2019-11-20] MEDS: ACETAMINOPHEN 325 MG TABLET GT PRN (05:48)
[2019-11-20 05:56] VITALS: BP 159/74
[2019-11-20] MEDS: hydrALAZINE HCL 20 MG/1 ML VIAL IV PRN (06:10)
[2019-11-20 06:11] VITALS: BP 160/76
--- NOTE | 2019-11-20 06:27 | NUR ---
Awake upon rounds. Moaning at times. On continous tube feedings of Jevity @ 50cc/hr. Tolerated well. HOB up @ all times. Repositioned for comfort. Turned to sides. Incontinent of BM x2 Kept clean and dry. Dressings to bilateral hip intact. Sykes catheter intact draining yellow urine. Rt wrist #22 heplock intact, IVF's NSS @ 75cc/hr infusing well. I & O monitor. Temp 101.9 HR 120 Resp 20 BP 159/74 pulse ox 96% on 3L O2 via nasal cannula. BP rechecked BP 160/76 HR 90 Hydralazine 10 mg IV push given . Will monitor patient. Tylenol 325 mg given via Gtube for temp 101.9 Tolerated well. Will monitor patient's BP and temperature. Latest temp 100.9
[2019-11-20] MEDS: PROTEIN SUPPLEMENT (PROSTAT) 30 ML LIQUID GT SCH (08:00)
[2019-11-20] MEDS: FLUTICASONE/VILANTEROL 1 EACH BLST.W.DEV IH SCH (09:00)
[2019-11-20] MEDS: CLOTRIMAZOLE/BETAMET DIPROP CREAM 15 GM TUBE TOP SCH ×2 (09:00→20:41)
[2019-11-20 09:03] LABS: BILIRUBIN,TOTAL 0.3 mg/dL (0.2-1.0); CREATININE 1.2 mg/dL (0.6-1.3); PHOSPHOROUS 1.6 mg/dL (2.5-4.9); POTASSIUM 3.9 mmol/L (3.5-5.1); TOTAL PROTEIN, SERUM 5.8 g/dL (6.4-8.2)
[2019-11-20 09:06] LABS: BASOPHILS % (AUTO) 0.3 % (0.0-2.0); EOSINOPHILS # (AUTO) 0.3 K/uL (0.0-0.7); EOSINOPHILS % (AUTO) 1.9 % (0.0-7.0); HEMATOCRIT 27.3 % (31.2-41.9); LYMPHOCYTES # (AUTO) 1.9 K/uL (20.0-40.0); LYMPHOCYTES % (AUTO) 11.5 % (20.5-51.5); MEAN CORPUSCULAR HEMOGLOBIN 31.7 uug (24.7-32.8); MEAN CORPUSCULAR HGB CONC 33 g/dL (32.3-35.6); MEAN CORPUSCULAR VOLUME 95.9 fL (75.5-95.3); MONOCYTES # (AUTO) 1.3 K/uL (2.0-10.0); MONOCYTES % (AUTO) 7.8 % (0.0-11.0); NEUTROPHILS # (AUTO) 13.2 K/uL (1.8-8.9); NEUTROPHILS % (AUTO) 78.5 % (38.5-71.5); PLATELET COUNT (AUTO) 325 K/uL (179-408); RED BLOOD CELL COUNT(AUTO) 2.84 MIL/uL (3.63-4.92); WHITE BLOOD COUNT (AUTO) 16.8 K/uL (3.8-11.8)
--- NOTE | 2019-11-20 09:30 | NUR ---
Nursing patient quiet in bed, moans and groans when being repositioned at a regular intervals. Heels floated. Sykes cath intact patent, draining cloudy yellow urine. GT feedings in progress, tolerating fairly well via pump50 ml/hr, flushed with 150 ml water. Poor skin turgor, wounds on her right hip , dressed as ordered, left axillary rash, Z-gurad to coccygeal area , bilateral heels floated .Dr Avendano aware of patients condiition, lab. results this am. Urine specimen was obtained sent to lab.Contact Isolation observed and in progress.
[2019-11-20] MEDS: SENNOSIDES 1 TABLET GT SCH ×2 (10:47→18:02)
[2019-11-20] MEDS: CHOLECALCIFEROL 1,000 UNIT TABLET GT SCH (10:47)
[2019-11-20] MEDS: PANTOPRAZOLE ORAL SUSPENSION 40 MG SUSPDR.PKT GT SCH ×2 (10:47→20:40)
[2019-11-20] MEDS: METOPROLOL TARTRATE 25 MG TABLET GT SCH ×2 (10:49→18:15)
[2019-11-20] MEDS: DOCUSATE SODIUM 100 MG/10 ML LIQUID UDC GT SCH ×2 (10:49→17:00)
[2019-11-20] MEDS: MULTIVITAMINS,THERAPEUTIC TABLET GT SCH (10:50)
[2019-11-20] MEDS: ASCORBIC ACID 500 MG TABLET GT SCH (10:50)
[2019-11-20] MEDS: FERROUS SULFATE 300 MG/5 ML LIQUID UDC GT SCH (10:50)
[2019-11-20] MEDS: NYSTATIN/TRIAMCINOLONE CREAM 15 GM TUBE TP SCH (10:50)
[2019-11-20] MEDS: LINEZOLID 600 MG TABLET PO SCH ×2 (10:50→20:40)
[2019-11-20] MEDS: COLISTIMETHATE SODIUM IV SCH ×2 (10:56→20:40)
[2019-11-20] MEDS: DEXTROSE 5% IV SCH ×2 (10:56→20:40)
[2019-11-20] MEDS ORDERED: IV SODIUM CHLORIDE 3% 500 ML IV ONE (11:00)
[2019-11-20 11:02] LABS: THYROID STIMULATING HORMONE 14.719 mIU/mL (0.358-3.740)
[2019-11-20] MEDS: IV NS 1000 ML 1,000 ML IV PRN (11:09)
[2019-11-20 11:11] LABS: MAGNESIUM 1.6 mg/dL (1.8-2.4); PHOSPHOROUS 1.6 mg/dL (2.5-4.9)
[2019-11-20 11:18] LABS: URIC ACID 2.8 mg/dL (2.6-6.0)
[2019-11-20 11:58] VITALS: BP 106/54
[2019-11-20 12:38] LABS: *BILIRUBIN,URIN NEGATIVE (NEGATIVE); *BLOOD, URINE 2+ (NEGATIVE); *CLARITY,URINE CLEAR (CLEAR); *COLOR,URINE YELLOW (YELLOW); *KETONES,URINE NEGATIVE (NEGATIVE); *UROBILINOGEN,URINE 0.2 E.U./dl (NORMAL); LEUKOCYTE ESTERASE ,URINE 2+ (NEGATIVE); NITRITE, URINE NEGATIVE (NEGATIVE); PH,URINE 7.5 (5.0-8.0)
[2019-11-20 12:43] LABS: UGLUCOSE 1+ (NEGATIVE)
[2019-11-20] MEDS: SODIUM HYPOCHLORITE 0.125% (QUARTER STRENGTH) 473 ML BOTTLE TP SCH (12:59)
[2019-11-20 15:50] VITALS: BP 108/46
[2019-11-20] MEDS ORDERED: NEUTRA PHOS PACKET GT ONE (16:15)
--- NOTE | 2019-11-20 16:42 | NUR ---
Nursing - Matt PHARMACEUTICAL REPRESENTATIVE in to see patient, aware of Labs this am, plan to dc. NS 75 ml /hr, waiting for order
[2019-11-20 17:19] LABS: BACTERIA,URINE MODERATE /HPF (NONE SEEN); SQUAMOUS EPITHELIAL CELL,UR MODERATE /HPF (NONE SEEN); WBC,URINE 80-100 /HPF (0-3)
[2019-11-20] MEDS: FLUCONAZOLE 100 MG TABLET PO SCH (18:03)
[2019-11-20 20:00] VITALS: BP 102/58
[2019-11-20] MEDS: MONTELUKAST SODIUM 10 MG TABLET GT SCH (20:40)
[2019-11-21 04:00] VITALS: BP 114/68
[2019-11-21 06:30] LABS: BASOPHILS % (AUTO) 0.2 % (0.0-2.0); EOSINOPHILS # (AUTO) 0.1 K/uL (0.0-0.7); EOSINOPHILS % (AUTO) 0.9 % (0.0-7.0); HEMATOCRIT 22.7 % (31.2-41.9); HEMOGLOBIN 7.5 g/dL (10.9-14.3); LYMPHOCYTES # (AUTO) 1.9 K/uL (20.0-40.0); LYMPHOCYTES % (AUTO) 12.1 % (20.5-51.5); MEAN CORPUSCULAR HEMOGLOBIN 31.7 uug (24.7-32.8); MEAN CORPUSCULAR HGB CONC 33 g/dL (32.3-35.6); MEAN CORPUSCULAR VOLUME 95.5 fL (75.5-95.3); MONOCYTES # (AUTO) 1.1 K/uL (2.0-10.0); MONOCYTES % (AUTO) 7.3 % (0.0-11.0); NEUTROPHILS # (AUTO) 12.2 K/uL (1.8-8.9); NEUTROPHILS % (AUTO) 79.5 % (38.5-71.5); PLATELET COUNT (AUTO) 289 K/uL (179-408); WHITE BLOOD COUNT (AUTO) 15.3 K/uL (3.8-11.8)
[2019-11-21 06:39] LABS: CARBON DIOXIDE 26 mmol/L (21-32); CHLORIDE 111 mmol/L (98-107); CREATININE 1.4 mg/dL (0.6-1.3); GLUCOSE 177 mg/dL (74-106); POTASSIUM 3.8 mmol/L (3.5-5.1); UREA NITROGEN, BLOOD 31 mg/dL (7-18)
[2019-11-21 07:14] LABS: RED BLOOD CELL COUNT(AUTO) 2.38 MIL/uL (3.63-4.92)
[2019-11-21 08:02] LABS: *CREATININE,URINE 18.9 mg/dL (30-125); *URINE TOTAL PROTEIN RANDOM 143.9 mg/dL (<150/24HR)
[2019-11-21] MEDS: PROTEIN SUPPLEMENT (PROSTAT) 30 ML LIQUID GT SCH (08:07)
[2019-11-21] MEDS: SENNOSIDES 1 TABLET GT SCH ×2 (08:36→16:11)
[2019-11-21] MEDS: CHOLECALCIFEROL 1,000 UNIT TABLET GT SCH (08:37)
[2019-11-21] MEDS: DOCUSATE SODIUM 100 MG/10 ML LIQUID UDC GT SCH ×2 (08:37→16:12)
[2019-11-21] MEDS: METOPROLOL TARTRATE 25 MG TABLET GT SCH ×2 (08:41→16:12)
[2019-11-21] MEDS: FLUCONAZOLE 100 MG TABLET PO SCH (08:42)
[2019-11-21] MEDS: FERROUS SULFATE 300 MG/5 ML LIQUID UDC GT SCH (08:42)
[2019-11-21] MEDS: PANTOPRAZOLE ORAL SUSPENSION 40 MG SUSPDR.PKT GT SCH ×2 (08:42→21:00)
[2019-11-21] MEDS: ASCORBIC ACID 500 MG TABLET GT SCH (08:43)
[2019-11-21] MEDS: MULTIVITAMINS,THERAPEUTIC TABLET GT SCH (08:43)
[2019-11-21] MEDS: SODIUM HYPOCHLORITE 0.125% (QUARTER STRENGTH) 473 ML BOTTLE TP SCH (08:55)
[2019-11-21] MEDS: CLOTRIMAZOLE/BETAMET DIPROP CREAM 15 GM TUBE TOP SCH ×2 (08:55→21:18)
[2019-11-21] MEDS: LINEZOLID 600 MG TABLET PO SCH ×2 (08:59→21:11)
[2019-11-21] MEDS: DEXTROSE 5% IV SCH (09:07)
[2019-11-21] MEDS: FLUTICASONE/VILANTEROL 1 EACH BLST.W.DEV IH SCH (09:07)
[2019-11-21] MEDS: COLISTIMETHATE SODIUM IV SCH (09:07)
[2019-11-21 11:38] VITALS: BP 117/62
--- NOTE | 2019-11-21 12:12 | NUR ---
Handoff with afternoon team RN, Arturo Pepe RN
[2019-11-21] MEDS: LORAZEPAM 2 MG/1 ML VIAL IV PRN (12:31)
[2019-11-21] MEDS ORDERED: NEUTRA PHOS PACKET GT ONE (15:30)
[2019-11-21 15:46] VITALS: BP 141/79
[2019-11-21] MEDS: NYSTATIN/TRIAMCINOLONE CREAM 15 GM TUBE TP SCH (16:13)
[2019-11-21 20:00] VITALS: BP 154/98
--- NOTE | 2019-11-21 20:08 | NUR ---
Received patient awake,nonverbal with 02 inhalation at 2 LPM via NC saturating at 96%.HOB elevated.Gtube in place with Jevity 1.2@50ml/hr.No residual .Flushed Gtube as ordered.Tolerated gtube feeding.Aspiration precaution observed at all times.Due meds given except Protonix suspension not administered d/t not available per charge nurse /claims supervisor.Sykes catheter intact draining well with clear yellow output.Continue safety measures.Will continue to monitor.
[2019-11-21] MEDS ORDERED: DEXTROSE 5% IV SCH (21:00)
[2019-11-21] MEDS ORDERED: COLISTIMETHATE SODIUM IV SCH (21:00)
[2019-11-21] MEDS: MONTELUKAST SODIUM 10 MG TABLET GT SCH (21:10)
[2019-11-21] MEDS ORDERED: CEFEPIME HCL 1 G VIAL ONE (21:40)
[2019-11-21] MEDS: CEFEPIME HCL 1 G in IV DEXTROSE 5% 50 ML IV SCH (22:11)
[2019-11-22] MEDS: LORAZEPAM 2 MG/1 ML VIAL IV PRN (02:27)
[2019-11-22] MEDS: IV 1/2NS 1000 ML 1,000 ML IV PRN (03:37)
[2019-11-22 04:00] VITALS: BP 154/96
--- NOTE | 2019-11-22 06:26 | NUR ---
Patient asleep in bed. Alert to self. Head of bed is elevated and bed is in lowest position. G-tube is running at 50cc/hr jevity 1.2. O2 NC at 2L/min. Daily weight was checked at 0615 with a weight of 119 lbs. Patient does not seem to be in any distress at this time.
[2019-11-22 06:51] LABS: BASOPHILS % (AUTO) 0.2 % (0.0-2.0); EOSINOPHILS # (AUTO) 0.3 K/uL (0.0-0.7); EOSINOPHILS % (AUTO) 1.5 % (0.0-7.0); HEMOGLOBIN 8.1 g/dL (10.9-14.3); LYMPHOCYTES # (AUTO) 2.4 K/uL (20.0-40.0); LYMPHOCYTES % (AUTO) 13.6 % (20.5-51.5); MEAN CORPUSCULAR HEMOGLOBIN 31.7 uug (24.7-32.8); MEAN CORPUSCULAR HGB CONC 34 g/dL (32.3-35.6); MONOCYTES # (AUTO) 1.3 K/uL (2.0-10.0); NEUTROPHILS # (AUTO) 13.9 K/uL (1.8-8.9); NEUTROPHILS % (AUTO) 77.7 % (38.5-71.5); PLATELET COUNT (AUTO) 357 K/uL (179-408); RED BLOOD CELL COUNT(AUTO) 2.55 MIL/uL (3.63-4.92); WHITE BLOOD COUNT (AUTO) 17.9 K/uL (3.8-11.8)
[2019-11-22 06:57] LABS: ALANINE AMINOTRANSFERASE 11 U/L (14-59); ALKALINE PHOSPHATASE 112 U/L (50-136); ASPARTATE AMINOTRANSFERASE 18 U/L (15-37); BILIRUBIN,TOTAL 0.3 mg/dL (0.2-1.0); CARBON DIOXIDE 24 mmol/L (21-32); CHLORIDE 102 mmol/L (98-107); CREATININE 1.5 mg/dL (0.6-1.3); GLUCOSE 140 mg/dL (74-106); MAGNESIUM 1.3 mg/dL (1.8-2.4); PHOSPHOROUS 2.9 mg/dL (2.5-4.9); TOTAL PROTEIN, SERUM 6.2 g/dL (6.4-8.2); UREA NITROGEN, BLOOD 36 mg/dL (7-18)
--- NOTE | 2019-11-22 07:10 | NUR ---
Received patient asleep in bed. GT feeding running. Patient shows no S/S of distress or discomfort. Bed in lowest position, side rails up x2, call light within reach. Will continue to monitor.
[2019-11-22] MEDS: DOCUSATE SODIUM 100 MG/10 ML LIQUID UDC GT SCH ×2 (08:12→16:55)
[2019-11-22] MEDS: PROTEIN SUPPLEMENT (PROSTAT) 30 ML LIQUID GT SCH (08:12)
[2019-11-22] MEDS: FERROUS SULFATE 300 MG/5 ML LIQUID UDC GT SCH (08:13)
[2019-11-22] MEDS: CHOLECALCIFEROL 1,000 UNIT TABLET GT SCH (08:14)
[2019-11-22] MEDS: MULTIVITAMINS,THERAPEUTIC TABLET GT SCH (08:14)
[2019-11-22] MEDS: PANTOPRAZOLE ORAL SUSPENSION 40 MG SUSPDR.PKT GT SCH ×2 (08:15→21:21)
[2019-11-22] MEDS: SENNOSIDES 1 TABLET GT SCH ×2 (08:15→16:55)
[2019-11-22] MEDS: METOPROLOL TARTRATE 25 MG TABLET GT SCH ×2 (08:15→16:55)
[2019-11-22] MEDS: ASCORBIC ACID 500 MG TABLET GT SCH (08:15)
[2019-11-22] MEDS: FLUTICASONE/VILANTEROL 1 EACH BLST.W.DEV IH SCH (08:16)
[2019-11-22] MEDS: LINEZOLID 600 MG TABLET PO SCH ×2 (08:17→21:22)
[2019-11-22] MEDS: CLOTRIMAZOLE/BETAMET DIPROP CREAM 15 GM TUBE TOP SCH ×2 (08:18→21:24)
[2019-11-22] MEDS: SODIUM HYPOCHLORITE 0.125% (QUARTER STRENGTH) 473 ML BOTTLE TP SCH (08:18)
[2019-11-22] MEDS: CEFEPIME HCL 1 G in IV DEXTROSE 5% 50 ML IV SCH ×2 (09:36→21:23)
[2019-11-22] MEDS: MAGNESIUM SULFATE/D5W 100 ML IV SCH ×2 (10:31→11:37)
[2019-11-22 11:30] VITALS: BP 156/79
[2019-11-22] MEDS: FLUCONAZOLE 100 MG TABLET PO SCH (16:03)
[2019-11-22] MEDS: ACETAMINOPHEN 325 MG TABLET GT PRN (16:03)
[2019-11-22 17:00] VITALS: BP 124/68
[2019-11-22] MEDS: NYSTATIN/TRIAMCINOLONE CREAM 15 GM TUBE TP SCH (18:05)
--- NOTE | 2019-11-22 18:12 | NUR ---
Patient rested throughout day, patient only alert to self. Patient had a fever, medication administered and cooling measures implemented. Patient tolerating tube feeding no residual. No S/S of acute distress throughout shift. Will endorse to oncoming nurse.
--- NOTE | 2019-11-22 19:10 | NUR ---
Pt in bed, sleeping, easy to arouse. Pt has no s/s of acute distress or pain at this time. V/S stable, on 2L NC tolerating well at 98% Afebrile. Pt's gtube is patent, on Jevity 1.2 running at 50cc. Sykes is intact and draining clear yellow urine. 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 Pt is on special air mattress. Safety measures in place. Bed low and locked in position, side railsx2 up. Call light within reach. Will continue with the plan of care.
[2019-11-22 20:10] VITALS: BP 126/62
[2019-11-22] MEDS: MONTELUKAST SODIUM 10 MG TABLET GT SCH (21:22)
[2019-11-23] MEDS: ACETAMINOPHEN 325 MG TABLET GT PRN (04:33)
[2019-11-23 04:49] VITALS: BP 143/77
[2019-11-23] MEDS: IV 1/2NS 1000 ML 1,000 ML IV PRN (05:47)
--- NOTE | 2019-11-23 06:17 | NUR ---
Pt slept through the night. No s/s of acute distress or pain at this time. Pt had a temperature of 101, medication administered and cooling measures implemented. V/S stable on 2L NC, tolerating well. Jevity 1.2 tube feeding,tolerating well. Currently turned off. 250CC flush administered Q6H. Sykes draining well. Comfort care and needs attended. Wound care provided. Fall and isolation precaution maintained. Safety measures in place. Call light within reach. Will endorse to oncoming nurse accordingly.
[2019-11-23 06:51] LABS: ALANINE AMINOTRANSFERASE 12 U/L (14-59); ALKALINE PHOSPHATASE 99 U/L (50-136); ASPARTATE AMINOTRANSFERASE 16 U/L (15-37); BILIRUBIN,TOTAL 0.4 mg/dL (0.2-1.0); CARBON DIOXIDE 25 mmol/L (21-32); CHLORIDE 102 mmol/L (98-107); CREATININE 1.8 mg/dL (0.6-1.3); GLUCOSE 203 mg/dL (74-106); MAGNESIUM 1.7 mg/dL (1.8-2.4); PHOSPHOROUS 3.3 mg/dL (2.5-4.9); POTASSIUM 4.3 mmol/L (3.5-5.1); UREA NITROGEN, BLOOD 48 mg/dL (7-18)
[2019-11-23 06:55] LABS: BASOPHILS # (AUTO) 0.1 K/uL (0.0-8.0); BASOPHILS % (AUTO) 0.3 % (0.0-2.0); EOSINOPHILS # (AUTO) 0.2 K/uL (0.0-0.7); EOSINOPHILS % (AUTO) 0.9 % (0.0-7.0); HEMATOCRIT 22.7 % (31.2-41.9); HEMOGLOBIN 7.6 g/dL (10.9-14.3); LYMPHOCYTES # (AUTO) 1.5 K/uL (20.0-40.0); LYMPHOCYTES % (AUTO) 7.2 % (20.5-51.5); MEAN CORPUSCULAR HEMOGLOBIN 31.7 uug (24.7-32.8); MEAN CORPUSCULAR HGB CONC 34 g/dL (32.3-35.6); MEAN CORPUSCULAR VOLUME 94.2 fL (75.5-95.3); MONOCYTES % (AUTO) 4.9 % (0.0-11.0); NEUTROPHILS # (AUTO) 17.6 K/uL (1.8-8.9); NEUTROPHILS % (AUTO) 86.7 % (38.5-71.5); PLATELET COUNT (AUTO) 312 K/uL (179-408); WHITE BLOOD COUNT (AUTO) 20.3 K/uL (3.8-11.8)
[2019-11-23 07:00] LABS: RED BLOOD CELL COUNT(AUTO) 2.41 MIL/uL (3.63-4.92)
--- NOTE | 2019-11-23 07:59 | NUR ---
Lab called to report critical lab value for the patient. Albumin level is not 1.2. Report given by Sadia from lab. aware, awaiting response
[2019-11-23] MEDS: PROTEIN SUPPLEMENT (PROSTAT) 30 ML LIQUID GT SCH (08:05)
[2019-11-23 08:27] VITALS: BP 125/60
[2019-11-23] MEDS: FERROUS SULFATE 300 MG/5 ML LIQUID UDC GT SCH (08:51)
[2019-11-23] MEDS: SENNOSIDES 1 TABLET GT SCH ×2 (08:52→17:13)
[2019-11-23] MEDS: CHOLECALCIFEROL 1,000 UNIT TABLET GT SCH (08:52)
[2019-11-23] MEDS: MULTIVITAMINS,THERAPEUTIC TABLET GT SCH (08:52)
[2019-11-23] MEDS: PANTOPRAZOLE ORAL SUSPENSION 40 MG SUSPDR.PKT GT SCH (08:52)
[2019-11-23] MEDS: DOCUSATE SODIUM 100 MG/10 ML LIQUID UDC GT SCH ×2 (08:52→17:13)
[2019-11-23] MEDS: ASCORBIC ACID 500 MG TABLET GT SCH (08:52)
[2019-11-23] MEDS: SODIUM HYPOCHLORITE 0.125% (QUARTER STRENGTH) 473 ML BOTTLE TP SCH (08:53)
[2019-11-23] MEDS: CLOTRIMAZOLE/BETAMET DIPROP CREAM 15 GM TUBE TOP SCH ×2 (08:53→20:19)
[2019-11-23] MEDS: LINEZOLID 600 MG TABLET PO SCH ×2 (08:53→20:18)
[2019-11-23] MEDS: FLUTICASONE/VILANTEROL 1 EACH BLST.W.DEV IH SCH (08:53)
[2019-11-23] MEDS: METOPROLOL TARTRATE 25 MG TABLET GT SCH ×2 (09:01→17:14)
[2019-11-23] MEDS: CEFEPIME HCL 1 G in IV DEXTROSE 5% 50 ML IV SCH (09:02)
--- NOTE | 2019-11-23 09:40 | NUR ---
When trying to administer medication, Patient, PEG tube was clogged. Flushed tube to remove clog and started feeding at 0933 so that the tube will not reclog. Patient is currently running Jevity at 50,mls/hour. Will continue to monitor.
[2019-11-23] MEDS ORDERED: MAGNESIUM SULFATE/D5W 100 ML IV SCH (10:15)
[2019-11-23] MEDS ORDERED: ALBUMIN HUMAN 25% 100 ML IV ONE (13:30)
[2019-11-23] MEDS: SOD FERRIC GLUC COMPLX/SUCROSE 125 MG in IV NORMAL SALINE 100 ML IV SCH (14:22)
[2019-11-23 15:57] VITALS: BP 145/73
[2019-11-23] MEDS: FLUCONAZOLE 100 MG TABLET PO SCH (17:13)
[2019-11-23] MEDS: NYSTATIN/TRIAMCINOLONE CREAM 15 GM TUBE TP SCH (17:38)
--- NOTE | 2019-11-23 18:03 | NUR ---
Received patient resting in bed dozing intermittently. Upper and lower extremities are severely contracted. Patient has IV in right upper arm 24 gauge hep lock and right wrist 22 gauge running 1/2 NS @ 50. Patient also has a PEG tube running Jevity 50 cc and needs to be flushed 250 cc Q6H. and is NPO. Safety precautions are in place with call lights and belongings within reach. Will continue to monitor.
[2019-11-23] MEDS: JEVITY 1.2 1000 ML LIQUID GT PRN (18:37)
--- NOTE | 2019-11-23 19:02 | NUR ---
Patient is left resting in bed, non verbal other then a few phrases when being repositioned or changed. All medications given as ordered and PEG tube flushed with 250 mls/hr. Safety precautions in place with call light and belongings within reach. Will endorse to the oncoming nurse.
--- NOTE | 2019-11-23 19:35 | NUR ---
Received patient resting in bed. NO s/s of acute distress noted at this time. Pt on 1L via NC, no s/s of SOB. Right upper arm 25g patent and intact. Right wrist 22g IV patent and infusing ordered fluids. GTube intact with zero residual upon inspection. Tube feeding running at 50ml/hr. Sykse patent and draining via gravity. Bed locked and low, safety measures in place and will continue to monitor.
[2019-11-23 20:08] VITALS: BP 117/74
[2019-11-23] MEDS: MONTELUKAST SODIUM 10 MG TABLET GT SCH (20:15)
[2019-11-23] MEDS: PANTOPRAZOLE SODIUM 40 MG VIAL IV SCH (20:18)
[2019-11-23] MEDS: METRONIDAZOLE 500 MG TABLET PO SCH (20:18)
[2019-11-23] MEDS ORDERED: MEROPENEM 0.5 G in IV NORMAL SALINE 50 ML IV ONE (21:00)
[2019-11-24 04:10] VITALS: BP 122/67
[2019-11-24] MEDS: IV 1/2NS 1000 ML 1,000 ML IV PRN (04:47)
[2019-11-24 05:19] VITALS: BP 122/67
[2019-11-24] MEDS: METRONIDAZOLE 500 MG TABLET PO SCH ×3 (05:43→21:56)
--- NOTE | 2019-11-24 06:24 | NUR ---
Pt slept through the night. No s/s of acute distress or pain at this time. Afebrile last night. V/S stable on 1L NC, tolerating well. Jevity 1.2 tube feeding,tolerating well. Currently turned off, will resume at 10am. 250CC flush administered Q6H. Sykes draining well. Comfort care and needs attended. Wound care provided. Safety measures in place. Call light within reach. Will endorse to oncoming nurse accordingly.
[2019-11-24 06:46] LABS: CARBON DIOXIDE 22 mmol/L (21-32); CHLORIDE 97 mmol/L (98-107); GLUCOSE 169 mg/dL (74-106); MAGNESIUM 2.2 mg/dL (1.8-2.4); POTASSIUM 3.6 mmol/L (3.5-5.1); UREA NITROGEN, BLOOD 52 mg/dL (7-18)
[2019-11-24 06:53] LABS: BASOPHILS % (AUTO) 0.1 % (0.0-2.0); EOSINOPHILS # (AUTO) 0.4 K/uL (0.0-0.7); EOSINOPHILS % (AUTO) 2.4 % (0.0-7.0); HEMATOCRIT 22.2 % (31.2-41.9); HEMOGLOBIN 7.5 g/dL (10.9-14.3); LYMPHOCYTES # (AUTO) 1.5 K/uL (20.0-40.0); LYMPHOCYTES % (AUTO) 8.3 % (20.5-51.5); MEAN CORPUSCULAR HEMOGLOBIN 31.6 uug (24.7-32.8); MEAN CORPUSCULAR HGB CONC 34 g/dL (32.3-35.6); MEAN CORPUSCULAR VOLUME 93.7 fL (75.5-95.3); MONOCYTES # (AUTO) 0.9 K/uL (2.0-10.0); MONOCYTES % (AUTO) 5.1 % (0.0-11.0); NEUTROPHILS % (AUTO) 84.1 % (38.5-71.5); PLATELET COUNT (AUTO) 332 K/uL (179-408); WHITE BLOOD COUNT (AUTO) 17.8 K/uL (3.8-11.8)
[2019-11-24 06:59] LABS: RED BLOOD CELL COUNT(AUTO) 2.37 MIL/uL (3.63-4.92)
[2019-11-24 07:06] LABS: CREATININE 1.9 mg/dL (0.6-1.3)
--- NOTE | 2019-11-24 07:30 | NUR ---
Awake, confused, on moderate high back rest. O2 at 1L/NC. Spitting out sputum. GTube feedings off. Sykes catheter to drainage bag.
[2019-11-24] MEDS: PROTEIN SUPPLEMENT (PROSTAT) 30 ML LIQUID GT SCH (09:15)
[2019-11-24] MEDS: DOCUSATE SODIUM 100 MG/10 ML LIQUID UDC GT SCH ×2 (09:19→17:27)
[2019-11-24] MEDS: SENNOSIDES 1 TABLET GT SCH ×2 (09:20→17:27)
[2019-11-24] MEDS: ASCORBIC ACID 500 MG TABLET GT SCH (09:20)
[2019-11-24] MEDS: MULTIVITAMINS,THERAPEUTIC TABLET GT SCH (09:20)
[2019-11-24] MEDS: MEROPENEM 500 MG in IV NORMAL SALINE 50 ML IV SCH ×2 (09:20→20:05)
[2019-11-24] MEDS: CHOLECALCIFEROL 1,000 UNIT TABLET GT SCH (09:20)
[2019-11-24] MEDS: LINEZOLID 600 MG TABLET PO SCH (09:21)
[2019-11-24] MEDS: PANTOPRAZOLE SODIUM 40 MG VIAL IV SCH ×2 (09:21→20:05)
[2019-11-24] MEDS: FLUTICASONE/VILANTEROL 1 EACH BLST.W.DEV IH SCH (10:11)
[2019-11-24] MEDS: METOPROLOL TARTRATE 25 MG TABLET GT SCH ×2 (10:11→17:27)
[2019-11-24] MEDS: CLOTRIMAZOLE/BETAMET DIPROP CREAM 15 GM TUBE TOP SCH ×2 (10:12→20:07)
[2019-11-24] MEDS: SODIUM HYPOCHLORITE 0.125% (QUARTER STRENGTH) 473 ML BOTTLE TP SCH (10:12)
--- NOTE | 2019-11-24 11:00 | NUR ---
Wound care done. Bed bath done. Repositioned in bed comfortably.
[2019-11-24 11:44] VITALS: BP 121/68
[2019-11-24] MEDS: SOD FERRIC GLUC COMPLX/SUCROSE 125 MG in IV NORMAL SALINE 100 ML IV SCH (14:50)
[2019-11-24] MEDS: IV NS 1000 ML 1,000 ML IV PRN (15:05)
--- NOTE | 2019-11-24 15:05 | NUR ---
IVF NS started as ordered. Oral care, secretions suctions with greenish secretion through nasal.
[2019-11-24] MEDS: FLUCONAZOLE 100 MG TABLET PO SCH (15:06)
[2019-11-24 15:34] VITALS: BP 143/56
--- NOTE | 2019-11-24 18:27 | NUR ---
Covid PCR negative, transferred to Room 306. Repositioned in bed comfortably.
--- NOTE | 2019-11-24 19:30 | NUR ---
RECEIVED PT IN NO ACUTE DISTRESS.IV INTACT. PT ON 0.5 NASAL CANNULA. PT ON BACA CATHETER AND DWELLING WELL. PT ON FIRST STEP MATTRESS. SAFETY AND COMFORT PROVIDED. WILL CONTINUE TO MONITOR.
[2019-11-24] MEDS ORDERED: VANCOMYCIN IV 500 MG in IV DEXTROSE 5% 100 ML IV ONE (20:00)
[2019-11-24 20:04] VITALS: BP 131/57
[2019-11-24] MEDS: MONTELUKAST SODIUM 10 MG TABLET GT SCH (20:05)
[2019-11-24] MEDS: ACETAMINOPHEN 325 MG TABLET GT PRN (20:08)
[2019-11-24] MEDS: JEVITY 1.2 1000 ML LIQUID GT PRN (23:01)
[2019-11-25] VITALS (10 sets, daily range): BP systolic 122–164; BP diastolic 63–84
[2019-11-25] MEDS: ACETAMINOPHEN 325 MG TABLET GT PRN ×3 (04:06→20:42)
[2019-11-25] MEDS: METRONIDAZOLE 500 MG TABLET PO SCH ×3 (05:39→21:17)
[2019-11-25 06:25] LABS: BASOPHILS % (AUTO) 0.3 % (0.0-2.0); EOSINOPHILS # (AUTO) 0.5 K/uL (0.0-0.7); EOSINOPHILS % (AUTO) 3.4 % (0.0-7.0); LYMPHOCYTES # (AUTO) 1.5 K/uL (20.0-40.0); MEAN CORPUSCULAR HEMOGLOBIN 31.5 uug (24.7-32.8); MEAN CORPUSCULAR HGB CONC 34 g/dL (32.3-35.6); MEAN CORPUSCULAR VOLUME 93.2 fL (75.5-95.3); MONOCYTES # (AUTO) 0.8 K/uL (2.0-10.0); MONOCYTES % (AUTO) 5.8 % (0.0-11.0); NEUTROPHILS # (AUTO) 10.6 K/uL (1.8-8.9); NEUTROPHILS % (AUTO) 79.5 % (38.5-71.5); PLATELET COUNT (AUTO) 368 K/uL (179-408); WHITE BLOOD COUNT (AUTO) 13.4 K/uL (3.8-11.8)
[2019-11-25 06:26] LABS: ALANINE AMINOTRANSFERASE 9 U/L (14-59); ALKALINE PHOSPHATASE 87 U/L (50-136); ASPARTATE AMINOTRANSFERASE 15 U/L (15-37); BILIRUBIN,TOTAL 0.3 mg/dL (0.2-1.0); CARBON DIOXIDE 23 mmol/L (21-32); CHLORIDE 95 mmol/L (98-107); CREATININE 1.8 mg/dL (0.6-1.3); GLUCOSE 128 mg/dL (74-106); POTASSIUM 3.6 mmol/L (3.5-5.1); TOTAL PROTEIN, SERUM 5.9 g/dL (6.4-8.2); UREA NITROGEN, BLOOD 52 mg/dL (7-18); VANCOMYCIN,RANDOM 10.9 ug/mL (18.0-26.0)
[2019-11-25 06:31] LABS: RED BLOOD CELL COUNT(AUTO) 2.25 MIL/uL (3.63-4.92)
[2019-11-25 06:32] LABS: HEMOGLOBIN 7.1 g/dL (10.9-14.3)
--- NOTE | 2019-11-25 06:37 | NUR ---
PT TURNED AND REPOSITIONED. WOUND DRESSING DONE. PT GIVEN TYLENOL AT 2008H and 0406 FOR PT IS MOANING AND HAS FACIAL GRIMACE. AFTER AN HOUR PT IS MORE CALMER AND SLEPT COMFORTABLY.Stool ob sent to lab. SAFETY AND COMFORT PROVIDED. ALL NEEDS ARE MET. WILL ENDORSE TO INCOMING NURSE FOR CONTINUITY OF CARE.
--- NOTE | 2019-11-25 06:38 | NUR ---
Pt currently resting in bed on 0.5L/min NC. In no acute distress. Does not appear to have any discomfort. Safety precautions initiated per protocol. Bed is in lowest position. Spoke with Kristopher from lab at 0635 regarding critical labs. Hgb: 7.1 and albumin 1.3
[2019-11-25 06:42] LABS: *OCCULT BLOOD STOOL NEGATIVE (NEGATIVE)
--- NOTE | 2019-11-25 08:00 | NUR ---
awake alert and talking inappropriately, no ss of pain or distress. on RA saturating 100%. tolerating feeding well
[2019-11-25] MEDS: MEROPENEM 500 MG in IV NORMAL SALINE 50 ML IV SCH ×2 (08:42→21:16)
[2019-11-25] MEDS: DOCUSATE SODIUM 100 MG/10 ML LIQUID UDC GT SCH ×2 (08:43→16:56)
[2019-11-25] MEDS: PANTOPRAZOLE SODIUM 40 MG VIAL IV SCH ×2 (08:43→21:17)
[2019-11-25] MEDS: MULTIVITAMINS,THERAPEUTIC TABLET GT SCH (08:44)
[2019-11-25] MEDS: SENNOSIDES 1 TABLET GT SCH ×2 (08:44→16:57)
[2019-11-25] MEDS: ASCORBIC ACID 500 MG TABLET GT SCH (08:44)
[2019-11-25] MEDS: CHOLECALCIFEROL 1,000 UNIT TABLET GT SCH (08:44)
[2019-11-25] MEDS: METOPROLOL TARTRATE 25 MG TABLET GT SCH ×2 (08:44→16:57)
[2019-11-25] MEDS: SODIUM HYPOCHLORITE 0.125% (QUARTER STRENGTH) 473 ML BOTTLE TP SCH (08:45)
[2019-11-25] MEDS: CLOTRIMAZOLE/BETAMET DIPROP CREAM 15 GM TUBE TOP SCH ×2 (08:45→20:22)
[2019-11-25] MEDS: PROTEIN SUPPLEMENT (PROSTAT) 30 ML LIQUID GT SCH (08:46)
[2019-11-25] MEDS: FLUTICASONE/VILANTEROL 1 EACH BLST.W.DEV IH SCH (08:46)
[2019-11-25] MEDS: Z GUARD REMEDY PASTE 57 GM TUBE TOP PRN (08:47)
--- NOTE | 2019-11-25 08:47 | NUR ---
inhaler not given patient unable to follow instruction
[2019-11-25] MEDS ORDERED: ALBUMIN HUMAN 25% 100 ML IV ONE (10:00)
--- NOTE | 2019-11-25 13:00 | NUR ---
SEEN BY HOSPITALIST Olman GAN SEE NOTES.
[2019-11-25] MEDS: SOD FERRIC GLUC COMPLX/SUCROSE 125 MG in IV NORMAL SALINE 100 ML IV SCH (13:33)
[2019-11-25] MEDS: VANCOMYCIN IV 750 MG in IV DEXTROSE 5% 250 ML IV SCH (16:58)
--- NOTE | 2019-11-25 18:39 | NUR ---
BLOOD TRANSFUSION STARTED AND CLOSELY MONITORED
--- NOTE | 2019-11-25 18:54 | NUR ---
NO SS OF BLOOD TRANSFUSION REACTION NOTED, CONTINUE TX AND OBSERVATION
--- NOTE | 2019-11-25 19:00 | NUR ---
Patient resting in bed. Ongoing blood transfusion. No adverse affected have been noted and patient is stable.
[2019-11-25] MEDS: MONTELUKAST SODIUM 10 MG TABLET GT SCH (20:21)
--- NOTE | 2019-11-25 20:42 | NUR ---
Patient given tylenol 650mg to help minimize discomfort based on facial grimacing. Patient tolerated medication well. Blood transfusion is still ongoing.
[2019-11-25] MEDS: hydrALAZINE HCL 20 MG/1 ML VIAL IV PRN (21:56)
--- NOTE | 2019-11-25 21:56 | NUR ---
Blood transfusion ended at 2142H. No adverse reactions seen and patient is stable. B/P is 161/82 gave Apresolone 10mg IV. Will continue to monitor.
[2019-11-25] MEDS: JEVITY 1.2 1000 ML LIQUID GT PRN (22:00)
--- NOTE | 2019-11-25 23:00 | NUR ---
Patient B/P lowered to 150/69. Will continue to monitor.
[2019-11-26 04:04] VITALS: BP 145/45
[2019-11-26] MEDS: ACETAMINOPHEN 325 MG TABLET GT PRN (04:29)
[2019-11-26] MEDS: METRONIDAZOLE 500 MG TABLET PO SCH ×3 (05:47→21:11)
--- NOTE | 2019-11-26 06:32 | NUR ---
Patient asleep in bed throughout the night with no complaints. Patient is on RA with no s/s of respiratory distress. Pt does not appear to be in any acute distress at this time. IV intact R hand 22 gauge infusing NS at 50cc/hr. Patient tolerated all medications given throughout the shift. Turned Q2H. Wound dressing done. Given prn Tylenol 650mg at 0429 from pts report of pain. GT flushed with 250cc of water. Bed is locked and in lowest position.
[2019-11-26 08:02] LABS: HEMOGLOBIN 9.2 g/dL (10.9-14.3)
[2019-11-26] MEDS: PANTOPRAZOLE SODIUM 40 MG VIAL IV SCH ×2 (08:10→20:07)
[2019-11-26] MEDS: DOCUSATE SODIUM 100 MG/10 ML LIQUID UDC GT SCH ×2 (08:10→16:25)
[2019-11-26] MEDS: MEROPENEM 500 MG in IV NORMAL SALINE 50 ML IV SCH ×2 (08:10→20:07)
[2019-11-26] MEDS: MULTIVITAMINS,THERAPEUTIC TABLET GT SCH (08:10)
[2019-11-26] MEDS: SENNOSIDES 1 TABLET GT SCH ×2 (08:11→16:25)
[2019-11-26] MEDS: ASCORBIC ACID 500 MG TABLET GT SCH (08:11)
[2019-11-26] MEDS: CHOLECALCIFEROL 1,000 UNIT TABLET GT SCH (08:11)
[2019-11-26] MEDS: PROTEIN SUPPLEMENT (PROSTAT) 30 ML LIQUID GT SCH (08:13)
[2019-11-26] MEDS: IV NS 1000 ML 1,000 ML IV PRN (08:14)
[2019-11-26] MEDS: FLUTICASONE/VILANTEROL 1 EACH BLST.W.DEV IH SCH (08:15)
[2019-11-26] MEDS: METOPROLOL TARTRATE 25 MG TABLET GT SCH ×2 (08:19→16:20)
[2019-11-26] MEDS: CLOTRIMAZOLE/BETAMET DIPROP CREAM 15 GM TUBE TOP SCH ×2 (08:29→20:07)
--- NOTE | 2019-11-26 08:30 | NUR ---
RECEIVED PATIENT ASLEEP IN BED, AROUSABLE BY NAME AND TOUCH. AOX1, UNABLE TO FOLLOW COMMAND. VSS. NO S/S OF SOB OR DISTRESS NOTED AT THIS TIME. BACA CATHETER IN PLACE AND PATENT. G TUBE IN PLACE AND PATENT, RUNNING PER MD ORDER. REPOSITIONED AND NOTED B/L HEEL DRESSING, DRY AND INTACT. RIGHT HIP DRESSING DRY AND INTACT. PATIENT ON AIR MATTRESS FOR PRESSURE INJURY PRECAUTION. IV ON RIGHT HAND 22 G AND LEFT HAND 20 G, FLUSHED AND PATENT. NS RUNNING PER MD ORDER. SAFETY PRECAUTION IN PLACE. WILL CONTINUE TO MONITOR.
[2019-11-26] MEDS: SODIUM HYPOCHLORITE 0.125% (QUARTER STRENGTH) 473 ML BOTTLE TP SCH (08:31)
[2019-11-26] MEDS: Z GUARD REMEDY PASTE 57 GM TUBE TOP PRN (08:32)
[2019-11-26 11:10] LABS: BASOPHILS % (AUTO) 0.2 % (0.0-2.0); EOSINOPHILS # (AUTO) 0.2 K/uL (0.0-0.7); HEMOGLOBIN 9.7 g/dL (10.9-14.3); LYMPHOCYTES # (AUTO) 1.1 K/uL (20.0-40.0); LYMPHOCYTES % (AUTO) 6.5 % (20.5-51.5); MEAN CORPUSCULAR HGB CONC 33 g/dL (32.3-35.6); MEAN CORPUSCULAR VOLUME 89.7 fL (75.5-95.3); MONOCYTES # (AUTO) 0.9 K/uL (2.0-10.0); MONOCYTES % (AUTO) 5.3 % (0.0-11.0); NEUTROPHILS # (AUTO) 14.4 K/uL (1.8-8.9); PLATELET COUNT (AUTO) 483 K/uL (179-408); RED BLOOD CELL COUNT(AUTO) 3.23 MIL/uL (3.63-4.92); WHITE BLOOD COUNT (AUTO) 16.6 K/uL (3.8-11.8)
[2019-11-26 11:16] LABS: ALANINE AMINOTRANSFERASE 10 U/L (14-59); ALKALINE PHOSPHATASE 98 U/L (50-136); ASPARTATE AMINOTRANSFERASE 16 U/L (15-37); BILIRUBIN,TOTAL 0.4 mg/dL (0.2-1.0); CARBON DIOXIDE 23 mmol/L (21-32); CHLORIDE 98 mmol/L (98-107); CREATININE 1.8 mg/dL (0.6-1.3); GLUCOSE 213 mg/dL (74-106); MAGNESIUM 1.7 mg/dL (1.8-2.4); PHOSPHOROUS 3.2 mg/dL (2.5-4.9); POTASSIUM 3.3 mmol/L (3.5-5.1); TOTAL PROTEIN, SERUM 6.8 g/dL (6.4-8.2); UREA NITROGEN, BLOOD 48 mg/dL (7-18)
[2019-11-26 11:53] VITALS: BP 152/80
[2019-11-26] MEDS ORDERED: MAGNESIUM SULFATE/D5W 100 ML IV SCH (12:45)
[2019-11-26] MEDS ORDERED: POTASSIUM CHLORIDE 20 MEQ POWDER PACKET GT ONE (12:45)
--- NOTE | 2019-11-26 14:43 | NUR ---
MIDLINE INSERTION COMPLETED AT BEDSIDE. PATIENT TOLERATED WELL
[2019-11-26] MEDS: SOD FERRIC GLUC COMPLX/SUCROSE 125 MG in IV NORMAL SALINE 100 ML IV SCH (14:50)
[2019-11-26 16:45] VITALS: BP 166/86
--- NOTE | 2019-11-26 19:10 | NUR ---
Pt in bed, sleeping, easy to arouse. No s/s of acute distress or pain at this time. V/S stable on room air. BEATA midline is intact with NS running at 50cc. Pt has olivo and draining clear yellow urine. Gtube is intact with Jevity 1.2 running at 50cc, pt tolerating well. Pt is on contact isolation for MRSA on the R. hip wound. Safety measures in place. Bed low and locked in position. Call light within reach. Will continue with the plan of care.
[2019-11-26] MEDS: MONTELUKAST SODIUM 10 MG TABLET GT SCH (20:07)
[2019-11-26 20:18] VITALS: BP 153/66
[2019-11-27] MEDS: JEVITY 1.2 1000 ML LIQUID GT PRN (01:11)
[2019-11-27 05:17] VITALS: BP 139/68
[2019-11-27] MEDS: VANCOMYCIN IV 750 MG in IV DEXTROSE 5% 250 ML IV SCH (05:24)
[2019-11-27] MEDS: METRONIDAZOLE 500 MG TABLET PO SCH ×3 (05:25→17:47)
[2019-11-27 06:19] LABS: BASOPHILS # (AUTO) 0.1 K/uL (0.0-8.0); BASOPHILS % (AUTO) 0.5 % (0.0-2.0); EOSINOPHILS # (AUTO) 0.3 K/uL (0.0-0.7); EOSINOPHILS % (AUTO) 2.5 % (0.0-7.0); HEMATOCRIT 28.2 % (31.2-41.9); HEMOGLOBIN 9.7 g/dL (10.9-14.3); LYMPHOCYTES # (AUTO) 1.8 K/uL (20.0-40.0); LYMPHOCYTES % (AUTO) 14.4 % (20.5-51.5); MEAN CORPUSCULAR HGB CONC 34 g/dL (32.3-35.6); MEAN CORPUSCULAR VOLUME 90.7 fL (75.5-95.3); MONOCYTES # (AUTO) 0.9 K/uL (2.0-10.0); MONOCYTES % (AUTO) 7.4 % (0.0-11.0); NEUTROPHILS # (AUTO) 9.4 K/uL (1.8-8.9); NEUTROPHILS % (AUTO) 75.2 % (38.5-71.5); PLATELET COUNT (AUTO) 479 K/uL (179-408); RED BLOOD CELL COUNT(AUTO) 3.11 MIL/uL (3.63-4.92); WHITE BLOOD COUNT (AUTO) 12.5 K/uL (3.8-11.8)
--- NOTE | 2019-11-27 06:56 | NUR ---
Pt stable throughout the shift. No s/s of acute distress noted. V/S stable on room air. Comfort care and needs attended. Fall and isolation precaution maintained. Safety measures in place. Call light within reach. Will endorse to oncoming nurse accordingly.
[2019-11-27 07:18] LABS: CARBON DIOXIDE 22 mmol/L (21-32); CHLORIDE 103 mmol/L (98-107); CREATININE 1.7 mg/dL (0.6-1.3); GLUCOSE 143 mg/dL (74-106); POTASSIUM 3.8 mmol/L (3.5-5.1); UREA NITROGEN, BLOOD 48 mg/dL (7-18)
[2019-11-27 08:00] VITALS: BP 149/64
[2019-11-27] MEDS: PROTEIN SUPPLEMENT (PROSTAT) 30 ML LIQUID GT SCH (08:30)
[2019-11-27] MEDS: SENNOSIDES 1 TABLET GT SCH ×2 (09:00→17:00)
[2019-11-27] MEDS: DOCUSATE SODIUM 100 MG/10 ML LIQUID UDC GT SCH ×2 (09:00→17:00)
[2019-11-27] MEDS: CHOLECALCIFEROL 1,000 UNIT TABLET GT SCH (09:01)
[2019-11-27] MEDS: PANTOPRAZOLE SODIUM 40 MG VIAL IV SCH (09:01)
[2019-11-27] MEDS: ASCORBIC ACID 500 MG TABLET GT SCH (09:01)
[2019-11-27] MEDS: MULTIVITAMINS,THERAPEUTIC TABLET GT SCH (09:01)
[2019-11-27] MEDS: SODIUM HYPOCHLORITE 0.125% (QUARTER STRENGTH) 473 ML BOTTLE TP SCH (09:02)
[2019-11-27] MEDS: MEROPENEM 500 MG in IV NORMAL SALINE 50 ML IV SCH (09:02)
[2019-11-27] MEDS: CLOTRIMAZOLE/BETAMET DIPROP CREAM 15 GM TUBE TOP SCH (09:03)
[2019-11-27] MEDS: FLUTICASONE/VILANTEROL 1 EACH BLST.W.DEV IH SCH (09:03)
[2019-11-27] MEDS: METOPROLOL TARTRATE 25 MG TABLET GT SCH ×2 (09:28→17:46)
--- NOTE | 2019-11-27 09:30 | NUR ---
Pt's gtube clogged, multiple attempts to declog, also by different nurses. Unable to give AM meds and stopped feeding at this time. Hospitalist made aware. Will retry again later
[2019-11-27 11:37] LABS: PHOSPHOROUS 3.2 mg/dL (2.5-4.9)
[2019-11-27 12:00] VITALS: BP 148/81
[2019-11-27] MEDS ORDERED: RXVAN XX (12:49)
[2019-11-27] MEDS ORDERED: SENN-261 GT (12:49)
[2019-11-27] MEDS ORDERED: SODI473S8 TP (12:49)
[2019-11-27] MEDS ORDERED: PROT30LI GT (12:49)
[2019-11-27] MEDS ORDERED: VANC1PLA9 IV (12:49)
[2019-11-27] MEDS ORDERED: MERO500V21 IV (12:49)
[2019-11-27] MEDS ORDERED: LACT-209 GT (12:49)
[2019-11-27] MEDS ORDERED: HYDR-3972 GT (12:49)
--- NOTE | 2019-11-27 14:30 | NUR ---
Pt's Gtube still clogged, Miranda Barriga hospitalist at bedside to assess
[2019-11-27] MEDS: SOD FERRIC GLUC COMPLX/SUCROSE 125 MG in IV NORMAL SALINE 100 ML IV SCH (14:36)
--- NOTE | 2019-11-27 14:37 | NUR ---
Patient had a loose watery stool, cleaned and changed, will hold stool softeners
[2019-11-27 16:47] VITALS: BP 155/69
--- NOTE | 2019-11-27 17:00 | NUR ---
Gtube declogged, resumed feeding and gave medications. Hospitalist aware
[2019-11-27 20:18] VITALS: BP 156/75
--- NOTE | 2019-11-27 20:18 | NUR ---
Patient left via ambulance. No s/s of acute distress. Latest VS BP 156/75 HR 78 T 98.1 O2 97% RA. Sykes patent draining via gravity. Gtube patent with 0 residual. Right upper arm midline patent and intact. All wound dressings changed and clean. Report given to postal worker
== END 2019-11-27 20:18 | disposition home health service (06) | DRG 853 ==
LOC: ER 11:48 → MEDSURG3 19:49 → TELE3 20:31 → MEDSURG3 11-16 14:48
PROVIDERS: ADMIT Student in an Organized Health Care Education/Training Program; ATTEND Nurse Practitioner Acute Care
PROC: 0KBN0ZZ Excision of Right Hip Muscle, Open Approach (ICD-10-PCS; principal; 2019-11-15)
PROC: 0KBN0ZZ Excision of Right Hip Muscle, Open Approach (ICD-10-PCS; 2019-11-21)
PROC: 0KBN0ZZ Excision of Right Hip Muscle, Open Approach (ICD-10-PCS; 2019-11-21)
PROC: 30233N1 Transfusion of Nonautologous Red Blood Cells into Peripheral Vein, Percutaneous Approach (ICD-10-PCS; 2019-11-25)
PROC: 05HY33Z Insertion of Infusion Device into Upper Vein, Percutaneous Approach (ICD-10-PCS; 2019-11-26)
DX: A41.9 Sepsis, unspecified organism (principal); L89.313 Pressure ulcer of right buttock, stage 3; L89.214 Pressure ulcer of right hip, stage 4; E43 Unspecified severe protein-calorie malnutrition; G92 Toxic encephalopathy; N17.0 Acute kidney failure with tubular necrosis; K22.6 Gastro-esophageal laceration-hemorrhage syndrome; B37.49 Other urogenital candidiasis; E87.1 Hypo-osmolality and hyponatremia; Z68.1 Body mass index [BMI] 19.9 or less, adult; D68.69 Other thrombophilia; L97.419 Non-pressure chronic ulcer of right heel and midfoot with unspecified severity; L97.429 Non-pressure chronic ulcer of left heel and midfoot with unspecified severity; G95.89 Other specified diseases of spinal cord; G81.94 Hemiplegia, unspecified affecting left nondominant side; K56.41 Fecal impaction; E11.621 Type 2 diabetes mellitus with foot ulcer; D63.8 Anemia in other chronic diseases classified elsewhere; E11.40 Type 2 diabetes mellitus with diabetic neuropathy, unspecified; E83.39 Other disorders of phosphorus metabolism; E83.42 Hypomagnesemia; E86.1 Hypovolemia; E78.5 Hyperlipidemia, unspecified; E87.6 Hypokalemia; F32.9 Major depressive disorder, single episode, unspecified; M24.561 Contracture, right knee; M24.562 Contracture, left knee; N18.30 Chronic kidney disease, stage 3 unspecified; M48.02 Spinal stenosis, cervical region; J45.909 Unspecified asthma, uncomplicated; I12.9 Hypertensive chronic kidney disease with stage 1 through stage 4 chronic kidney disease, or unspecified chronic kidney disease; L30.4 Erythema intertrigo; F01.50 Vascular dementia, unspecified severity, without behavioral disturbance, psychotic disturbance, mood disturbance, and anxiety; Z93.1 Gastrostomy status; Z87.820 Personal history of traumatic brain injury; Z79.4 Long term (current) use of insulin; D47.3 Essential (hemorrhagic) thrombocythemia; E88.09 Other disorders of plasma-protein metabolism, not elsewhere classified; L89.226 Pressure-induced deep tissue damage of left hip; M62.50 Muscle wasting and atrophy, not elsewhere classified, unspecified site; E03.9 Hypothyroidism, unspecified; T36.8X5A Adverse effect of other systemic antibiotics, initial encounter; Y92.89 Other specified places as the place of occurrence of the external cause; E11.22 Type 2 diabetes mellitus with diabetic chronic kidney disease
CPT/HCPCS: 36415; 70030-TC; 70450; 71045; 73502; 73706; 74018; 82533; 83605; 83690; 83735; 84100; 84156; 84300; 84443; 84481; 84550; 85018; 85025; 85651; 85730; 86140; 86850; 86900; 86901; 86920; 87040; 87070; 87077; 87086; 93005; A4217; A4663; C9113; G0378; J0360; J0692; J0696; J0770; J1450; J1650; J1815; J2060; J2185; J2405; J2916; J3370; J3475; J3490; J7030; J7042; J7050; J7060; P9016-BL; P9021; P9047; Q9967; U0003

== ENCOUNTER 2019-12-07 16:20 | Emergency (ER) | payer MEDICARE, OTHER ==
[~2019-12-07] VITALS: Ht 152.4 cm; Wt 43.1 kg
[~2019-12-07 16:20] MED LIST changes: +ACET-2154 PO; +APIX5TAB GT; +ASCO500C16 GT; -BISA-57 PO; +BISA10SU61 RC; -BUDE10.2 IH; +CHOL10002 GT; -DOCU-141 PO; +DOCUSATE-SENNA GT; +ESCI5TAB GT; -ESOM40CA PO; -EZET10TA15 PO; +FERR325T28 GT; +FLUT1BLS IH; -HEPA500034 SUBCUT; +HYDR-3972 GT; +INSU100C SQ; -INSU100V7 SQ; +LACT-209 GT; +LANS15CA13 GT; +LEVO500T90 GT; -LOSA1TAB42 PO; -LUBI24CA5 PO; +MERO500V21 IV; -METH-406 PO; +METO25TA6 GT; +MIRT15TA7 GT; +MULT-213 GT; +NYST15CR2 TP; -OXYC10TA49 PO; -OXYC5TAB3 PO; +POLY17PO4 GT; -POLY17PO4 PO; +PROT30LI GT; +QUET25TA GT; +RXVAN XX; +SENN-261 GT; -SIMV-49 PO; -SITA50TA PO; +SODI473S8 TP; +VANC1PLA9 IV
--- NOTE | 2019-12-07 16:20 | NUR ---
Dr. Mcelroy at bedside for MSE
--- NOTE | 2019-12-07 16:35 | NUR ---
G-tube flushed and patent. no resistance noted Sykes cather flushed with sterile water. no resistance noted
[2019-12-07] MEDS ORDERED: METFORMIN (16:42)
[2019-12-07] MEDS ORDERED: PREVACID (16:42)
[2019-12-07] MEDS ORDERED: HYZAAR (16:42)
[2019-12-07] MEDS ORDERED: ZOCOR (16:42)
[2019-12-07] MEDS ORDERED: SINGULAR (16:42)
[2019-12-07] MEDS ORDERED: CELEBREX (16:42)
--- NOTE | 2019-12-07 16:43 | NUR ---
CAN NOT OBTAIN INFORMATION ABOUT PT's HOME MEDICATION AT THIS TIME. PT CAREGIVER IS GOING TO BRING PT's HOME MED LIST LATER.
--- NOTE | 2019-12-07 17:32 | NUR ---
Patient picked up by [facility] unit 148 in stable condition. all belongings with patient. Patient discharged to home in stable condition. Written and verbal after care instructions given.
[2019-12-07 17:37] VITALS: BP 150/72
== END 2019-12-07 17:32 | disposition home or self-care (01) ==
LOC: ER 16:21
DX: K94.23 Gastrostomy malfunction (principal); Z43.6 Encounter for attention to other artificial openings of urinary tract; Z74.01 Bed confinement status; G30.9 Alzheimer's disease, unspecified; F02.80 Dementia in other diseases classified elsewhere, unspecified severity, without behavioral disturbance, psychotic disturbance, mood disturbance, and anxiety; Z87.820 Personal history of traumatic brain injury; L89.622 Pressure ulcer of left heel, stage 2; L89.612 Pressure ulcer of right heel, stage 2; L89.152 Pressure ulcer of sacral region, stage 2; E11.22 Type 2 diabetes mellitus with diabetic chronic kidney disease; I12.9 Hypertensive chronic kidney disease with stage 1 through stage 4 chronic kidney disease, or unspecified chronic kidney disease; N18.9 Chronic kidney disease, unspecified; J45.909 Unspecified asthma, uncomplicated; F32.9 Major depressive disorder, single episode, unspecified
CPT/HCPCS: A4663

== ENCOUNTER 2019-12-10 10:34 | Inpatient (IN) | payer MEDICARE, OTHER ==
[~2019-12-10] VITALS: Ht 152.4 cm; Wt 49.7 kg
[~2019-12-10 10:34] MED LIST changes: -ASCO500C16 GT; +ASCO500C6 GT; +CELEBREX; +HYZAAR; +METFORMIN; +PREVACID; +SINGULAR; +ZOCOR
--- NOTE | 2019-12-10 10:44 | NUR ---
Patient is seen scratching her R hip & R buttocks with her R nails. Bordered dressings applied to R hip pressure sore & to R hip abraded skin.
[2019-12-10] MEDS ORDERED: IV NORMAL SALINE 1000 ML BAG IV ONE ×2 (11:00→13:00)
--- NOTE | 2019-12-10 11:01 | NUR ---
Extra pillows to pressure points with comfort and safety measures maintained.
[2019-12-10 11:27] LABS: BASOPHILS # (AUTO) 0.1 K/uL (0.0-8.0); BASOPHILS % (AUTO) 0.7 % (0.0-2.0); EOSINOPHILS % (AUTO) 0.2 % (0.0-7.0); HEMATOCRIT 33.8 % (31.2-41.9); HEMOGLOBIN 11.4 g/dL (10.9-14.3); LYMPHOCYTES # (AUTO) 1.3 K/uL (20.0-40.0); LYMPHOCYTES % (AUTO) 7.2 % (20.5-51.5); MEAN CORPUSCULAR HEMOGLOBIN 31.6 uug (24.7-32.8); MEAN CORPUSCULAR HGB CONC 34 g/dL (32.3-35.6); MONOCYTES # (AUTO) 1.2 K/uL (2.0-10.0); MONOCYTES % (AUTO) 6.5 % (0.0-11.0); NEUTROPHILS # (AUTO) 15.2 K/uL (1.8-8.9); NEUTROPHILS % (AUTO) 85.4 % (38.5-71.5); PLATELET COUNT (AUTO) 385 K/uL (179-408); WHITE BLOOD COUNT (AUTO) 17.8 K/uL (3.8-11.8)
[2019-12-10 11:29] LABS: CARBON DIOXIDE 37 mmol/L (21-32); CHLORIDE 100 mmol/L (98-107); CREATININE 1.5 mg/dL (0.6-1.3); GLUCOSE 214 mg/dL (74-106); POTASSIUM 3.5 mmol/L (3.5-5.1); UREA NITROGEN, BLOOD 49 mg/dL (7-18)
[2019-12-10 11:35] LABS: ALANINE AMINOTRANSFERASE 16 U/L (14-59); ALKALINE PHOSPHATASE 96 U/L (50-136); ASPARTATE AMINOTRANSFERASE 21 U/L (15-37); BILIRUBIN,DIRECT 0.1 mg/dL (0.0-0.2); BILIRUBIN,TOTAL 0.3 mg/dL (0.2-1.0); LIPASE 190 U/L (73-393); TOTAL PROTEIN, SERUM 7.7 g/dL (6.4-8.2)
[2019-12-10 12:13] LABS: *BILIRUBIN,URIN NEGATIVE (NEGATIVE); *BLOOD, URINE 2+ (NEGATIVE); *CLARITY,URINE CLOUDY (CLEAR); *COLOR,URINE YELLOW (YELLOW); *KETONES,URINE NEGATIVE (NEGATIVE); *UROBILINOGEN,URINE 0.2 E.U./dl (NORMAL); LEUKOCYTE ESTERASE ,URINE 3+ (NEGATIVE); NITRITE, URINE NEGATIVE (NEGATIVE); UGLUCOSE TRACE (NEGATIVE)
[2019-12-10] MEDS ORDERED: HYDROCODONE/APAP 5-325MG TABLET PO PRN (12:45)
[2019-12-10] MEDS ORDERED: Z GUARD REMEDY PASTE 57 GM TUBE TOP PRN ×2 (12:45→13:15)
[2019-12-10] MEDS ORDERED: IV NS 1000 ML 1,000 ML IV PRN (12:45)
[2019-12-10 13:27] VITALS: BP 149/74
[2019-12-10 16:11] LABS: BACTERIA,URINE MODERATE /HPF (NONE SEEN); SQUAMOUS EPITHELIAL CELL,UR FEW /HPF (NONE SEEN); WBC,URINE 20-50 /HPF (0-3); YEAST,URINE MODERATE /HPF (NONE SEEN)
[2019-12-10 16:15] VITALS: BP 154/86
[2019-12-10] MEDS ORDERED: CEFTRIAXONE 1 G in IV DEXTROSE 5% 50 ML IV SCH (16:45)
[2019-12-10] MEDS ORDERED: DEXTROSE 50% 50 ML DISP.SYRIN IV PRN (17:00)
[2019-12-10] MEDS: QUETIAPINE FUMARATE 25 MG TABLET GT SCH (17:23)
[2019-12-10] MEDS: METOPROLOL TARTRATE 25 MG TABLET GT SCH (17:23)
[2019-12-10] MEDS: SENNOSIDES 1 TABLET GT SCH (17:23)
[2019-12-10] MEDS: BLOOD SUGAR DIAGNOSTIC 1 EACH STRIP VI SCH ×2 (17:47→23:54)
[2019-12-10] MEDS: NYSTATIN/TRIAMCINOLONE CREAM 15 GM TUBE TP SCH (17:48)
[2019-12-10] MEDS ORDERED: PIPERACILLIN SODIUM/TAZOBACTAM 3.375 G in IV DEXTROSE 5% 50 ML IV SCH (18:00)
--- NOTE | 2019-12-10 19:06 | NUR ---
Admission of a 79 year old female under the care of Doctor Cristofer for Sepsis and Urinary tract infection. Arturo Pepe RN
--- NOTE | 2019-12-10 19:11 | NUR ---
Handoff with RYDER Ying. Arturo Pepe RN
--- NOTE | 2019-12-10 19:15 | NUR ---
Pt in bed. No s/s of acute distress or pain noted. V/S stable on room air. NSR on tele monitor. BEATA midline is intact. Sykes draining well with cloudy yellow urine. Pt has Gtube that is dry and intact with Jevity 1.2 at 10cc. Pt is noted to have some excoriations on the sacral area and kari. heels. Safety measures in place. Bed low and locked in position, Call light within reach. Will continue to monitor.
[2019-12-10 20:00] VITALS: BP 158/86
[2019-12-10] MEDS ORDERED: VANCOMYCIN IV 1,000 MG in IV DEXTROSE 5% 250 ML IV ONE (20:15)
[2019-12-10] MEDS: GABAPENTIN 100 MG CAPSULE PO SCH (20:33)
[2019-12-10] MEDS: MIRTAZAPINE 15 MG TABLET GT SCH (20:33)
[2019-12-10] MEDS: FLUCONAZOLE 100 MG TABLET PO SCH (20:33)
[2019-12-10] MEDS: MONTELUKAST SODIUM 10 MG TABLET PO SCH (20:33)
[2019-12-10] MEDS ORDERED: MEROPENEM 0.5 G in IV NORMAL SALINE 50 ML IV SCH (21:00)
[2019-12-10] MEDS ORDERED: MEROPENEM 500 MG VIAL IV ONE (21:34)
[2019-12-10] MEDS ORDERED: VANCOMYCIN IV 200 ML ONE (21:35)
[2019-12-10] MEDS: INSULIN REGULAR, HUMAN 300 UNIT/3 ML VIAL SQ PRN (23:55)
[2019-12-11 00:33] VITALS: BP 138/75
[2019-12-11 04:00] VITALS: BP 117/68
[2019-12-11] MEDS: BLOOD SUGAR DIAGNOSTIC 1 EACH STRIP VI SCH ×4 (05:36→23:09)
--- NOTE | 2019-12-11 06:37 | NUR ---
Pt stable throughout the shift. NSR on tele monitor. Jevity 1.2 running at 50cc, pt tolerating well. Sykes draining well. Comfort care and needs attended. Repositioned for comfort. Safety measures in place. Will endorse to oncoming nurse.
[2019-12-11 07:03] LABS: CARBON DIOXIDE 33 mmol/L (21-32); CHLORIDE 106 mmol/L (98-107); CREATININE 1.4 mg/dL (0.6-1.3); GLUCOSE 142 mg/dL (74-106); POTASSIUM 3.4 mmol/L (3.5-5.1); UREA NITROGEN, BLOOD 39 mg/dL (7-18)
--- NOTE | 2019-12-11 08:00 | NUR ---
Pt is in no acute distress. Call light is within reach. Pt confused. Pt contracted and on position. No residual noted on JEVITY feeding. Gtube flush well with water. Flushed Midline on right brachial without any resistance.
[2019-12-11] MEDS: MEROPENEM 500 MG in IV NORMAL SALINE 50 ML IV SCH ×2 (08:15→21:15)
[2019-12-11] MEDS: PANTOPRAZOLE SODIUM 40 MG VIAL IV SCH (08:15)
[2019-12-11] MEDS: CHOLECALCIFEROL 1,000 UNIT TABLET GT SCH (08:15)
[2019-12-11] MEDS: SENNOSIDES 1 TABLET GT SCH ×2 (08:15→16:19)
[2019-12-11] MEDS: ASCORBIC ACID 500 MG TABLET GT SCH (08:15)
[2019-12-11] MEDS: QUETIAPINE FUMARATE 25 MG TABLET GT SCH ×3 (08:15→16:19)
[2019-12-11] MEDS: METOPROLOL TARTRATE 25 MG TABLET GT SCH ×2 (08:22→16:18)
[2019-12-11] MEDS: PROSOURCE GT SCH (08:22)
[2019-12-11] MEDS ORDERED: PANTOPRAZOLE SODIUM 40 MG VIAL IV SCH (09:00)
[2019-12-11] MEDS ORDERED: ESCITALOPRAM OXALATE 10 MG TABLET GT SCH (09:00)
[2019-12-11] MEDS ORDERED: POTASSIUM CHLORIDE 20 MEQ TAB.PRT.SR PO ONE (09:45)
[2019-12-11] MEDS ORDERED: MEROPENEM 0.5 G in IV NORMAL SALINE 50 ML IV SCH (10:00)
--- NOTE | 2019-12-11 11:00 | NUR ---
Spoke with COSMETIC SALES ADVISOR pt is prone for constipation. COSMETIC SALES ADVISOR ok to give Colace liquid at night.
[2019-12-11] MEDS: INSULIN REGULAR, HUMAN 300 UNIT/3 ML VIAL SQ PRN ×3 (11:30→23:10)
[2019-12-11 11:39] VITALS: BP 152/79
[2019-12-11 13:12] LABS: BASOPHILS % (AUTO) 0.3 % (0.0-2.0); EOSINOPHILS # (AUTO) 0.5 K/uL (0.0-0.7); EOSINOPHILS % (AUTO) 3.3 % (0.0-7.0); HEMATOCRIT 29.7 % (31.2-41.9); LYMPHOCYTES # (AUTO) 2.2 K/uL (20.0-40.0); LYMPHOCYTES % (AUTO) 13.2 % (20.5-51.5); MEAN CORPUSCULAR HEMOGLOBIN 32.2 uug (24.7-32.8); MEAN CORPUSCULAR HGB CONC 34 g/dL (32.3-35.6); MEAN CORPUSCULAR VOLUME 95.7 fL (75.5-95.3); MONOCYTES # (AUTO) 1.3 K/uL (2.0-10.0); MONOCYTES % (AUTO) 7.6 % (0.0-11.0); NEUTROPHILS # (AUTO) 12.7 K/uL (1.8-8.9); NEUTROPHILS % (AUTO) 75.6 % (38.5-71.5); PLATELET COUNT (AUTO) 279 K/uL (179-408); RED BLOOD CELL COUNT(AUTO) 3.11 MIL/uL (3.63-4.92); WHITE BLOOD COUNT (AUTO) 16.8 K/uL (3.8-11.8)
--- NOTE | 2019-12-11 15:00 | NUR ---
Turned of jevity as ordered will turn on @ 1900. No sob noted.
[2019-12-11 15:33] VITALS: BP 148/88
[2019-12-11] MEDS: NYSTATIN/TRIAMCINOLONE CREAM 15 GM TUBE TP SCH (17:22)
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
--- NOTE | 2019-12-11 18:32 | NUR ---
Spoke with EULA [phone] SON main contact for patient. Eula wants arrangement and transfer pt to the "[facility] NURSE" Gave phone number of [employer] [employer] from [facility] covering here at [place].
--- NOTE | 2019-12-11 19:30 | NUR ---
RECEIVED PT IN NO ACUTE DISTRESS. IV INTACT. PT ON BACA CATHETER AND DWELLING YELLOW COLORED URINE. MULTIPLE SKIN ISSUES NOTED. PT CONTRACTED ON ALL EXTREMITIES EXCEPT RIGHT UPPER EXTREMITIES. SAFETY AND COMFORT PROVIDED. WILL CONTINUE TO MONITOR.
[2019-12-11] MEDS: VANCOMYCIN IV 750 MG in IV DEXTROSE 5% 250 ML IV SCH (20:03)
[2019-12-11] MEDS: GABAPENTIN 100 MG CAPSULE PO SCH (20:20)
[2019-12-11] MEDS: DOCUSATE SODIUM 100 MG/10 ML LIQUID UDC GT SCH (20:20)
[2019-12-11] MEDS: MIRTAZAPINE 15 MG TABLET GT SCH (20:20)
[2019-12-11] MEDS: FLUCONAZOLE 100 MG TABLET PO SCH (20:20)
[2019-12-11] MEDS: MONTELUKAST SODIUM 10 MG TABLET PO SCH (20:20)
[2019-12-11 20:39] VITALS: BP 138/76
[2019-12-11 21:41] LABS: *BILIRUBIN,URIN NEGATIVE (NEGATIVE); *COLOR,URINE YELLOW (YELLOW); *KETONES,URINE NEGATIVE (NEGATIVE); *UROBILINOGEN,URINE 0.2 E.U./dl (NORMAL); LEUKOCYTE ESTERASE ,URINE 2+ (NEGATIVE); NITRITE, URINE NEGATIVE (NEGATIVE); PH,URINE 8.5 (5.0-8.0); UGLUCOSE NEGATIVE (NEGATIVE)
[2019-12-11 21:47] LABS: *BLOOD, URINE TRACE INTACT (NEGATIVE)
[2019-12-11 21:48] LABS: *CLARITY,URINE SLIGHTLY CLOUDY (CLEAR)
[2019-12-11 21:49] LABS: *CREATININE,URINE 38.1 mg/dL (30-125); *URINE TOTAL PROTEIN RANDOM 88.5 mg/dL (<150/24HR)
[2019-12-11] MEDS: IV NS 1000 ML 1,000 ML IV PRN (23:00)
[2019-12-11 23:15] LABS: BACTERIA,URINE NONE SEEN /HPF (NONE SEEN); RBC,URINE 0-3 /HPF (0-3); SQUAMOUS EPITHELIAL CELL,UR FEW /HPF (NONE SEEN)
[2019-12-11 23:16] LABS: YEAST,URINE FEW /HPF (NONE SEEN)
[2019-12-12] VITALS: BP 130/84
[2019-12-12 04:00] VITALS: BP 128/64
[2019-12-12] MEDS: JEVITY 1.2 1000 ML LIQUID GT PRN (05:33)
[2019-12-12] MEDS: BLOOD SUGAR DIAGNOSTIC 1 EACH STRIP VI SCH ×3 (06:14→18:11)
--- NOTE | 2019-12-12 06:45 | NUR ---
PT SLEPT INTERMITTENTLY. PT IN NO ACUTE DISTRESS. IV INTACT. GTUBE FEEDING DWELLING WELL. PT TURNED AND REPOSITIONED. DRESSING CHANGED. PT ON OXYGEN CANNULA. PRESCRIBED MEDICATION GIVEN AND PT TOLERATED IT WELL. PT BACA CATHETER DWELLING WELL.SAFETY AND COMFORT PROVIDED. WILL ENDORSE TO INCOMING NURSE FOR CONTINUITY OF CARE.
[2019-12-12 06:46] LABS: BASOPHILS # (AUTO) 0.1 K/uL (0.0-8.0); BASOPHILS % (AUTO) 0.4 % (0.0-2.0); EOSINOPHILS # (AUTO) 0.4 K/uL (0.0-0.7); EOSINOPHILS % (AUTO) 2.5 % (0.0-7.0); HEMATOCRIT 30.8 % (31.2-41.9); HEMOGLOBIN 10.2 g/dL (10.9-14.3); LYMPHOCYTES % (AUTO) 12.1 % (20.5-51.5); MEAN CORPUSCULAR HEMOGLOBIN 31.6 uug (24.7-32.8); MEAN CORPUSCULAR HGB CONC 33 g/dL (32.3-35.6); MEAN CORPUSCULAR VOLUME 95.2 fL (75.5-95.3); MONOCYTES % (AUTO) 6.3 % (0.0-11.0); NEUTROPHILS % (AUTO) 78.7 % (38.5-71.5); PLATELET COUNT (AUTO) 295 K/uL (179-408); RED BLOOD CELL COUNT(AUTO) 3.23 MIL/uL (3.63-4.92); WHITE BLOOD COUNT (AUTO) 16.5 K/uL (3.8-11.8)
[2019-12-12 07:23] LABS: ALANINE AMINOTRANSFERASE 16 U/L (14-59); ALKALINE PHOSPHATASE 88 U/L (50-136); ASPARTATE AMINOTRANSFERASE 25 U/L (15-37); BILIRUBIN,TOTAL 0.2 mg/dL (0.2-1.0); CARBON DIOXIDE 27 mmol/L (21-32); CHLORIDE 107 mmol/L (98-107); CREATININE 1.4 mg/dL (0.6-1.3); GLUCOSE 142 mg/dL (74-106); MAGNESIUM 1.8 mg/dL (1.8-2.4); PHOSPHOROUS 2.6 mg/dL (2.5-4.9); POTASSIUM 3.9 mmol/L (3.5-5.1); TOTAL PROTEIN, SERUM 6.9 g/dL (6.4-8.2); UREA NITROGEN, BLOOD 32 mg/dL (7-18)
[2019-12-12] MEDS: ASCORBIC ACID 500 MG TABLET GT SCH (08:04)
[2019-12-12] MEDS: MEROPENEM 500 MG in IV NORMAL SALINE 50 ML IV SCH ×2 (08:04→20:38)
[2019-12-12] MEDS: PANTOPRAZOLE SODIUM 40 MG VIAL IV SCH (08:04)
[2019-12-12] MEDS: SENNOSIDES 1 TABLET GT SCH ×2 (08:04→16:25)
[2019-12-12] MEDS: QUETIAPINE FUMARATE 25 MG TABLET GT SCH ×3 (08:04→16:25)
[2019-12-12] MEDS: CHOLECALCIFEROL 1,000 UNIT TABLET GT SCH (08:04)
[2019-12-12 08:14] VITALS: BP 138/90
[2019-12-12] MEDS: METOPROLOL TARTRATE 25 MG TABLET GT SCH ×2 (08:18→16:26)
[2019-12-12] MEDS: PROSOURCE GT SCH (08:20)
[2019-12-12 11:07] VITALS: BP 153/82
[2019-12-12] MEDS: INSULIN REGULAR, HUMAN 300 UNIT/3 ML VIAL SQ PRN ×2 (12:11→18:12)
[2019-12-12] MEDS: IV NS 1000 ML 1,000 ML IV PRN (14:35)
--- NOTE | 2019-12-12 14:54 | NUR ---
clonidine0.1 mg j2istih ordered by Miranda Barriga Business Insight And Analytics Manager for sbp >160.
[2019-12-12] MEDS ORDERED: CLONIDINE HCL 0.1 MG TABLET PO PRN (15:00)
[2019-12-12 15:15] VITALS: BP 122/86
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
[2019-12-12] MEDS: NYSTATIN/TRIAMCINOLONE CREAM 15 GM TUBE TP SCH (17:01)
--- NOTE | 2019-12-12 18:24 | NUR ---
PT SLEPT INTERMITTENTLY. PT IN NO ACUTE DISTRESS. IV INTACT. GTUBE FEEDING. PT TOLERATING IT WELL. PT TURNED AND REPOSITIONED. DRESSING CHANGED. PT ON OXYGEN CANNULA. PRESCRIBED MEDICATION GIVEN AND PT TOLERATED IT WELL. SAFETY AND COMFORT PROVIDED. WILL ENDORSE TO INCOMING NURSE FOR CONTINUITY OF CARE.
[2019-12-12 20:24] VITALS: BP 150/90
[2019-12-12] MEDS: VANCOMYCIN IV 750 MG in IV DEXTROSE 5% 250 ML IV SCH (20:37)
[2019-12-12] MEDS: GABAPENTIN 100 MG CAPSULE PO SCH (20:38)
[2019-12-12] MEDS: MIRTAZAPINE 15 MG TABLET GT SCH (20:38)
[2019-12-12] MEDS: FLUCONAZOLE 100 MG TABLET PO SCH (20:38)
[2019-12-12] MEDS: DOCUSATE SODIUM 100 MG/10 ML LIQUID UDC GT SCH (20:38)
[2019-12-12] MEDS: MONTELUKAST SODIUM 10 MG TABLET PO SCH (20:39)
[2019-12-12] MEDS: SODIUM HYPOCHLORITE 0.125% (QUARTER STRENGTH) 473 ML BOTTLE TP SCH (21:30)
[2019-12-13] VITALS: BP 140/68
[2019-12-13] MEDS: BLOOD SUGAR DIAGNOSTIC 1 EACH STRIP VI SCH ×4 (02:07→17:41)
[2019-12-13] MEDS: INSULIN REGULAR, HUMAN 300 UNIT/3 ML VIAL SQ PRN ×2 (02:10→17:49)
[2019-12-13 04:00] VITALS: BP 147/91
[2019-12-13] MEDS: IV NS 1000 ML 1,000 ML IV PRN ×2 (04:12→21:39)
--- NOTE | 2019-12-13 07:24 | NUR ---
Handoff with RYDER Malone. Arturo Pepe RN
[2019-12-13 09:30] VITALS: BP 182/96
[2019-12-13] MEDS: QUETIAPINE FUMARATE 25 MG TABLET GT SCH ×3 (09:48→17:41)
[2019-12-13] MEDS: CHOLECALCIFEROL 1,000 UNIT TABLET GT SCH (09:48)
[2019-12-13] MEDS: ASCORBIC ACID 500 MG TABLET GT SCH (09:48)
[2019-12-13] MEDS: METOPROLOL TARTRATE 25 MG TABLET GT SCH ×2 (09:48→17:37)
[2019-12-13] MEDS: PANTOPRAZOLE SODIUM 40 MG VIAL IV SCH (09:49)
[2019-12-13] MEDS: SODIUM HYPOCHLORITE 0.125% (QUARTER STRENGTH) 473 ML BOTTLE TP SCH (09:49)
[2019-12-13] MEDS: HYDROCODONE/APAP 5-325MG TABLET PO PRN ×2 (09:49→15:00)
[2019-12-13] MEDS: SENNOSIDES 1 TABLET GT SCH ×2 (09:49→17:35)
[2019-12-13] MEDS: PROSOURCE GT SCH (09:50)
[2019-12-13] MEDS: MEROPENEM 500 MG in IV NORMAL SALINE 50 ML IV SCH ×2 (09:51→21:00)
[2019-12-13 11:14] LABS: BASOPHILS # (AUTO) 0.1 K/uL (0.0-8.0); BASOPHILS % (AUTO) 0.7 % (0.0-2.0); EOSINOPHILS # (AUTO) 0.4 K/uL (0.0-0.7); EOSINOPHILS % (AUTO) 3.8 % (0.0-7.0); HEMATOCRIT 27.7 % (31.2-41.9); HEMOGLOBIN 9.1 g/dL (10.9-14.3); LYMPHOCYTES # (AUTO) 1.7 K/uL (20.0-40.0); LYMPHOCYTES % (AUTO) 14.9 % (20.5-51.5); MEAN CORPUSCULAR HEMOGLOBIN 31.5 uug (24.7-32.8); MEAN CORPUSCULAR HGB CONC 33 g/dL (32.3-35.6); MEAN CORPUSCULAR VOLUME 96.5 fL (75.5-95.3); MONOCYTES # (AUTO) 0.9 K/uL (2.0-10.0); MONOCYTES % (AUTO) 8.4 % (0.0-11.0); NEUTROPHILS # (AUTO) 8.1 K/uL (1.8-8.9); NEUTROPHILS % (AUTO) 72.2 % (38.5-71.5); PLATELET COUNT (AUTO) 243 K/uL (179-408); RED BLOOD CELL COUNT(AUTO) 2.88 MIL/uL (3.63-4.92); WHITE BLOOD COUNT (AUTO) 11.3 K/uL (3.8-11.8)
[2019-12-13 11:24] LABS: CREATININE 1.2 mg/dL (0.6-1.3); MAGNESIUM 1.5 mg/dL (1.8-2.4); PHOSPHOROUS 2.8 mg/dL (2.5-4.9); POTASSIUM 3.7 mmol/L (3.5-5.1)
--- NOTE | 2019-12-13 12:38 | NUR ---
WOUND CARE CONSULT: PT FOLLOWED BY [facility] PODI[facility]RY TEAMS FOR WOUND CARE. DEFER TO SURGICAL TEAMS FOR WOUND TREATMENT PLAN. RECOMMENDATIONS MADE FOR SKIN PROTECTION. DISCUSSED WITH NURSING STAFF. MD IN AGREEMENT WITH PLAN OF CARE. CURRENT MANUEL SCORE IS 14.
[2019-12-13] MEDS: MAGNESIUM SULFATE/D5W 100 ML IV SCH ×3 (14:30→16:30)
[2019-12-13 15:02] VITALS: BP 156/76
--- NOTE | 2019-12-13 17:10 | NUR ---
Pt in bed. No s/s of acute distress or pain noted. V/S stable on room air. Gtube intact with Jevity 1.2 running at 50cc. Sykes intact and draining well. BEATA midline is intact with NS running at 95cc. Safety measures in place. Call light within reach. Will continue with the plan of care.
[2019-12-13] MEDS: NYSTATIN/TRIAMCINOLONE CREAM 15 GM TUBE TP SCH (17:35)
[2019-12-13 20:29] VITALS: BP 136/79
[2019-12-13] MEDS: VANCOMYCIN IV 500 MG in IV DEXTROSE 5% 100 ML IV SCH (20:44)
[2019-12-13] MEDS: GABAPENTIN 100 MG CAPSULE PO SCH (20:45)
[2019-12-13] MEDS: DOCUSATE SODIUM 100 MG/10 ML LIQUID UDC GT SCH (20:45)
[2019-12-13] MEDS: MIRTAZAPINE 15 MG TABLET GT SCH (20:45)
[2019-12-13] MEDS: FLUCONAZOLE 100 MG TABLET PO SCH (20:45)
[2019-12-13] MEDS: MONTELUKAST SODIUM 10 MG TABLET PO SCH (20:45)
[2019-12-13] MEDS ORDERED: MAGNESIUM SULFATE/D5W 100 ML ONE (21:15)
[2019-12-14] MEDS: BLOOD SUGAR DIAGNOSTIC 1 EACH STRIP VI SCH ×4 (00:16→17:21)
[2019-12-14] MEDS: INSULIN REGULAR, HUMAN 300 UNIT/3 ML VIAL SQ PRN (00:22)
[2019-12-14] MEDS: JEVITY 1.2 1000 ML LIQUID GT PRN (04:25)
[2019-12-14 04:49] VITALS: BP 121/78
--- NOTE | 2019-12-14 06:11 | NUR ---
V/S stable throughout the shift. No s/s of acute distress or pain noted. Gtube is patent with Jevity 1.2 running at 50cc, pt tolerating well. Sykes draining well. BEATA midline intact with NS running at 95cc. Blood sugar monitored closely and sliding scale protocol implemented. Comfort care and needs attended. Repositioned for comfort. Fall precaution maintained. Safety measures in place. Call lights within reach. Will endorse to oncoming nurse accordingly.
[2019-12-14 07:47] LABS: BASOPHILS # (AUTO) 0.1 K/uL (0.0-8.0); BASOPHILS % (AUTO) 0.8 % (0.0-2.0); CREATININE 1.2 mg/dL (0.6-1.3); EOSINOPHILS # (AUTO) 0.6 K/uL (0.0-0.7); EOSINOPHILS % (AUTO) 5.3 % (0.0-7.0); HEMATOCRIT 27.7 % (31.2-41.9); HEMOGLOBIN 9.3 g/dL (10.9-14.3); LYMPHOCYTES # (AUTO) 2.4 K/uL (20.0-40.0); LYMPHOCYTES % (AUTO) 20.4 % (20.5-51.5); MAGNESIUM 2.9 mg/dL (1.8-2.4); MEAN CORPUSCULAR HEMOGLOBIN 32.4 uug (24.7-32.8); MEAN CORPUSCULAR HGB CONC 34 g/dL (32.3-35.6); MEAN CORPUSCULAR VOLUME 96.2 fL (75.5-95.3); MONOCYTES # (AUTO) 1.1 K/uL (2.0-10.0); MONOCYTES % (AUTO) 8.9 % (0.0-11.0); NEUTROPHILS # (AUTO) 7.7 K/uL (1.8-8.9); NEUTROPHILS % (AUTO) 64.6 % (38.5-71.5); PHOSPHOROUS 2.9 mg/dL (2.5-4.9); PLATELET COUNT (AUTO) 266 K/uL (179-408); POTASSIUM 4.2 mmol/L (3.5-5.1); RED BLOOD CELL COUNT(AUTO) 2.88 MIL/uL (3.63-4.92); WHITE BLOOD COUNT (AUTO) 11.9 K/uL (3.8-11.8)
[2019-12-14] MEDS: PROSOURCE GT SCH (08:00)
--- NOTE | 2019-12-14 08:15 | NUR ---
SHIFT REPORT Recv'd pt. from night nurse asleep in bed with G-tube feeding Jevity 1.2 running at 50mL/hr. G tube intact and patent with no swelling, redness, bleeding, or drainage at site. IV in right upper arm midline intact, patent with no s/s of infection or infiltration noted. NS running 95mL/hr. Pt. is contracted b/l upper and lower extremities. Left side Hemiparesis. Sykes intact and patent with light yellow cloudy drainage. Vancomycin running. BUN 29, Mag 1.5, and WBC 11.3. Will continue to monitor pt. throughout shift.
[2019-12-14] MEDS: SODIUM HYPOCHLORITE 0.125% (QUARTER STRENGTH) 473 ML BOTTLE TP SCH (09:00)
[2019-12-14 11:56] VITALS: BP 138/80
--- NOTE | 2019-12-14 12:30 | NUR ---
Attempted to obtain BS, and pt became combative. Yelling and screaming, snatching hand away, swinging, pinching, and scratching. Refused to have BS taken. Flushed G-tube with 20mL water before administering meds. Administered all 0900 meds crushed via G-tube. Wound care nurse came to debride wound on sacrum. Wound care nurse stated wound did not need debridement d/t healing effectively.
[2019-12-14] MEDS: METOPROLOL TARTRATE 25 MG TABLET GT SCH ×2 (12:36→16:05)
[2019-12-14] MEDS: SENNOSIDES 1 TABLET GT SCH ×2 (12:37→16:04)
[2019-12-14] MEDS: ASCORBIC ACID 500 MG TABLET GT SCH (12:38)
[2019-12-14] MEDS: QUETIAPINE FUMARATE 25 MG TABLET GT SCH ×3 (12:38→16:05)
[2019-12-14] MEDS: PANTOPRAZOLE SODIUM 40 MG VIAL IV SCH (12:39)
[2019-12-14] MEDS: MEROPENEM 500 MG in IV NORMAL SALINE 50 ML IV SCH ×2 (12:39→21:19)
[2019-12-14] MEDS: CHOLECALCIFEROL 1,000 UNIT TABLET GT SCH (13:30)
[2019-12-14] MEDS: IV NS 1000 ML 1,000 ML IV PRN (14:49)
--- NOTE | 2019-12-14 14:50 | NUR ---
Report given to Nurse Regan coming from [facility] unit. Endorsed pt. to nurse in stable condition with Jevity 1.2 running at 50mL/hr via G-tube. Merrem 500mg running at 16.667mL/hr via IV. Informed nurse feeding needs to be turned off at 1500 and resumed at 1900.
[2019-12-14 15:47] VITALS: BP 140/86
[2019-12-14] MEDS: NYSTATIN/TRIAMCINOLONE CREAM 15 GM TUBE TP SCH (17:15)
[2019-12-14] MEDS: VANCOMYCIN IV 500 MG in IV DEXTROSE 5% 100 ML IV SCH (19:45)
--- NOTE | 2019-12-14 19:45 | NUR ---
Received patient in bed awake.Farsi speaking,unable to follow commands.HOB elevated.Contracted on kari lower ext and left arm.On RA saturating at 97%.Gtube intact .No residual noted.All due meds given.ATb IV administered on right upper arm midline.Site clean and dry.No a/r noted.F/c in place draining well with clear yellow output. Continue safety measures.will continue to monitor.
[2019-12-14 20:02] VITALS: BP 143/78
[2019-12-14] MEDS: FLUCONAZOLE 100 MG TABLET PO SCH (20:04)
[2019-12-14] MEDS: DOCUSATE SODIUM 100 MG/10 ML LIQUID UDC GT SCH (20:04)
[2019-12-14] MEDS: GABAPENTIN 100 MG CAPSULE PO SCH (20:04)
[2019-12-14] MEDS: MONTELUKAST SODIUM 10 MG TABLET PO SCH (20:04)
[2019-12-14] MEDS: MIRTAZAPINE 15 MG TABLET GT SCH (20:04)
[2019-12-15] MEDS: BLOOD SUGAR DIAGNOSTIC 1 EACH STRIP VI SCH ×4 (00:07→17:43)
[2019-12-15 04:02] VITALS: BP 143/86
[2019-12-15] MEDS: JEVITY 1.2 1000 ML LIQUID GT PRN (06:40)
[2019-12-15 07:19] LABS: BASOPHILS # (AUTO) 0.1 K/uL (0.0-8.0); BASOPHILS % (AUTO) 0.9 % (0.0-2.0); EOSINOPHILS # (AUTO) 0.7 K/uL (0.0-0.7); EOSINOPHILS % (AUTO) 7.2 % (0.0-7.0); HEMOGLOBIN 9.5 g/dL (10.9-14.3); LYMPHOCYTES # (AUTO) 1.6 K/uL (20.0-40.0); LYMPHOCYTES % (AUTO) 17.8 % (20.5-51.5); MEAN CORPUSCULAR HGB CONC 34 g/dL (32.3-35.6); MEAN CORPUSCULAR VOLUME 94.1 fL (75.5-95.3); MONOCYTES # (AUTO) 0.8 K/uL (2.0-10.0); MONOCYTES % (AUTO) 8.3 % (0.0-11.0); NEUTROPHILS % (AUTO) 65.8 % (38.5-71.5); PLATELET COUNT (AUTO) 256 K/uL (179-408); RED BLOOD CELL COUNT(AUTO) 2.98 MIL/uL (3.63-4.92); WHITE BLOOD COUNT (AUTO) 9.1 K/uL (3.8-11.8)
--- NOTE | 2019-12-15 07:30 | NUR ---
Received patient in bed awake. Patient is Farsi speaking. Patient is also unable to follow commands. Head of the bed is elevated. Patient is severely contracted on bilateral lower extremities and left upper extremity. IV is on right upper arm midline. Patient is saturating at 97%. G-tube intact. No residual noted. Sykes catheter in place draining well with clear yellow output. Safety precautions in place. .Will continue to monitor.
[2019-12-15 08:07] LABS: CREATININE 1.2 mg/dL (0.6-1.3); PHOSPHOROUS 3.5 mg/dL (2.5-4.9); POTASSIUM 3.7 mmol/L (3.5-5.1)
[2019-12-15] MEDS: CHOLECALCIFEROL 1,000 UNIT TABLET GT SCH (08:29)
[2019-12-15] MEDS: ASCORBIC ACID 500 MG TABLET GT SCH (08:30)
[2019-12-15] MEDS: SENNOSIDES 1 TABLET GT SCH ×2 (08:30→17:24)
[2019-12-15] MEDS: QUETIAPINE FUMARATE 25 MG TABLET GT SCH ×3 (08:30→17:24)
[2019-12-15] MEDS: METOPROLOL TARTRATE 25 MG TABLET GT SCH ×2 (08:47→17:25)
[2019-12-15] MEDS: PANTOPRAZOLE SODIUM 40 MG VIAL IV SCH (08:48)
[2019-12-15] MEDS: PROSOURCE GT SCH (08:48)
[2019-12-15] MEDS: SODIUM HYPOCHLORITE 0.125% (QUARTER STRENGTH) 473 ML BOTTLE TP SCH (08:48)
[2019-12-15] MEDS: MEROPENEM 500 MG in IV NORMAL SALINE 50 ML IV SCH ×2 (08:48→21:52)
[2019-12-15 11:28] VITALS: BP 163/86
[2019-12-15] MEDS: INSULIN REGULAR, HUMAN 300 UNIT/3 ML VIAL SQ PRN (12:44)
--- NOTE | 2019-12-15 13:55 | NUR ---
Patient had residual of 40 cc when checked prior to medication administration. Made ENGINEER/CONDUCTOR Norma Rogers aware. Order given to reduce administration rate to 30 cc. Rate reduced. Will continue to monitor.
[2019-12-15 16:00] VITALS: BP 139/68
[2019-12-15] MEDS: NYSTATIN/TRIAMCINOLONE CREAM 15 GM TUBE TP SCH (17:25)
--- NOTE | 2019-12-15 17:30 | NUR ---
No residuals output was noted when checking for residuals. Tube feeding is currently off until 0700, will endorse to the oncoming nurse. Cleaned and dressed all patients wounds and repositioned her. Will continue to monitor.
--- NOTE | 2019-12-15 18:25 | NUR ---
Patient is resting in bed. No sign of distress noted at this time. All medications given as ordered. Patient had 2 bowel movements this shift. Safety precautions in place, bed in lowest position, locked with alarm activation
--- NOTE | 2019-12-15 19:30 | NUR ---
Received patient awake and in bed. Patient is Farsi speaking. No s/s of acute distress noted. Pt is on RA and not appearing to be SOB. O2 saturation at 98%. Right upper midline patent and intact. Gtube patent and intact with zero residual. Jevity feeding currently on hold until the morning per orders. Sykes patent and draining via gravity. Low extremities elevated. Safety measures in place with bed alarm on. Will continue to monitor.
[2019-12-15] MEDS: VANCOMYCIN IV 500 MG in IV DEXTROSE 5% 100 ML IV SCH (20:00)
[2019-12-15 20:02] VITALS: BP 131/84
--- NOTE | 2019-12-15 20:19 | NUR ---
Held Vanco due to trough level out of range of 26.3. Notified by pharmacy. Will continue to monitor
[2019-12-15] MEDS: FLUCONAZOLE 100 MG TABLET PO SCH (20:50)
[2019-12-15] MEDS: DOCUSATE SODIUM 100 MG/10 ML LIQUID UDC GT SCH (20:50)
[2019-12-15] MEDS: MIRTAZAPINE 15 MG TABLET GT SCH (20:50)
[2019-12-15] MEDS: GABAPENTIN 100 MG CAPSULE PO SCH (20:50)
[2019-12-15] MEDS: MONTELUKAST SODIUM 10 MG TABLET PO SCH (20:50)
[2019-12-15] MEDS ORDERED: MEROPENEM 500MG/NS 50ML PB ***ER PYXIS ONLY IV ONE (21:48)
[2019-12-16] MEDS: BLOOD SUGAR DIAGNOSTIC 1 EACH STRIP VI SCH ×4 (00:12→18:00)
[2019-12-16 04:02] VITALS: BP 116/62
--- NOTE | 2019-12-16 07:01 | NUR ---
Patient resting in bed. NO s/s of acute distress noted. Pt on RA with no s/s of SOB. Sykes catheter in place and draining via gravity. Right upper midline patent and intact. Gtube patent and intact. Restarted Jevity 1.2 tube feeding at 30ml/hr. Will endorse to oncoming staff.
[2019-12-16 07:24] LABS: BASOPHILS # (AUTO) 0.1 K/uL (0.0-8.0); BASOPHILS % (AUTO) 0.8 % (0.0-2.0); EOSINOPHILS # (AUTO) 0.6 K/uL (0.0-0.7); EOSINOPHILS % (AUTO) 8.7 % (0.0-7.0); HEMATOCRIT 25.9 % (31.2-41.9); HEMOGLOBIN 8.7 g/dL (10.9-14.3); LYMPHOCYTES # (AUTO) 1.8 K/uL (20.0-40.0); LYMPHOCYTES % (AUTO) 24.1 % (20.5-51.5); MEAN CORPUSCULAR HGB CONC 34 g/dL (32.3-35.6); MEAN CORPUSCULAR VOLUME 95.1 fL (75.5-95.3); MONOCYTES # (AUTO) 0.8 K/uL (2.0-10.0); MONOCYTES % (AUTO) 10.4 % (0.0-11.0); NEUTROPHILS # (AUTO) 4.1 K/uL (1.8-8.9); PLATELET COUNT (AUTO) 249 K/uL (179-408); RED BLOOD CELL COUNT(AUTO) 2.73 MIL/uL (3.63-4.92); WHITE BLOOD COUNT (AUTO) 7.4 K/uL (3.8-11.8)
[2019-12-16 07:32] LABS: CREATININE 1.2 mg/dL (0.6-1.3); PHOSPHOROUS 3.6 mg/dL (2.5-4.9); POTASSIUM 3.4 mmol/L (3.5-5.1)
[2019-12-16] MEDS: PROSOURCE GT SCH (08:00)
[2019-12-16] MEDS ORDERED: POTASSIUM CHLORIDE 20 MEQ POWDER PACKET NG ONE (09:00)
[2019-12-16] MEDS: SODIUM HYPOCHLORITE 0.125% (QUARTER STRENGTH) 473 ML BOTTLE TP SCH (09:00)
[2019-12-16] MEDS: CHOLECALCIFEROL 1,000 UNIT TABLET GT SCH (09:52)
[2019-12-16] MEDS: METOPROLOL TARTRATE 25 MG TABLET GT SCH ×2 (09:52→17:59)
[2019-12-16] MEDS: ASCORBIC ACID 500 MG TABLET GT SCH (09:52)
[2019-12-16] MEDS: QUETIAPINE FUMARATE 25 MG TABLET GT SCH ×3 (09:53→17:59)
[2019-12-16] MEDS: SENNOSIDES 1 TABLET GT SCH ×2 (09:53→17:59)
[2019-12-16] MEDS: PANTOPRAZOLE SODIUM 40 MG VIAL IV SCH (09:53)
[2019-12-16] MEDS: MEROPENEM 500 MG in IV NORMAL SALINE 50 ML IV SCH ×2 (10:17→20:36)
[2019-12-16 11:45] VITALS: BP 108/59
[2019-12-16 16:00] VITALS: BP 130/70
[2019-12-16] MEDS: NYSTATIN/TRIAMCINOLONE CREAM 15 GM TUBE TP SCH (18:40)
[2019-12-16] MEDS: GABAPENTIN 100 MG CAPSULE PO SCH (20:36)
[2019-12-16] MEDS: FLUCONAZOLE 100 MG TABLET PO SCH (20:36)
[2019-12-16] MEDS: DOCUSATE SODIUM 100 MG/10 ML LIQUID UDC GT SCH (20:36)
[2019-12-16] MEDS: MONTELUKAST SODIUM 10 MG TABLET PO SCH (20:36)
[2019-12-16] MEDS: MIRTAZAPINE 15 MG TABLET GT SCH (20:36)
[2019-12-17] MEDS: BLOOD SUGAR DIAGNOSTIC 1 EACH STRIP VI SCH ×5 (00:19→23:59)
[2019-12-17] MEDS: PANTOPRAZOLE ORAL SUSPENSION 40 MG SUSPDR.PKT GT SCH (06:03)
[2019-12-17 07:00] LABS: BASOPHILS # (AUTO) 0.1 K/uL (0.0-8.0); BASOPHILS % (AUTO) 0.6 % (0.0-2.0); EOSINOPHILS # (AUTO) 0.7 K/uL (0.0-0.7); EOSINOPHILS % (AUTO) 8.4 % (0.0-7.0); HEMATOCRIT 28.3 % (31.2-41.9); HEMOGLOBIN 9.9 g/dL (10.9-14.3); LYMPHOCYTES % (AUTO) 24.8 % (20.5-51.5); MEAN CORPUSCULAR HEMOGLOBIN 32.9 uug (24.7-32.8); MEAN CORPUSCULAR HGB CONC 35 g/dL (32.3-35.6); MEAN CORPUSCULAR VOLUME 94.1 fL (75.5-95.3); MONOCYTES # (AUTO) 0.9 K/uL (2.0-10.0); MONOCYTES % (AUTO) 11.5 % (0.0-11.0); NEUTROPHILS # (AUTO) 4.4 K/uL (1.8-8.9); NEUTROPHILS % (AUTO) 54.7 % (38.5-71.5); PLATELET COUNT (AUTO) 289 K/uL (179-408); RED BLOOD CELL COUNT(AUTO) 3.01 MIL/uL (3.63-4.92); WHITE BLOOD COUNT (AUTO) 8.1 K/uL (3.8-11.8)
[2019-12-17 07:09] LABS: CREATININE 1.2 mg/dL (0.6-1.3); MAGNESIUM 1.9 mg/dL (1.8-2.4); PHOSPHOROUS 3.4 mg/dL (2.5-4.9); POTASSIUM 3.9 mmol/L (3.5-5.1)
--- NOTE | 2019-12-17 07:30 | NUR ---
Received patient in bed awake. Patient is Farsi speaking . Patient is also unable to follow commands and at time combative and hostile. Head of the bed is elevated. Patient is severely contracted on bilateral lower extremities and left upper extremity. IV is on right upper arm midline. Patient is saturating well on room air. G-tube intact. No residual noted. Sykes catheter in place draining well with clear yellow output. Safety precautions in place. Will continue to monitor
[2019-12-17] MEDS ORDERED: VANCOMYCIN IV 500 MG in IV DEXTROSE 5% 100 ML IV SCH (08:00)
[2019-12-17] MEDS: PROSOURCE GT SCH (08:08)
--- NOTE | 2019-12-17 09:00 | NUR ---
Per BIOLOGICAL SCIENCES PROFESSOR Norma Rogers is patient residuals is less than 30 cc to increase tube feeding dosage to 35 cc per hour. Will continue to monitor.
[2019-12-17] MEDS: QUETIAPINE FUMARATE 25 MG TABLET GT SCH ×3 (09:01→17:26)
[2019-12-17] MEDS: SENNOSIDES 1 TABLET GT SCH ×2 (09:01→17:26)
[2019-12-17] MEDS: CHOLECALCIFEROL 1,000 UNIT TABLET GT SCH (09:01)
[2019-12-17] MEDS: ASCORBIC ACID 500 MG TABLET GT SCH (09:01)
[2019-12-17] MEDS: MEROPENEM 500 MG in IV NORMAL SALINE 50 ML IV SCH ×2 (09:02→21:35)
[2019-12-17] MEDS: SODIUM HYPOCHLORITE 0.125% (QUARTER STRENGTH) 473 ML BOTTLE TP SCH (09:02)
[2019-12-17] MEDS: METOPROLOL TARTRATE 25 MG TABLET GT SCH ×2 (09:07→17:28)
--- NOTE | 2019-12-17 09:55 | NUR ---
Patient had no residuals to tube feeding dosage was advanced to 35 cc per hour per BUCKLE SEWER MACHINE Norma's orders. Will continue to monitor.
[2019-12-17 11:34] VITALS: BP 131/67
--- NOTE | 2019-12-17 15:00 | NUR ---
Turned off tube feeding. Will continue to monitor.
[2019-12-17 15:58] VITALS: BP 142/69
[2019-12-17] MEDS: NYSTATIN/TRIAMCINOLONE CREAM 15 GM TUBE TP SCH (17:26)
--- NOTE | 2019-12-17 18:25 | NUR ---
Patient is resting in bed. No sign of distress noted at this time. All medications given as ordered. Patient's wounds were cleaned and dressed according to orders. Patient tube feeding was advanced to 35 cc per hour and tolerated it well with no residuals. Safety precautions in place, bed in lowest position, locked with alarm activation. Will endorse to the oncoming nurse to turn tube feeding on at 0700 and off at 1500.
[2019-12-17 20:41] VITALS: BP 122/67
[2019-12-17] MEDS: DOCUSATE SODIUM 100 MG/10 ML LIQUID UDC GT SCH (21:33)
[2019-12-17] MEDS: GABAPENTIN 100 MG CAPSULE PO SCH (21:33)
[2019-12-17] MEDS: MIRTAZAPINE 15 MG TABLET GT SCH (21:33)
[2019-12-17] MEDS: FLUCONAZOLE 100 MG TABLET PO SCH (21:33)
[2019-12-17] MEDS: MONTELUKAST SODIUM 10 MG TABLET PO SCH (21:33)
--- NOTE | 2019-12-17 23:28 | NUR ---
Received pt sleeping in bed. Easily aroused to verbal stimuli. Farsi speaking. No acute distress noted. Pt is verbally hostile. Pt's left upper extremity and bilateral lower extremities are contracted. G- tube patent and intact, flushing well, no residual noted. Meds given as ordered via G-tube. Sykes catheter draining well with clear yellow colored urine. Turned and repositioned. Both heels offloaded. Safety measures maintained. Will continue to monitor.
[2019-12-17] MEDS: INSULIN REGULAR, HUMAN 300 UNIT/3 ML VIAL SQ PRN (23:59)
--- NOTE | 2019-12-18 00:14 | NUR ---
Accucheck 76, no insulin coverage as per sliding scale. One cup of orange juice given to prevent hypoglycemia. Continue to monitor.
[2019-12-18 04:10] VITALS: BP 135/65
[2019-12-18] MEDS: BLOOD SUGAR DIAGNOSTIC 1 EACH STRIP VI SCH ×3 (05:46→18:10)
--- NOTE | 2019-12-18 05:46 | NUR ---
Accucheck 76, no insulin coverage as per sliding scale. One cup of orange juice given to prevent hypoglycemia. Pt slept comfortably throughout the night. All needs attended to promptly. Continue to monitor.
[2019-12-18] MEDS: INSULIN REGULAR, HUMAN 300 UNIT/3 ML VIAL SQ PRN (05:48)
[2019-12-18] MEDS: PANTOPRAZOLE ORAL SUSPENSION 40 MG SUSPDR.PKT GT SCH (06:36)
[2019-12-18 06:45] LABS: BASOPHILS % (AUTO) 0.5 % (0.0-2.0); EOSINOPHILS # (AUTO) 0.6 K/uL (0.0-0.7); EOSINOPHILS % (AUTO) 8.1 % (0.0-7.0); HEMATOCRIT 28.7 % (31.2-41.9); HEMOGLOBIN 9.8 g/dL (10.9-14.3); LYMPHOCYTES % (AUTO) 26.2 % (20.5-51.5); MEAN CORPUSCULAR HEMOGLOBIN 32.4 uug (24.7-32.8); MEAN CORPUSCULAR HGB CONC 34 g/dL (32.3-35.6); MEAN CORPUSCULAR VOLUME 94.7 fL (75.5-95.3); MONOCYTES # (AUTO) 0.8 K/uL (2.0-10.0); MONOCYTES % (AUTO) 10.2 % (0.0-11.0); NEUTROPHILS # (AUTO) 4.2 K/uL (1.8-8.9); PLATELET COUNT (AUTO) 279 K/uL (179-408); RED BLOOD CELL COUNT(AUTO) 3.03 MIL/uL (3.63-4.92); WHITE BLOOD COUNT (AUTO) 7.6 K/uL (3.8-11.8)
[2019-12-18] MEDS: JEVITY 1.2 1000 ML LIQUID GT PRN (06:46)
[2019-12-18 06:47] LABS: CREATININE 1.1 mg/dL (0.6-1.3); MAGNESIUM 1.7 mg/dL (1.8-2.4); PHOSPHOROUS 3.5 mg/dL (2.5-4.9); POTASSIUM 3.7 mmol/L (3.5-5.1)
--- NOTE | 2019-12-18 07:30 | NUR ---
Received patient in bed awake. Patient is Farsi speaking. Patient is also unable to follow commands and at times is combative and hostile. Head of the bed is elevated as a aspiration precaution. Patient is severely contracted on bilateral lower extremities and left upper extremity. IV is on right upper arm midline. Patient is saturating well on room air. G-tube intact. No residual noted. Sykes catheter in place draining well with clear yellow output. Safety precautions in place. Will continue to monitor
[2019-12-18] MEDS: ASCORBIC ACID 500 MG TABLET GT SCH (08:41)
[2019-12-18] MEDS: PROSOURCE GT SCH (08:41)
[2019-12-18] MEDS: QUETIAPINE FUMARATE 25 MG TABLET GT SCH ×3 (08:42→17:28)
[2019-12-18] MEDS: SENNOSIDES 1 TABLET GT SCH ×2 (08:42→17:28)
[2019-12-18] MEDS: CHOLECALCIFEROL 1,000 UNIT TABLET GT SCH (08:42)
[2019-12-18] MEDS: MEROPENEM 500 MG in IV NORMAL SALINE 50 ML IV SCH (08:42)
[2019-12-18] MEDS: SODIUM HYPOCHLORITE 0.125% (QUARTER STRENGTH) 473 ML BOTTLE TP SCH (08:44)
[2019-12-18] MEDS: METOPROLOL TARTRATE 25 MG TABLET GT SCH ×2 (08:52→17:00)
[2019-12-18] MEDS ORDERED: MAGNESIUM SULFATE/D5W 100 ML IV ONE (09:15)
[2019-12-18 12:00] VITALS: BP 126/73
--- NOTE | 2019-12-18 13:00 | NUR ---
Spoke with Norma Rogers OYSTER OPENER, she recommended that if patient had no residuals to advance tube feeding to 40 cc per hour. Will advance as ordered and will continue to monitor residuals..
[2019-12-18 15:51] VITALS: BP 95/62
[2019-12-18 17:00] VITALS: BP 95/62
[2019-12-18] MEDS: NYSTATIN/TRIAMCINOLONE CREAM 15 GM TUBE TP SCH (18:07)
--- NOTE | 2019-12-18 18:20 | NUR ---
Brought patient down in wheelchair. No sign of distress noted. Patient left in private car with son Albino. All paperwork and belongings is with patient.
--- NOTE | 2019-12-18 18:40 | NUR ---
Gave report to charge nurse Morel at [facility].
--- NOTE | 2019-12-18 18:50 | NUR ---
Gabino EMT (Raudel) is here to pick up attendant patient. Patient is leaving with all paperwork which include medication list and discharge instructions. Patient is in stable condition. No sign of distress noted at this time. Patient's vitals are within normal limits.
== END 2019-12-18 18:50 | DRG 853 ==
LOC: ER 10:34 → TELE3 13:07 → MEDSURG3 12-13 07:55
PROVIDERS: ADMIT Nurse Practitioner Acute Care; ATTEND Registered Nurse
PROC: 0KBN0ZZ Excision of Right Hip Muscle, Open Approach (ICD-10-PCS; principal; 2019-12-14)
DX: A41.9 Sepsis, unspecified organism (principal); L89.153 Pressure ulcer of sacral region, stage 3; L89.214 Pressure ulcer of right hip, stage 4; E43 Unspecified severe protein-calorie malnutrition; G92 Toxic encephalopathy; R53.2 Functional quadriplegia; N17.0 Acute kidney failure with tubular necrosis; J69.0 Pneumonitis due to inhalation of food and vomit; Z68.1 Body mass index [BMI] 19.9 or less, adult; L97.429 Non-pressure chronic ulcer of left heel and midfoot with unspecified severity; L97.419 Non-pressure chronic ulcer of right heel and midfoot with unspecified severity; D68.69 Other thrombophilia; E87.1 Hypo-osmolality and hyponatremia; K92.2 Gastrointestinal hemorrhage, unspecified; B37.49 Other urogenital candidiasis; E11.621 Type 2 diabetes mellitus with foot ulcer; E11.51 Type 2 diabetes mellitus with diabetic peripheral angiopathy without gangrene; E11.22 Type 2 diabetes mellitus with diabetic chronic kidney disease; E11.40 Type 2 diabetes mellitus with diabetic neuropathy, unspecified; E78.5 Hyperlipidemia, unspecified; E83.39 Other disorders of phosphorus metabolism; M24.561 Contracture, right knee; M24.562 Contracture, left knee; J45.909 Unspecified asthma, uncomplicated; N18.30 Chronic kidney disease, stage 3 unspecified; I12.9 Hypertensive chronic kidney disease with stage 1 through stage 4 chronic kidney disease, or unspecified chronic kidney disease; N25.0 Renal osteodystrophy; R13.10 Dysphagia, unspecified; F01.50 Vascular dementia, unspecified severity, without behavioral disturbance, psychotic disturbance, mood disturbance, and anxiety; L89.226 Pressure-induced deep tissue damage of left hip; E88.09 Other disorders of plasma-protein metabolism, not elsewhere classified; M62.50 Muscle wasting and atrophy, not elsewhere classified, unspecified site; Z68.21 Body mass index [BMI] 21.0-21.9, adult; E87.6 Hypokalemia; E83.42 Hypomagnesemia; S20.422A Blister (nonthermal) of left back wall of thorax, initial encounter; S70.321A Blister (nonthermal), right thigh, initial encounter; X58.XXXA Exposure to other specified factors, initial encounter; Y93.9 Activity, unspecified; Y92.89 Other specified places as the place of occurrence of the external cause; Z87.440 Personal history of urinary (tract) infections; D63.8 Anemia in other chronic diseases classified elsewhere; E86.0 Dehydration; Z79.4 Long term (current) use of insulin; Z93.1 Gastrostomy status
CPT/HCPCS: 36415; 70030-TC; 71045; 83605; 83690; 83735; 84100; 84156; 84300; 85025; 85730; 87040; 87086; 93005; A4663; C9113; G0378; J0696; J1815; J2185; J3370; J3475; J3490; J7030; J7040; J7060

== ENCOUNTER 2020-01-21 18:39 | Inpatient (IN) | payer MEDICARE, OTHER ==
[~2020-01-21] VITALS: Ht 152.4 cm; Wt 55.3 kg
[~2020-01-21 18:39] MED LIST changes: -CELEBREX; -HYDR-3972 GT; -HYZAAR; -LEVO500T90 GT; -MERO500V21 IV; -METFORMIN; -MONT10TA27 PO; +MONT10TA97 PO; -PREVACID; -SINGULAR; -VANC1PLA9 IV; -ZOCOR
--- NOTE | 2020-01-21 18:49 | NUR ---
NO INFORMATION ABOUT PT'S CURRENT HOME MEDICATIONS AVAILABLE.
[2020-01-21 19:34] LABS: ABG BASE EXCESS 15.5 mmol/L; ABG HCO3 41.5 mmol/L; ABG PCO2 59.5 mmHg (35.0-45.0); ABG PH 7.461 (7.350-7.450); ABG PO2 72.2 mmHg (75.0-100.0); ABG SITE RIGHT BRACHIAL; ABG TOTAL HEMOGLOBIN 9.8 G/dL (12.0-16.0); COHb 1.2 % (0.5-1.5); MetHb 0.1 % (0.0-1.5); O2Hb 93.2 % (94.0-97.0); VENT MODE Nasal Cannula
[2020-01-21 20:00] LABS: BASOPHILS # (AUTO) 0.1 K/uL (0.0-8.0); BASOPHILS % (AUTO) 0.6 % (0.0-2.0); EOSINOPHILS # (AUTO) 0.2 K/uL (0.0-0.7); HEMATOCRIT 28.8 % (31.2-41.9); HEMOGLOBIN 9.3 g/dL (10.9-14.3); LYMPHOCYTES # (AUTO) 1.8 K/uL (20.0-40.0); LYMPHOCYTES % (AUTO) 14.5 % (20.5-51.5); MEAN CORPUSCULAR HEMOGLOBIN 33.7 uug (24.7-32.8); MEAN CORPUSCULAR HGB CONC 32 g/dL (32.3-35.6); MEAN CORPUSCULAR VOLUME 104.6 fL (75.5-95.3); MONOCYTES % (AUTO) 8.2 % (0.0-11.0); NEUTROPHILS # (AUTO) 9.3 K/uL (1.8-8.9); NEUTROPHILS % (AUTO) 74.7 % (38.5-71.5); PLATELET COUNT (AUTO) 288 K/uL (179-408); RED BLOOD CELL COUNT(AUTO) 2.76 MIL/uL (3.63-4.92); WHITE BLOOD COUNT (AUTO) 12.4 K/uL (3.8-11.8)
[2020-01-21] MEDS ORDERED: IV NS 1000 ML 1,000 ML IV ONE (20:15)
[2020-01-21] MEDS ORDERED: IV NORMAL SALINE 500 ML IV ONE (20:15)
[2020-01-21 20:37] LABS: ALANINE AMINOTRANSFERASE 44 U/L (14-59); ALKALINE PHOSPHATASE 72 U/L (50-136); ASPARTATE AMINOTRANSFERASE 51 U/L (15-37); BILIRUBIN,TOTAL 0.4 mg/dL (0.2-1.0); CHLORIDE 109 mmol/L (98-107); FERRITIN 971 ng/mL (8-252); GLUCOSE 208 mg/dL (74-106); LACTATE DEHYDROGENASE 208 U/L (81-234); POTASSIUM 4.1 mmol/L (3.5-5.1); TOTAL PROTEIN, SERUM 8.2 g/dL (6.4-8.2)
[2020-01-21 20:40] LABS: CARBON DIOXIDE 40 mmol/L (21-32); UREA NITROGEN, BLOOD 119 mg/dL (7-18)
--- NOTE | 2020-01-21 21:05 | NUR ---
SHANE NOTED RESTING IN BED
[2020-01-21 21:14] LABS: ACETAMINOPHEN < 2.0 ug/mL (10-30)
[2020-01-21] MEDS ORDERED: levoFLOXacin 500 MG/D5W 100ML PIGGYBACK IV ONE (21:30)
[2020-01-21 21:33] LABS: *BILIRUBIN,URIN NEGATIVE (NEGATIVE); *BLOOD, URINE 2+ (NEGATIVE); *CLARITY,URINE CLOUDY (CLEAR); *COLOR,URINE YELLOW (YELLOW); *KETONES,URINE NEGATIVE (NEGATIVE); *UROBILINOGEN,URINE 0.2 E.U./dl (NORMAL); LEUKOCYTE ESTERASE ,URINE 2+ (NEGATIVE); NITRITE, URINE NEGATIVE (NEGATIVE); PH,URINE 5.5 (5.0-8.0); UGLUCOSE NEGATIVE (NEGATIVE)
[2020-01-21] MEDS ORDERED: levoFLOXacin 500 MG/D5W 100 ML ONE (21:39)
[2020-01-21 21:42] LABS: *AMPHETAMINE, URINE NEGATIVE (NEGATIVE); *CANNABINOID, URINE NEGATIVE (NEGATIVE); *COCCAINE, URINE NEGATIVE (NEGATIVE); *PHENCYCLIDINE SCREEN,URINE NEGATIVE (NEGATIVE)
[2020-01-21 21:50] LABS: *OPIATE, URINE NEGATIVE (NEGATIVE)
[2020-01-21] MEDS ORDERED: DEXTROSE 50% 50 ML DISP.SYRIN IV PRN (22:45)
[2020-01-21] MEDS ORDERED: IV D5/ 0.9% NACL 1,000 ML IV PRN (22:45)
[2020-01-21] MEDS ORDERED: ONDANSETRON 4 MG/2 ML VIAL IV PRN (22:45)
[2020-01-21] MEDS ORDERED: HYDROCODONE/APAP 5-325MG TABLET PO PRN (22:45)
[2020-01-21] MEDS ORDERED: ACETAMINOPHEN 325 MG TABLET PO PRN (22:45)
[2020-01-21] MEDS ORDERED: Z GUARD REMEDY PASTE 57 GM TUBE TOP PRN (22:45)
[2020-01-21] MEDS ORDERED: MIRALAX 17 GM POWD.PACK GT PRN (23:00)
[2020-01-21] MEDS ORDERED: BISACODYL 10 MG SUPP.RECT RC PRN (23:00)
--- NOTE | 2020-01-21 23:39 | NUR ---
report given to Brittaney SOLER
--- NOTE | 2020-01-21 23:50 | NUR ---
Patient transferred by supervisor microbiology technologists to room 323, CNS brynn is the accepting acetone button paster
--- NOTE | 2020-01-21 23:56 | NUR ---
Patient arrived via gurney from ED. No s/s of acute distress noted. Pt on 2L NC, no signs of SOB. warp drawer on. Sykes in place, patent and draining via gravity. Gtube with 0 residual noted. Safety measures in place and will continue to monitor.
[2020-01-21 23:58] LABS: CREATINE KINASE, TOTAL 306 U/L (26-192)
[2020-01-22 00:30] VITALS: BP 96/54
[2020-01-22 00:53] LABS: BACTERIA,URINE NONE SEEN /HPF (NONE SEEN); SQUAMOUS EPITHELIAL CELL,UR FEW /HPF (NONE SEEN)
[2020-01-22] MEDS: INSULIN REGULAR, HUMAN 300 UNIT/3 ML VIAL SQ PRN ×3 (01:34→12:19)
[2020-01-22 04:33] VITALS: BP 94/53
--- NOTE | 2020-01-22 06:00 | NUR ---
Patient coughed and discolored discharge with a foul odor excreted from the Gtube. Help 0600 flush and AM GT meds. Will endorse to oncoming staff.
[2020-01-22] MEDS ORDERED: HYDROCODONE/APAP 5-325MG TABLET GT PRN (06:13)
[2020-01-22] MEDS ORDERED: ACETAMINOPHEN 650 MG/20.3 ML LIQUID UDC GT PRN (06:15)
[2020-01-22] MEDS: BLOOD SUGAR DIAGNOSTIC 1 EACH STRIP VI SCH ×4 (06:22→17:07)
[2020-01-22] MEDS ORDERED: PANTOPRAZOLE SODIUM 40 MG TABLET.DR PO SCH (07:00)
[2020-01-22 07:01] LABS: BASOPHILS % (AUTO) 0.5 % (0.0-2.0); EOSINOPHILS # (AUTO) 0.1 K/uL (0.0-0.7); EOSINOPHILS % (AUTO) 1.3 % (0.0-7.0); HEMATOCRIT 25.7 % (31.2-41.9); HEMOGLOBIN 8.6 g/dL (10.9-14.3); LYMPHOCYTES # (AUTO) 1.3 K/uL (20.0-40.0); LYMPHOCYTES % (AUTO) 13.6 % (20.5-51.5); MEAN CORPUSCULAR HEMOGLOBIN 35.4 uug (24.7-32.8); MEAN CORPUSCULAR HGB CONC 34 g/dL (32.3-35.6); MEAN CORPUSCULAR VOLUME 105.3 fL (75.5-95.3); MONOCYTES # (AUTO) 0.9 K/uL (2.0-10.0); MONOCYTES % (AUTO) 9.4 % (0.0-11.0); NEUTROPHILS # (AUTO) 7.3 K/uL (1.8-8.9); NEUTROPHILS % (AUTO) 75.2 % (38.5-71.5); PLATELET COUNT (AUTO) 240 K/uL (179-408); WHITE BLOOD COUNT (AUTO) 9.7 K/uL (3.8-11.8)
[2020-01-22 07:08] LABS: RED BLOOD CELL COUNT(AUTO) 2.44 MIL/uL (3.63-4.92)
[2020-01-22 07:12] LABS: CARBON DIOXIDE 35 mmol/L (21-32); CHLORIDE 114 mmol/L (98-107); CHOLESTEROL 145 mg/dL (<200); CREATININE 2.5 mg/dL (0.6-1.3); GLUCOSE 209 mg/dL (74-106); HDL CHOLESTEROL 41 mg/dL (40-60); MAGNESIUM 3.5 mg/dL (1.8-2.4); PHOSPHOROUS 2.7 mg/dL (2.5-4.9); POTASSIUM 3.8 mmol/L (3.5-5.1); TRIGLYCERIDES 134 MG/DL (30-150)
[2020-01-22 08:17] LABS: UREA NITROGEN, BLOOD 110 mg/dL (7-18)
[2020-01-22] MEDS: FLUTICASONE/VILANTEROL 1 EACH BLST.W.DEV IH SCH (09:00)
[2020-01-22] MEDS: METOPROLOL TARTRATE 25 MG TABLET GT SCH ×2 (09:00→21:00)
[2020-01-22] MEDS ORDERED: HEPARIN SODIUM,PORCINE 5,000 UNITS/ML VIAL SQ SCH (09:00)
[2020-01-22] MEDS: ASCORBIC ACID 500 MG TABLET GT SCH (09:25)
[2020-01-22] MEDS: CHOLECALCIFEROL 1,000 UNIT TABLET GT SCH (09:25)
[2020-01-22] MEDS: MULTIVITAMINS,THERAPEUTIC TABLET GT SCH (09:25)
[2020-01-22] MEDS: PANTOPRAZOLE ORAL SUSPENSION 40 MG SUSPDR.PKT GT SCH (09:25)
[2020-01-22 09:26] VITALS: BP 92/52
[2020-01-22] MEDS: SENNOSIDES 1 TABLET GT SCH ×2 (09:26→17:14)
[2020-01-22] MEDS: ESCITALOPRAM OXALATE 10 MG TABLET GT SCH (09:26)
[2020-01-22] MEDS: APIXABAN 2.5 MG TABLET GT SCH ×2 (09:39→21:33)
[2020-01-22 11:21] VITALS: BP 90/48
[2020-01-22 15:33] VITALS: BP 99/50
[2020-01-22] MEDS: NYSTATIN/TRIAMCINOLONE CREAM 15 GM TUBE TP SCH (17:14)
[2020-01-22] MEDS: JEVITY 1.2 1000 ML LIQUID GT PRN (18:12)
[2020-01-22] MEDS: IV 1/2NS 1000 ML 1,000 ML IV PRN (18:24)
[2020-01-22 20:00] VITALS: BP 107/55
--- NOTE | 2020-01-22 20:00 | NUR ---
Received patient resting in bed. No s/s of acute distress noted at this time. Pt on 2L NC, no s/s of SOB. Sykes in place draining via gravity. Gtube noted with 0 residual, Tube feeding at 30ml/hr. Bilateral heels off loaded. Safety measures in place, bed alarm on.
--- NOTE | 2020-01-22 21:00 | NUR ---
Held Lopressor BP 91/46 HR 79. Will continue to monitor.
[2020-01-22] MEDS: MONTELUKAST SODIUM 10 MG TABLET GT SCH (21:33)
[2020-01-22] MEDS: MIRTAZAPINE 15 MG TABLET GT SCH (21:33)
[2020-01-22] MEDS: GABAPENTIN 100 MG CAPSULE GT SCH (21:33)
[2020-01-23 00:39] VITALS: BP 113/66
[2020-01-23] MEDS: BLOOD SUGAR DIAGNOSTIC 1 EACH STRIP VI SCH ×4 (02:00→17:44)
[2020-01-23] MEDS: INSULIN REGULAR, HUMAN 300 UNIT/3 ML VIAL SQ PRN ×4 (02:04→16:58)
[2020-01-23 04:00] VITALS: BP 118/64
[2020-01-23] MEDS: PANTOPRAZOLE ORAL SUSPENSION 40 MG SUSPDR.PKT GT SCH (06:11)
[2020-01-23 06:46] LABS: BASOPHILS % (AUTO) 0.6 % (0.0-2.0); EOSINOPHILS # (AUTO) 0.3 K/uL (0.0-0.7); EOSINOPHILS % (AUTO) 4.1 % (0.0-7.0); HEMATOCRIT 28.3 % (31.2-41.9); HEMOGLOBIN 9.2 g/dL (10.9-14.3); LYMPHOCYTES # (AUTO) 1.3 K/uL (20.0-40.0); LYMPHOCYTES % (AUTO) 17.6 % (20.5-51.5); MEAN CORPUSCULAR HEMOGLOBIN 34.5 uug (24.7-32.8); MEAN CORPUSCULAR HGB CONC 33 g/dL (32.3-35.6); MEAN CORPUSCULAR VOLUME 105.5 fL (75.5-95.3); MONOCYTES # (AUTO) 0.6 K/uL (2.0-10.0); MONOCYTES % (AUTO) 8.2 % (0.0-11.0); NEUTROPHILS % (AUTO) 69.5 % (38.5-71.5); PLATELET COUNT (AUTO) 230 K/uL (179-408); RED BLOOD CELL COUNT(AUTO) 2.68 MIL/uL (3.63-4.92); WHITE BLOOD COUNT (AUTO) 7.2 K/uL (3.8-11.8)
[2020-01-23 07:48] LABS: CARBON DIOXIDE 31 mmol/L (21-32); CHLORIDE 115 mmol/L (98-107); GLUCOSE 200 mg/dL (74-106); MAGNESIUM 3.3 mg/dL (1.8-2.4); PHOSPHOROUS 2.7 mg/dL (2.5-4.9); POTASSIUM 3.6 mmol/L (3.5-5.1)
[2020-01-23 07:58] LABS: UREA NITROGEN, BLOOD 93 mg/dL (7-18)
[2020-01-23 08:00] VITALS: BP 102/42
[2020-01-23] MEDS: ASCORBIC ACID 500 MG TABLET GT SCH (08:32)
[2020-01-23] MEDS: MULTIVITAMINS,THERAPEUTIC TABLET GT SCH (08:32)
[2020-01-23] MEDS: CHOLECALCIFEROL 1,000 UNIT TABLET GT SCH (08:32)
[2020-01-23] MEDS: ESCITALOPRAM OXALATE 10 MG TABLET GT SCH (08:33)
[2020-01-23] MEDS: SENNOSIDES 1 TABLET GT SCH ×2 (08:34→16:53)
[2020-01-23] MEDS: METOPROLOL TARTRATE 25 MG TABLET GT SCH ×2 (08:38→22:17)
[2020-01-23] MEDS: APIXABAN 2.5 MG TABLET GT SCH ×2 (08:44→22:17)
[2020-01-23] MEDS: FLUTICASONE/VILANTEROL 1 EACH BLST.W.DEV IH SCH (08:48)
[2020-01-23] MEDS: SODIUM HYPOCHLORITE 0.125% (QUARTER STRENGTH) 473 ML BOTTLE TP SCH (09:16)
[2020-01-23] MEDS: IV 1/2NS 1000 ML 1,000 ML IV PRN ×2 (10:19→21:01)
[2020-01-23 15:14] VITALS: BP 127/75
[2020-01-23] MEDS: NYSTATIN/TRIAMCINOLONE CREAM 15 GM TUBE TP SCH (17:20)
[2020-01-23 20:20] VITALS: BP 118/67
[2020-01-23] MEDS ORDERED: levoFLOXacin 750MG/D5W 750 MG in PREMIXED 1 EACH IV SCH (21:00)
[2020-01-23] MEDS ORDERED: CEFTRIAXONE 1 G in IV DEXTROSE 5% 50 ML IV SCH (21:00)
[2020-01-23] MEDS: MONTELUKAST SODIUM 10 MG TABLET GT SCH (22:17)
[2020-01-23] MEDS: GABAPENTIN 100 MG CAPSULE GT SCH (22:17)
[2020-01-23] MEDS: MIRTAZAPINE 15 MG TABLET GT SCH (22:17)
[2020-01-24] MEDS: BLOOD SUGAR DIAGNOSTIC 1 EACH STRIP VI SCH ×4 (00:29→17:24)
[2020-01-24] MEDS: INSULIN REGULAR, HUMAN 300 UNIT/3 ML VIAL SQ PRN ×2 (00:31→17:21)
[2020-01-24 04:00] VITALS: BP 116/65
[2020-01-24] MEDS: PANTOPRAZOLE ORAL SUSPENSION 40 MG SUSPDR.PKT GT SCH (06:23)
[2020-01-24] MEDS: JEVITY 1.2 1000 ML LIQUID GT PRN (06:54)
[2020-01-24 07:32] LABS: CARBON DIOXIDE 29 mmol/L (21-32); CHLORIDE 113 mmol/L (98-107); CREATININE 1.4 mg/dL (0.6-1.3); GLUCOSE 132 mg/dL (74-106); MAGNESIUM 2.6 mg/dL (1.8-2.4); PHOSPHOROUS 2.2 mg/dL (2.5-4.9); POTASSIUM 3.2 mmol/L (3.5-5.1); UREA NITROGEN, BLOOD 62 mg/dL (7-18)
[2020-01-24 07:37] LABS: BASOPHILS % (AUTO) 0.5 % (0.0-2.0); EOSINOPHILS # (AUTO) 0.4 K/uL (0.0-0.7); EOSINOPHILS % (AUTO) 5.3 % (0.0-7.0); HEMATOCRIT 27.1 % (31.2-41.9); LYMPHOCYTES # (AUTO) 1.5 K/uL (20.0-40.0); LYMPHOCYTES % (AUTO) 17.9 % (20.5-51.5); MEAN CORPUSCULAR HEMOGLOBIN 34.8 uug (24.7-32.8); MEAN CORPUSCULAR HGB CONC 33 g/dL (32.3-35.6); MEAN CORPUSCULAR VOLUME 105.2 fL (75.5-95.3); MONOCYTES # (AUTO) 0.7 K/uL (2.0-10.0); MONOCYTES % (AUTO) 9.1 % (0.0-11.0); NEUTROPHILS # (AUTO) 5.5 K/uL (1.8-8.9); NEUTROPHILS % (AUTO) 67.2 % (38.5-71.5); PLATELET COUNT (AUTO) 228 K/uL (179-408); RED BLOOD CELL COUNT(AUTO) 2.57 MIL/uL (3.63-4.92); WHITE BLOOD COUNT (AUTO) 8.1 K/uL (3.8-11.8)
[2020-01-24] MEDS: IV 1/2NS 1000 ML 1,000 ML IV PRN ×2 (07:47→18:13)
[2020-01-24] MEDS: METOPROLOL TARTRATE 25 MG TABLET GT SCH ×2 (09:00→21:00)
[2020-01-24] MEDS: MULTIVITAMINS,THERAPEUTIC TABLET GT SCH (09:56)
[2020-01-24] MEDS: CHOLECALCIFEROL 1,000 UNIT TABLET GT SCH (09:56)
[2020-01-24] MEDS: APIXABAN 2.5 MG TABLET GT SCH ×2 (09:57→21:21)
[2020-01-24] MEDS: ESCITALOPRAM OXALATE 10 MG TABLET GT SCH (09:59)
[2020-01-24] MEDS: ASCORBIC ACID 500 MG TABLET GT SCH (10:00)
[2020-01-24] MEDS: SENNOSIDES 1 TABLET GT SCH ×2 (10:00→17:23)
[2020-01-24] MEDS: FLUTICASONE/VILANTEROL 1 EACH BLST.W.DEV IH SCH (10:01)
[2020-01-24] MEDS: LEVOTHYROXINE SODIUM 100 MCG VIAL IV SCH (10:02)
[2020-01-24] MEDS: SODIUM HYPOCHLORITE 0.125% (QUARTER STRENGTH) 473 ML BOTTLE TP SCH ×2 (10:03→20:16)
[2020-01-24] MEDS: POTASSIUM CHLORIDE 20 MEQ POWDER PACKET GT SCH ×2 (10:14→11:55)
[2020-01-24 11:41] VITALS: BP 108/57
--- NOTE | 2020-01-24 12:21 | NUR ---
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 HEEL DRESSINGS LEFT IN PLACE, DRY AND INTACT. RECOMMEND SURGICAL AND DPM CONSULTS. DR TENA AND DR HART NOTIFIED OF CONSULT REQUESTS. RECOMMENDATIONS MADE FOR SKIN PROTECTION. DISCUSSED WITH NURSING STAFF. MD IN AGREEMENT WITH PLAN OF CARE.
[2020-01-24 16:11] VITALS: BP 115/61
[2020-01-24] MEDS ORDERED: NEUTRA PHOS PACKET GT ONE (17:00)
[2020-01-24] MEDS: NYSTATIN/TRIAMCINOLONE CREAM 15 GM TUBE TP SCH (17:24)
--- NOTE | 2020-01-24 18:00 | NUR ---
Patient remains alert, not in any form of distress, on 2LPM via nasal cannula. IV line on the right hand patent, with no signs of infection. She denies any pain or discomfort. G-tube in place and patent, 0 residual. Head of bed kept elevated at 40degrees. Needs attended to promptly. Call light and frequently used items placed within patient's reach. Will endorse accordingly.
--- NOTE | 2020-01-24 19:30 | NUR ---
Received pt in bed, alert to self. Does not appear to be in any acute distress at this time. Feeding is running at 30cc/hr. Tube checked for placement. On 2L NC with no s/s of respiratory distress. No other issues or concerns at this time.
[2020-01-24 20:06] VITALS: BP 112/77
[2020-01-24] MEDS: GABAPENTIN 100 MG CAPSULE GT SCH (21:17)
[2020-01-24] MEDS: MONTELUKAST SODIUM 10 MG TABLET GT SCH (21:17)
[2020-01-24] MEDS: LINEZOLID 600 MG TABLET PO SCH (21:22)
--- NOTE | 2020-01-24 22:30 | NUR ---
Brother Albert was called and message was left regarding consent to wound debridement procedures for patient's hip and heel. Will f/u with brother to confirm that he received my message.
[2020-01-25] MEDS: BLOOD SUGAR DIAGNOSTIC 1 EACH STRIP VI SCH ×4 (00:22→17:21)
[2020-01-25] MEDS: INSULIN REGULAR, HUMAN 300 UNIT/3 ML VIAL SQ PRN ×3 (00:25→17:23)
[2020-01-25 04:12] VITALS: BP 117/57
[2020-01-25] MEDS: IV 1/2NS 1000 ML 1,000 ML IV PRN (04:32)
[2020-01-25] MEDS: PANTOPRAZOLE ORAL SUSPENSION 40 MG SUSPDR.PKT GT SCH (06:14)
--- NOTE | 2020-01-25 06:45 | NUR ---
Pt slept intermittently throughout the night. On 2L NC sating at 100%. Does not appear to be in any acute distress. Wound care done on B heels, R hip, sacrum and G-Tube. Still waiting for Albert, patient's brother, to call back regarding consent for wound debridement. Will attempt to call another time before shift ends. Safety and comfort provided. No other issues or concerns at this time. Will endorse to day shift.
[2020-01-25 07:25] LABS: CREATININE 1.3 mg/dL (0.6-1.3); PHOSPHOROUS 3.1 mg/dL (2.5-4.9); POTASSIUM 3.7 mmol/L (3.5-5.1)
[2020-01-25] MEDS: CHOLECALCIFEROL 1,000 UNIT TABLET GT SCH (08:05)
[2020-01-25] MEDS: ASCORBIC ACID 500 MG TABLET GT SCH (08:05)
[2020-01-25] MEDS: SENNOSIDES 1 TABLET GT SCH ×2 (08:05→16:16)
[2020-01-25] MEDS: MULTIVITAMINS,THERAPEUTIC TABLET GT SCH (08:05)
[2020-01-25] MEDS: APIXABAN 2.5 MG TABLET GT SCH ×2 (08:06→20:56)
[2020-01-25] MEDS: METOPROLOL TARTRATE 25 MG TABLET GT SCH ×2 (08:06→20:21)
[2020-01-25] MEDS: LINEZOLID 600 MG TABLET PO SCH ×2 (08:09→20:12)
[2020-01-25] MEDS: FLUTICASONE/VILANTEROL 1 EACH BLST.W.DEV IH SCH (08:09)
[2020-01-25] MEDS: LEVOTHYROXINE SODIUM 100 MCG VIAL IV SCH (08:19)
[2020-01-25] MEDS: THERAHONEY GEL 1.5 OZ TUBE TOP SCH (08:58)
[2020-01-25] MEDS: SODIUM HYPOCHLORITE 0.125% (QUARTER STRENGTH) 473 ML BOTTLE TP SCH ×2 (08:58)
[2020-01-25] MEDS ORDERED: LEVOTHYROXINE SODIUM 100 MCG VIAL IV SCH (09:00)
[2020-01-25 11:43] VITALS: BP 122/51
[2020-01-25] MEDS ORDERED: JEVITY 1.2 1000 ML LIQUID GT PRN (12:30)
[2020-01-25 15:52] VITALS: BP 129/57
[2020-01-25] MEDS: NYSTATIN/TRIAMCINOLONE CREAM 15 GM TUBE TP SCH (17:22)
[2020-01-25] MEDS: GABAPENTIN 100 MG CAPSULE GT SCH (20:11)
[2020-01-25] MEDS: MONTELUKAST SODIUM 10 MG TABLET GT SCH (20:12)
[2020-01-25 20:18] VITALS: BP 123/77
--- NOTE | 2020-01-25 21:18 | NUR ---
patient resting comfortably. all medications administered and tolerated well through gtube. no residual. increased feeding to 45ml/hr. confirmed with gabriela martinez np to increase feeding every 4 hours by 10ml/hr as tolerated with goal of 65ml/hr. v/s stable. on RA. no s/s of acute distress noted. safety precautions provided. will continue to monitor and assess.
[2020-01-26] MEDS: BLOOD SUGAR DIAGNOSTIC 1 EACH STRIP VI SCH ×3 (01:30→12:14)
[2020-01-26] MEDS: INSULIN REGULAR, HUMAN 300 UNIT/3 ML VIAL SQ PRN ×3 (01:31→12:17)
[2020-01-26] MEDS: PANTOPRAZOLE ORAL SUSPENSION 40 MG SUSPDR.PKT GT SCH (06:19)
[2020-01-26] MEDS ORDERED: LEVOTHYROXINE SODIUM 75 MCG TABLET PO SCH (07:30)
[2020-01-26 07:54] VITALS: BP 130/75
--- NOTE | 2020-01-26 08:02 | NUR ---
gabriela martinez np ordered to discontinue IV line.
[2020-01-26] MEDS: ASCORBIC ACID 500 MG TABLET GT SCH (08:37)
[2020-01-26] MEDS: LINEZOLID 600 MG TABLET PO SCH (08:37)
[2020-01-26] MEDS: SENNOSIDES 1 TABLET GT SCH (08:37)
[2020-01-26] MEDS: CHOLECALCIFEROL 1,000 UNIT TABLET GT SCH (08:37)
[2020-01-26] MEDS: MULTIVITAMINS,THERAPEUTIC TABLET GT SCH (08:37)
[2020-01-26 08:38] VITALS: BP 134/65
[2020-01-26] MEDS: METOPROLOL TARTRATE 25 MG TABLET GT SCH (08:38)
[2020-01-26] MEDS: APIXABAN 2.5 MG TABLET GT SCH (08:39)
[2020-01-26] MEDS: FLUTICASONE/VILANTEROL 1 EACH BLST.W.DEV IH SCH (08:57)
[2020-01-26] MEDS: THERAHONEY GEL 1.5 OZ TUBE TOP SCH (08:57)
[2020-01-26] MEDS: SODIUM HYPOCHLORITE 0.125% (QUARTER STRENGTH) 473 ML BOTTLE TP SCH ×2 (08:58)
[2020-01-26 10:41] LABS: BILIRUBIN,DIRECT 0.1 mg/dL (0.0-0.2); BILIRUBIN,TOTAL 0.2 mg/dL (0.2-1.0); TOTAL PROTEIN, SERUM 6.5 g/dL (6.4-8.2)
[2020-01-26] MEDS ORDERED: LINE600T12 PO (10:59)
[2020-01-26] MEDS ORDERED: PANT40SU2 GT (10:59)
[2020-01-26] MEDS ORDERED: SODI473S8 TP (10:59)
[2020-01-26] MEDS ORDERED: LEVO75TA7 PO (10:59)
[2020-01-26] MEDS ORDERED: LACT-209 GT (10:59)
--- NOTE | 2020-01-26 12:25 | NUR ---
SEEN BY [facility] - WOUND CARE, FOR DEBRIDEMENT. PATIENT COMBATIVE AND REFUSED TO BE TURNED. DEBRIDEMENT UNABLE TO BE DONE. DRESSING ON B/L HEELS CLEANSED AND CHANGED. WILL CONTINUE TO MONITOR.
--- NOTE | 2020-01-26 16:00 | NUR ---
PATIENT DISCHARGED HOME WITH HOME HEALTH. VSS. NO S/S OF DISTRESS OR SOB NOTED. REPORT GIVEN TO AMBULANCE PERSONNEL. BELONGINGS RETURNED TO PATIENT. IV DISCONTINUED BY PREVIOUS SHIFT. PHOTOS TAKEN AND PLACED IN CHART.
[2020-01-27] MEDS ORDERED: LEVOTHYROXINE SODIUM 50 MCG TABLET PO SCH (07:00)
[2020-02-01] MEDS ORDERED: ESCITALOPRAM OXALATE 10 MG TABLET GT SCH (09:00)
[2020-02-01] MEDS ORDERED: MIRTAZAPINE 15 MG TABLET GT SCH (21:00)
== END 2020-01-26 16:03 | disposition home health service (06) | DRG 871 ==
LOC: ER 18:51 → TELE3 23:55 → MEDSURG3 01-23 10:41
PROVIDERS: ADMIT Nurse Practitioner Acute Care; ATTEND Nurse Practitioner Acute Care
DX: A41.9 Sepsis, unspecified organism (principal); L89.214 Pressure ulcer of right hip, stage 4; L89.153 Pressure ulcer of sacral region, stage 3; G93.41 Metabolic encephalopathy; E43 Unspecified severe protein-calorie malnutrition; J69.0 Pneumonitis due to inhalation of food and vomit; N17.0 Acute kidney failure with tubular necrosis; R53.2 Functional quadriplegia; N39.0 Urinary tract infection, site not specified; D68.69 Other thrombophilia; L97.419 Non-pressure chronic ulcer of right heel and midfoot with unspecified severity; L97.429 Non-pressure chronic ulcer of left heel and midfoot with unspecified severity; E87.0 Hyperosmolality and hypernatremia; J96.12 Chronic respiratory failure with hypercapnia; Z16.21 Resistance to vancomycin; G81.94 Hemiplegia, unspecified affecting left nondominant side; R65.20 Severe sepsis without septic shock; D63.8 Anemia in other chronic diseases classified elsewhere; E11.40 Type 2 diabetes mellitus with diabetic neuropathy, unspecified; E11.51 Type 2 diabetes mellitus with diabetic peripheral angiopathy without gangrene; E11.621 Type 2 diabetes mellitus with foot ulcer; J45.909 Unspecified asthma, uncomplicated; I12.9 Hypertensive chronic kidney disease with stage 1 through stage 4 chronic kidney disease, or unspecified chronic kidney disease; M24.562 Contracture, left knee; M24.561 Contracture, right knee; R13.10 Dysphagia, unspecified; N18.30 Chronic kidney disease, stage 3 unspecified; Z79.4 Long term (current) use of insulin; Z93.1 Gastrostomy status; Z87.820 Personal history of traumatic brain injury; E86.0 Dehydration; E83.51 Hypocalcemia; E78.5 Hyperlipidemia, unspecified; E03.9 Hypothyroidism, unspecified; F01.50 Vascular dementia, unspecified severity, without behavioral disturbance, psychotic disturbance, mood disturbance, and anxiety; Z87.440 Personal history of urinary (tract) infections; L89.226 Pressure-induced deep tissue damage of left hip; E88.09 Other disorders of plasma-protein metabolism, not elsewhere classified; M62.50 Muscle wasting and atrophy, not elsewhere classified, unspecified site; Z68.23 Body mass index [BMI] 23.0-23.9, adult; E87.5 Hyperkalemia; E83.41 Hypermagnesemia; S20.422A Blister (nonthermal) of left back wall of thorax, initial encounter; S70.321A Blister (nonthermal), right thigh, initial encounter; X58.XXXA Exposure to other specified factors, initial encounter; Y93.9 Activity, unspecified; Y92.009 Unspecified place in unspecified non-institutional (private) residence as the place of occurrence of the external cause; B95.2 Enterococcus as the cause of diseases classified elsewhere
CPT/HCPCS: 36415; 36600; 70030-TC; 71045; 83605; 83615; 83735; 84100; 84443; 84480; 85025; 85730; 86140; 86803; 87040; 87077; 87086; 87400; 87806; 93005; A4663; G0378; J0696; J1815; J1956; J3490; J7030; J7042; J7060; U0003